=== PATIENT | female | born 1960 | race African-American/Black ===

== ENCOUNTER 2019-10-04 01:16 | Inpatient (IN) | payer MEDICAID ==
[~2019-10-04] VITALS: Ht 172.7 cm; Wt 80.7 kg
--- NOTE | 2019-10-04 02:06 | Emergency Room Report ---
History of Present Illness General Chief Complaint: Lower Extremity Injury Source: Patient Present Illness HPI 59-year-old female presents with left big toe pain and swelling. States that she injured it a few days ago. States that there appears to be drainage and pus. States she is a diabetic. Pain is throbbing, 10 out of 10, nonradiating. Feels chills. Afebrile in triage. Tachycardic. Denies chest pain or shortness of breath. Denies nausea or vomiting. No other aggravating relieving factors. Denies any other associated symptoms Allergies: Coded Allergies: No Known Allergies (Unverified , 10/04/19) COVID-19 Screening Contact w/high risk pt: No Experienced COVID-19 symptoms?: No COVID-19 Testing performed SYSTEM SPECIALIST: No Patient History Past Medical History: DM Past Surgical History: none Pertinent Family History: none Social History: Denies: smoking, alcohol use, drug use Last Menstrual Period: 2004 Now: No : 5 Para: 5 Immunizations: UTD Reviewed Nursing Documentation: PMH: Agreed; PSxH: Agreed Nursing Documentation-PMH Past Medical History: No History, Except For Hx Diabetes: Yes Review of Systems All Other Systems: negative except mentioned in HPI Physical Exam Vital Signs Date Time Temp Pulse Resp B/P (MAP) Pulse Ox O2 Delivery O2 Flow Rate FiO2 10/04/19 01:27 99.1 121 18 114/72 (86) 95 Room Air Sp02 EP Interpretation: reviewed, normal General Appearance: no apparent distress, alert, GCS 15, non-toxic Head: normocephalic Eyes: bilateral eye normal inspection, bilateral eye PERRL ENT: normal ENT inspection Neck: normal inspection Respiratory: chest non-tender, lungs clear, normal breath sounds, speaking full sentences Cardiovascular #1: no edema, tachycardia Gastrointestinal: normal bowel sounds, non tender, soft, non-distended, no guarding, no rebound Rectal: deferred Genitourinary: no CVA tenderness Musculoskeletal: back normal, normal range of motion, gait/station normal, swelling - L big toe Neurologic: alert, motor strength/tone normal, oriented x3, sensory intact, responsive, speech normal Psychiatric: normal inspection Skin: other - L big toe swelling/erythema/induration Lymphatic: normal inspection Procedures Critical Care Time Critical Care Time i. I feel this is a highly complex case requiring extensive working including EKG/Rhythm strip, Xray/CT/US, Blood/urine lab work, repeat exams while in ED, and administration of strong opiates/narcotics for pain control, admission to hospital or close patient follow up. Total time: 30 min bedside evaluation and treatment excludes procedures (EKG). Reason for critical care: tachycardia Possible complications: hypotension, hypertension, [place], shock, arrhythmias, metabolic acidosis, end organ damage, respiratory failure. Interventions: labs, IVFS, abx, insulin Course: patient presenting with pain/drainage L big toe. glucose > 400 no evidence of DKA, no leukocytosis. Xray no evidence of osteomyelitis. tachycardia improved after IVFS. Consultations: nursing staff, EMS, family Performed by: Dr Miller Tolerated well condition = serious j. because of unstable vital signs this patient had a condition that could potentially threaten life or limb. I feel this is a critical patient who required my full attention while patient was considered critical. Total Critical Care Time excluding procedures was greater than 35 minutes Medical Decision Making Diagnostic Impression: Primary Impression: Cellulitis of toe of left foot Additional Impression: Uncontrolled diabetes mellitus Qualified Codes: E13.65 - Other specified diabetes mellitus with hyperglycemia ER Course Hospital Course 59-year-old female presents to ED with pain/swelling L big toe. Differential diagnoses include: Cellulitis, abscess, rash. Clinical course Patient placed on stretcher. After initial history and physical I ordered labs , blood Cx, UA, IVFs labs reviewed - no leukocytosis, Hb/Hct stable, glucose > 400 no evidnece of DKA , lactic 2.2 EKG - sinus tachycardia no acute ischemic changes interpreted by me foot xray - no obvious evidence of osteomyelitis antibiotics given. given IVFs. given insulin Case discussed with Dr Barkley and he agreed to accept the patient to his service for further care and support Initially tachycardic resolved with IV fluids. Diagnosis - cellulitis of toe of L foot, uncontrolled diabetes Patient admitted to floor in serious condition Laboratory Tests Test 10/04/19 01:45 10/04/19 02:20 White Blood Count 7.8 K/UL (4.8-10.8) Red Blood Count 4.28 M/UL (4.20-5.40) Hemoglobin 11.6 G/DL (12.0-16.0) L Hematocrit 35.7 % (37.0-47.0) L Mean Corpuscular Volume 83 FL (80-99) Mean Corpuscular Hemoglobin 27.1 PG (27.0-31.0) Mean Corpuscular Hemoglobin Concent 32.6 G/DL (32.0-36.0) Red Cell Distribution Width 12.9 % (11.6-14.8) Platelet Count 260 K/UL (150-450) Mean Platelet Volume 8.2 FL (6.5-10.1) Neutrophils (%) (Auto) 70.8 % (45.0-75.0) Lymphocytes (%) (Auto) 19.1 % (20.0-45.0) L Monocytes (%) (Auto) 8.7 % (1.0-10.0) Eosinophils (%) (Auto) 0.4 % (0.0-3.0) Basophils (%) (Auto) 1.0 % (0.0-2.0) Sodium Level 133 MMOL/L (136-145) L Potassium Level 4.2 MMOL/L (3.5-5.1) Chloride Level 98 MMOL/L (98-107) Carbon Dioxide Level 27 MMOL/L (21-32) Anion Gap 8 mmol/L (5-15) Blood Urea Nitrogen 23 mg/dL (7-18) H Creatinine 1.1 MG/DL (0.55-1.30) Estimat Glomerular Filtration Rate > 60 mL/min (>60) Glucose Level 403 MG/DL (74-106) H Calcium Level 10.2 MG/DL (8.5-10.1) H Total Bilirubin 0.2 MG/DL (0.2-1.0) Aspartate Amino Transf (AST/SGOT) 16 U/L (15-37) Alanine Aminotransferase (ALT/SGPT) 22 U/L (12-78) Alkaline Phosphatase 93 U/L (46-116) Total Protein 8.0 G/DL (6.4-8.2) Albumin 3.6 G/DL (3.4-5.0) Globulin 4.4 g/dL Albumin/Globulin Ratio 0.8 (1.0-2.7) L Lactic Acid Level 2.20 mmol/L (0.4-2.0) H EKG Diagnostic Results Rate: tachycardiac Rhythm: NSR ST Segments: no acute changes ASA given to the pt in ED: No Rhythm Strip Diag. Results EP Interpretation: yes Rhythm: NSR, no PVC's, no ectopy Other X-Ray Diagnostic Results Other X-Ray Diagnostic Results : X-Ray ordered: L foot # of Views/Limited Vs Complete: 3 View Indication: Pain EP Interpretation: Yes Interpretation: no dislocation, no soft tissue swelling, no fractures Impression: No acute disease Electronically Signed by: Electronically signed by Malik Miller MD Last Vital Signs Date Time Temp Pulse Resp B/P (MAP) Pulse Ox O2 Delivery O2 Flow Rate FiO2 10/04/19 01:27 99.1 121 18 114/72 (86) 95 Room Air Status: improved Disposition: ADMITTED INPATIENT Condition: Serious Referrals: NOT CHOSEN IPA/,REFERRING (PCP) Malik Miller MD Oct 04, 2019 02:06
[2019-10-04 02:34] LABS: ANION GAP 8 mmol/L (5-15); BLOOD UREA NITROGEN 23 mg/dL (7-18); CALCIUM 10.2 MG/DL (8.5-10.1); CARBON DIOXIDE 27 MMOL/L (21-32); CHLORIDE 98 MMOL/L (98-107); CREATININE 1.1 MG/DL (0.55-1.30); EOSINOPHILS % (AUTO) 0.4 % (0.0-3.0); HEMATOCRIT 35.7 % (37.0-47.0); HEMOGLOBIN 11.6 G/DL (12.0-16.0); LYMPHOCYTES % (AUTO) 19.1 % (20.0-45.0); MEAN CORPUSCULAR VOLUME 83 FL (80-99); MONOCYTES % (AUTO) 8.7 % (1.0-10.0); NEUTROPHILS % (AUTO) 70.8 % (45.0-75.0); PLATELET COUNT 260 K/UL (150-450); POTASSIUM 4.2 MMOL/L (3.5-5.1); RED BLOOD COUNT 4.28 M/UL (4.20-5.40); RED CELL DISTRIBUTION WIDTH 12.9 % (11.6-14.8); SODIUM 133 MMOL/L (136-145); WHITE BLOOD COUNT 7.8 K/UL (4.8-10.8)
[2019-10-04 02:37] LABS: ALANINE AMINOTRANSFERASE 22 U/L (12-78); ALBUMIN 3.6 G/DL (3.4-5.0); ALBUMIN/GLOBULIN RATIO 0.8 (1.0-2.7); ALKALINE PHOSPHATASE 93 U/L (46-116); ASPARTATE AMINO TRANSFERASE 16 U/L (15-37); BILIRUBIN,TOTAL 0.2 MG/DL (0.2-1.0)
[2019-10-04] MEDS ORDERED: Insulin Human Regular 100units/ml 3ml IV ONE (02:45)
[2019-10-04] MEDS ORDERED: Morphine Sulfate 4mg/ml Inj (IV USE ONLY) IVP PRN (03:00)
[2019-10-04] MEDS ORDERED: Ketorolac 30mg Inj IV PRN (03:00)
[2019-10-04] MEDS ORDERED: METFORMIN500 MG/5 M PO (03:25)
[2019-10-04] MEDS ORDERED: HUMALOG100 UNIT/3 SUBQ (03:25)
[2019-10-04] MEDS ORDERED: LANTUS SOL100 UNIT/1 SUBQ (03:25)
[2019-10-04 04:00] VITALS: BP 123/74
[2019-10-04] MEDS ORDERED: Morphine Sulfate 2mg/ml Inj(IV/IM USE ONLY) IVP PRN (06:45)
[2019-10-04 08:00] VITALS: BP 106/55
[2019-10-04] MEDS: Heparin 5000 units/ml inj SUBQ SCH ×2 (08:55→22:11)
[2019-10-04] MEDS ORDERED: metFORMIN 500mg tab ORAL SCH (09:00)
[2019-10-04] MEDS: Levemir Flexpen SUBQ SCH (09:40)
--- NOTE | 2019-10-04 10:08 | Diagnostic Imaging Report ---
EXAM: X-RAY XRAY Foot Complete L CLINICAL HISTORY: Foot pain. No history of injury.. COMPARISON: None FINDINGS: Total of 3 views of the left foot were obtained. Alignment is anatomic. There is no fracture, bony lesions or erosions. Joint spaces are unremarkable. Surrounding soft tissue is normal. IMPRESSION: NO ACUTE BONY ABNORMALITY.
--- NOTE | 2019-10-04 10:28 | Consultation ---
History of Present Illness General Date patient seen: Oct 04, 2019 Chief Complaint: Lower Extremity Injury Present Illness HPI 59 y/o F with hx of Dm2 presented to ED on 10/03 with L 1st toe pain and swelling after a injury a few days ago. Patient reports it drain pus. Pain is described as throbbing, 10/10 intensity and non radiating. + chills. Denied chest pain, SOB, n/v/d. Allergies: Coded Allergies: No Known Allergies (Unverified , 10/04/19) Medication History Scheduled Insulin Glargine (Lantus), 15 SUBQ BEDTIME, (Reported) Insulin Lispro (Humalog), 12 UNITS SUBQ AC, (Reported) Metformin HCl (Metformin HCl), 1,000 MG PO BID, (Reported) Patient History Healthcare decision maker Resuscitation status Advanced Directive on File Patient History Narrative Pmhx: as above Shx: Denies: smoking, alcohol use, drug use Fhx: non contributory Review of Systems All Other Systems: negative except mentioned in HPI Physical Exam Physical Exam Narrative General Appearance: no apparent distress, alert Head: normocephalic Eyes: bilateral eye normal inspection, bilateral eye PERRL ENT: normal ENT inspection Neck: normal inspection Respiratory: chest non-tender, lungs clear, normal breath sounds, speaking full sentences Cardiovascular #1: no edema, tachycardia Gastrointestinal: normal bowel sounds, non tender, soft, non-distended, no guarding, no rebound Skin: other - L big toe swelling/erythema/induration Last 24 Hour Vital Signs Date Time Temp Pulse Resp B/P (MAP) Pulse Ox O2 Delivery O2 Flow Rate FiO2 10/04/19 08:00 98.4 95 17 106/55 (72) 99 10/04/19 04:53 Room Air 10/04/19 04:00 98.2 102 18 123/74 (90) 98 10/04/19 03:41 98.9 98 18 127/78 97 Room Air 10/04/19 01:27 99.1 121 18 114/72 (86) 95 Room Air Laboratory Tests Test 10/04/19 01:45 10/04/19 02:20 10/04/19 03:25 White Blood Count 7.8 K/UL (4.8-10.8) Red Blood Count 4.28 M/UL (4.20-5.40) Hemoglobin 11.6 G/DL (12.0-16.0) L Hematocrit 35.7 % (37.0-47.0) L Mean Corpuscular Volume 83 FL (80-99) Mean Corpuscular Hemoglobin 27.1 PG (27.0-31.0) Mean Corpuscular Hemoglobin Concent 32.6 G/DL (32.0-36.0) Red Cell Distribution Width 12.9 % (11.6-14.8) Platelet Count 260 K/UL (150-450) Mean Platelet Volume 8.2 FL (6.5-10.1) Neutrophils (%) (Auto) 70.8 % (45.0-75.0) Lymphocytes (%) (Auto) 19.1 % (20.0-45.0) L Monocytes (%) (Auto) 8.7 % (1.0-10.0) Eosinophils (%) (Auto) 0.4 % (0.0-3.0) Basophils (%) (Auto) 1.0 % (0.0-2.0) Sodium Level 133 MMOL/L (136-145) L Potassium Level 4.2 MMOL/L (3.5-5.1) Chloride Level 98 MMOL/L (98-107) Carbon Dioxide Level 27 MMOL/L (21-32) Anion Gap 8 mmol/L (5-15) Blood Urea Nitrogen 23 mg/dL (7-18) H Creatinine 1.1 MG/DL (0.55-1.30) Estimat Glomerular Filtration Rate > 60 mL/min (>60) Glucose Level 403 MG/DL (74-106) H Calcium Level 10.2 MG/DL (8.5-10.1) H Total Bilirubin 0.2 MG/DL (0.2-1.0) Aspartate Amino Transf (AST/SGOT) 16 U/L (15-37) Alanine Aminotransferase (ALT/SGPT) 22 U/L (12-78) Alkaline Phosphatase 93 U/L (46-116) Total Protein 8.0 G/DL (6.4-8.2) Albumin 3.6 G/DL (3.4-5.0) Globulin 4.4 g/dL Albumin/Globulin Ratio 0.8 (1.0-2.7) L Lactic Acid Level 2.20 mmol/L (0.4-2.0) H 2.30 mmol/L (0.66-2.22) H Height (Feet): 5 Height (Inches): 8.00 Weight (Pounds): 178 Medications Current Medications Medications (Trade) Dose Ordered Sig/Jerman Route PRN Reason Start Time Stop Time Status Last Admin Dose Admin Dextrose (Dextrose 50%) 25 ml Q30M PRN IV Hypoglycemia 10/04/19 06:45 01/02/20 06:44 Dextrose (Dextrose 50%) 50 ml Q30M PRN IV Hypoglycemia 10/04/19 06:45 01/02/20 06:44 Heparin Sodium (Porcine) (Heparin 5000 units/ml) 5,000 units EVERY 12 HOURS SUBQ 10/04/19 09:00 11/18/19 08:59 10/04/19 08:55 Insulin Aspart (NovoLOG) BEFORE MEALS AND HS SUBQ 10/04/19 11:30 01/02/20 11:29 Insulin Detemir (Levemir) 24 units DAILY SUBQ 10/04/19 09:00 01/02/20 08:59 10/04/19 09:40 Metformin HCl (Glucophage) 1,000 mg BID ORAL 10/04/19 09:00 11/03/19 08:59 10/04/19 08:52 Morphine Sulfate (Morphine Sulfate) 2 mg Q4H PRN IVP For Pain 10/04/19 06:45 10/11/19 06:44 Sodium Chloride 1,000 ml @ 75 mls/hr [id number] IV 10/04/19 07:44 11/03/19 07:43 10/04/19 08:52 Assessment/Plan Assessment/Plan: Abx: Clindamycin x1 10/03 Assessment: L 1st toe cellulitis, probable abscess- r/o OM -L foot xray: NO ACUTE BONY ABNORMALITY. Afebrile No leukocytosis Dm2 Plan: -Start empiric IV Vancomycin, Flagyl and Ceftriazone -f/u cx -Monitor CBC/CMP, temperatures -ESR, CRP -podiatry eval -f/u MRI Thank you for this consultation. Will continue to follow along with you. Discussed with Dionne Hendrix M.D. Oct 04, 2019 10:28
[2019-10-04] MEDS: NovoLOG Insulin Flexpen SUBQ SCH ×3 (11:48→21:00)
[2019-10-04] MEDS ORDERED: NovoLOG Insulin Flexpen SUBQ ONE (11:50)
[2019-10-04] MEDS: cefTRIAXone 1 GM in D5W 55 ML IVPB SCH (11:50)
[2019-10-04 12:00] VITALS: BP 129/75
[2019-10-04] MEDS: Vancomycin 1 GM in NS 275 ML IVPB SCH (13:26)
[2019-10-04] MEDS ORDERED: Gadavist 7.5mMol/7.5ml vial IV PRN (13:30)
--- NOTE | 2019-10-04 13:50 | Consultation ---
History of Present Illness General Date patient seen: Oct 04, 2019 Chief Complaint: Lower Extremity Injury Referring physician: Dr. Barkley Reason for Consultation: L foot cellulitis and possible osteomyelitis. Present Illness HPI Pt seen bedside for L foot cellulitis and infection of great toe. She states over the past few day she has noticed increased drainage and pain to her Great toe. She denies any recent constitutional symptoms. Allergies: Coded Allergies: No Known Allergies (Unverified , 10/04/19) Medication History Scheduled Insulin Glargine (Lantus), 15 SUBQ BEDTIME, (Reported) Insulin Lispro (Humalog), 12 UNITS SUBQ AC, (Reported) Metformin HCl (Metformin HCl), 1,000 MG PO BID, (Reported) Patient History Healthcare decision maker Resuscitation status Advanced Directive on File Physical Exam Physical Exam Narrative Focused LLE Exam Derm: L foot edema and erythema noted. (+) purulent drainage noted to L hallux distal tip. Vasc: 1/4 DP/PT pulses. WORKFORCE ADVISOR < seconds. Neuro: SILT diminished. MSK: MS/ROM WNL. Last 24 Hour Vital Signs Date Time Temp Pulse Resp B/P (MAP) Pulse Ox O2 Delivery O2 Flow Rate FiO2 10/04/19 12:00 98.2 61 18 129/75 (93) 97 10/04/19 09:00 Room Air 10/04/19 08:00 98.4 95 17 106/55 (72) 99 10/04/19 04:53 Room Air 10/04/19 04:00 98.2 102 18 123/74 (90) 98 10/04/19 03:41 98.9 98 18 127/78 97 Room Air 10/04/19 01:27 99.1 121 18 114/72 (86) 95 Room Air Intake and Output 10/03/19 10/04/19 19:00 07:00 # Voids 2 Laboratory Tests Test 10/04/19 01:45 10/04/19 02:20 10/04/19 03:25 White Blood Count 7.8 K/UL (4.8-10.8) Red Blood Count 4.28 M/UL (4.20-5.40) Hemoglobin 11.6 G/DL (12.0-16.0) L Hematocrit 35.7 % (37.0-47.0) L Mean Corpuscular Volume 83 FL (80-99) Mean Corpuscular Hemoglobin 27.1 PG (27.0-31.0) Mean Corpuscular Hemoglobin Concent 32.6 G/DL (32.0-36.0) Red Cell Distribution Width 12.9 % (11.6-14.8) Platelet Count 260 K/UL (150-450) Mean Platelet Volume 8.2 FL (6.5-10.1) Neutrophils (%) (Auto) 70.8 % (45.0-75.0) Lymphocytes (%) (Auto) 19.1 % (20.0-45.0) L Monocytes (%) (Auto) 8.7 % (1.0-10.0) Eosinophils (%) (Auto) 0.4 % (0.0-3.0) Basophils (%) (Auto) 1.0 % (0.0-2.0) Sodium Level 133 MMOL/L (136-145) L Potassium Level 4.2 MMOL/L (3.5-5.1) Chloride Level 98 MMOL/L (98-107) Carbon Dioxide Level 27 MMOL/L (21-32) Anion Gap 8 mmol/L (5-15) Blood Urea Nitrogen 23 mg/dL (7-18) H Creatinine 1.1 MG/DL (0.55-1.30) Estimat Glomerular Filtration Rate > 60 mL/min (>60) Glucose Level 403 MG/DL (74-106) H Calcium Level 10.2 MG/DL (8.5-10.1) H Total Bilirubin 0.2 MG/DL (0.2-1.0) Aspartate Amino Transf (AST/SGOT) 16 U/L (15-37) Alanine Aminotransferase (ALT/SGPT) 22 U/L (12-78) Alkaline Phosphatase 93 U/L (46-116) Total Protein 8.0 G/DL (6.4-8.2) Albumin 3.6 G/DL (3.4-5.0) Globulin 4.4 g/dL Albumin/Globulin Ratio 0.8 (1.0-2.7) L Lactic Acid Level 2.20 mmol/L (0.4-2.0) H 2.30 mmol/L (0.66-2.22) H Microbiology Date/Time Source Procedure Growth Status 10/04/19 03:25 Foot Left Gram Stain - Final Resulted 10/04/19 03:25 Foot Left Wound Culture Pending Resulted Height (Feet): 5 Height (Inches): 8.00 Weight (Pounds): 178 Medications Current Medications Medications (Trade) Dose Ordered Sig/Jerman Route PRN Reason Start Time Stop Time Status Last Admin Dose Admin Ceftriaxone Sodium 1 gm/ Dextrose 55 ml @ 110 mls/hr Q24H IVPB 10/04/19 12:00 10/11/19 11:59 10/04/19 11:50 Dextrose (Dextrose 50%) 25 ml Q30M PRN IV Hypoglycemia 10/04/19 06:45 01/02/20 06:44 Dextrose (Dextrose 50%) 50 ml Q30M PRN IV Hypoglycemia 10/04/19 06:45 01/02/20 06:44 Gadobutrol (Gadavist) 7.5 mmol NOW PRN IV Radiology Procedure 10/04/19 13:30 10/08/19 13:19 Heparin Sodium (Porcine) (Heparin 5000 units/ml) 5,000 units EVERY 12 HOURS SUBQ 10/04/19 09:00 11/18/19 08:59 10/04/19 08:55 Insulin Aspart (NovoLOG) BEFORE MEALS AND HS SUBQ 10/04/19 11:30 01/02/20 11:29 10/04/19 11:48 Insulin Detemir (Levemir) 24 units DAILY SUBQ 10/04/19 09:00 01/02/20 08:59 10/04/19 09:40 Morphine Sulfate (Morphine Sulfate) 2 mg Q4H PRN IVP For Pain 10/04/19 06:45 10/11/19 06:44 Sodium Chloride 1,000 ml @ 75 mls/hr [id number] IV 10/04/19 07:44 11/03/19 07:43 10/04/19 08:52 Vancomycin HCl (Vanco pharmacy to dose) 1 ea DAILY PRN MISC Per rx protocol 10/04/19 10:30 11/03/19 10:29 Vancomycin HCl 1 gm/Sodium Chloride 275 ml @ 183.708 mls/hr Q12HR@0100,1300 IVPB 10/04/19 13:00 10/09/19 12:59 10/04/19 13:26 Assessment/Plan Assessment/Plan: A: - L foot Cellulitis with hallux ulceration. - DM P: - Pt seen and evaluated. - Discuss findings with patient. - lab and chart reviewed. - MRI LLE order in chart, R/O OM or infectious process. - Arterial U/S LLE ordered, R/O PVD. - Cont IV ABx. - Daily betadine dressing. - Rec Vasc consult. - Patient may require surgical intervention pending MRI official report, medical and vasc clearance. - Podiatry will cont to monitor. David Caicedo DPM Oct 04, 2019 13:50
--- NOTE | 2019-10-04 15:45 | History and Physical Report ---
DATE OF ADMISSION: 10/04/2019 DATE AND TIME SEEN: 10/04/2019 at 10 a.m. CONSULTANTS: 1. Dr. Julian. 2. Kyle De Jesus MD 3. Laz Lazaro MD CHIEF COMPLAINT: Cellulitis of left toe, diabetes. BRIEF HISTORY: A 59-year-old female, who lives at home, presents with 3-days of increased cellulitis of the left toe, slightly draining, blood sugar out of control, came to [place], diagnosed with above, admitted to medical floor. Currently, calm in bed. No complaint. No chest pain. No shortness of breath. No nausea, vomiting, or diarrhea. PAST MEDICAL HISTORY: Diabetes and left toe injury. PAST SURGICAL HISTORY: Gallbladder. ALLERGIES: Denies. MEDICATIONS: Include insulin, metformin, heparin, morphine, Zofran, Tylenol. SOCIAL HISTORY: No smoking. No alcohol. No intravenous drug abuse. FAMILY HISTORY: Noncontributory. PHYSICAL EXAMINATION: GENERAL: Calm in bed, oriented x3, in no acute distress. VITAL SIGNS: Temperature is 98, pulse 95, respirations 17, blood pressure 106/65. CARDIOVASCULAR: No murmurs. LUNGS: Distant and clear. ABDOMEN: Bowel sounds are positive. Nontender. Nondistended. EXTREMITIES: No cyanosis, clubbing, or edema. Left toe is slightly swollen, slightly red, slightly draining NEUROLOGIC: The patient moves all extremities, slightly weak. LABORATORY AND DIAGNOSTIC DATA: Labs at this time show hemoglobin and hematocrit 11 and 35, otherwise CBC is normal. BMP shows sodium 133, BUN 23. Glucose was 403. Lactic acid 2.3. Calcium 10.2. ASSESSMENT: 1. Cellulitis, left toe drainage. 2. Anemia. 3. Diabetes, uncontrolled. PLAN: 1. Blood pressure, blood sugar, and pain control. 2. Wound care. 3. Dietary followup. 4. Antibiotics per Infectious Disease. 5. CBC and BMP in the morning. Hieu Barkley D.O. DR: IGLESIA JOB#: [id number] CC:
[2019-10-04 16:00] VITALS: BP 112/57
[2019-10-04] MEDS: metroNIDAZOLE 500mg tab ORAL SCH ×2 (16:11→22:06)
--- NOTE | 2019-10-04 16:14 | Diagnostic Imaging Report ---
Indication: Left first toe swelling with pain and draining pus Technique: Sagittal, coronal, and axial T1-weighted and STIR images of the left forefoot Comparison: No comparison MRI studies. Reference made to plain radiographs of earlier the same day Findings: There is markedly increased STIR signal and decreased T1 signal within the first distal phalanx. No other marrow signal abnormality is demonstrated. There is edema of the subcutaneous fat of the dorsum of the foot. There is circumferential edema of the soft tissues of the great toe. No discrete fluid collection to suggest drainable abscess demonstrated. Impression: Findings consistent with osteomyelitis of the first distal phalanx Dorsal soft tissue edema of the forefoot as well as circumferential edema of the great toe, most likely indicating cellulitis given stated clinical history. No evidence of drainable abscess Findings discussed by phone with Dr. Copeland the time of interpretation
--- NOTE | 2019-10-04 16:15 | Consultation ---
DATE OF CONSULTATION: 10/04/2019 ENDOCRINOLOGY CONSULTATION CONSULTING PHYSICIAN: Kyle De Jesus MD. REFERRING PHYSICIAN: Hieu Barkley DO. REASON FOR CONSULTATION: Diabetes management. HISTORY OF PRESENT ILLNESS: Patient is a 59-year-old female with history of diabetes for the past 25 years. She is on insulin Lantus and NovoLog as an outpatient. She presented to the hospital with the left big toe pain and swelling after injury few days before. Patient was admitted to the floor for observation and treatment of cellulitis. I was called to manage diabetes since the glucose has been running high. PAST MEDICAL HISTORY: Diabetes. PAST SURGICAL HISTORY: None. FAMILY HISTORY: Diabetes runs in both sides of the family. SOCIAL HISTORY: No smoking, alcohol, or drug use. REVIEW OF SYSTEMS: A 12-point review of systems was performed. The pertinent positives and negatives as mentioned in the history of present illness. LABORATORY VALUES: WBC 7.8, hemoglobin 11.6, hematocrit 35.7, platelets of 260. Sodium 133, potassium 4.2, chloride 98, bicarb 27, BUN 33, creatinine 1.1, glucose of 403, calcium of 10.2. PHYSICAL EXAMINATION: GENERAL: Patient is awake and alert, very pleasant. VITAL SIGNS: Blood pressure 106/55, heart rate 95, respiratory rate 17, temperature 98.4. HEENT: Pupils are equal and reactive to light and accommodation. Sclerae are anicteric. NECK: No JVD. No thyromegaly. No bruits. LUNGS: Clear. HEART: Regular rate and rhythm. ABDOMEN: Positive bowel sounds. Soft. EXTREMITIES: No clubbing or cyanosis. Positive for toe ulceration and cellulitis. DIAGNOSES: 1. Diabetes out of control. 2. Lactic acidosis. 3. Toe infection. PLAN: 1. Discontinue metformin since the patient has lactic acidosis. 2. Start Levemir 24 units daily. 3. Start NovoLog 8 units before each meal. 4. NovoLog sliding scale before meals and at bedtime. 5. Further adjustment according to the blood glucose values. I will follow her during the hospital stay. Thank you, Dr. Barkley, for the courtesy of this consultation. Kyle De Jesus M.D. DR: JENIFER JOB#: [id number] CC:
[2019-10-04 20:00] VITALS: BP 113/72
--- NOTE | 2019-10-04 20:41 | Consultation ---
History of Present Illness General Date patient seen: Oct 04, 2019 Reason for Hospitalization: Lower Extremity Injury Present Illness HPI 59F DM presented with left great toe cellulitis. trauma recently and since pain and swelling. admitted for care and management. ulcer noted on toe. surgery called to evaluate Allergies: Coded Allergies: No Known Allergies (Unverified , 10/04/19) COVID-19 Screening Contact w/high risk pt: No Experienced COVID-19 symptoms?: No Medication History Scheduled Insulin Glargine (Lantus), 15 SUBQ BEDTIME, (Reported) Insulin Lispro (Humalog), 12 UNITS SUBQ AC, (Reported) Metformin HCl (Metformin HCl), 1,000 MG PO BID, (Reported) Patient History History Provided By: Patient Healthcare decision maker Resuscitation status Advanced Directive on File Past Medical/Surgical History Past Medical/Surgical History: (1) Hyperglycemia (2) Uncontrolled diabetes mellitus (3) Cellulitis of toe of left foot Review of Systems Review of Symptoms General ROS: no weight loss or fever Psychological ROS: no depression or mood changes, no memory loss Ophthalmic ROS: no visual changes or eye irritation ENT ROS: no nasal congestion, hearing loss, dizziness Allergy and Immunology ROS: no allergic symptoms or urticaria Hematological and Lymphatic ROS: no swollen glands, unusual bleeding or bruising Endocrine ROS: no polyuria, polydipsia, weight changes, temperature intolerance Respiratory ROS: no cough, shortness of breath, or wheezing Cardiovascular ROS: no chest pain or dyspnea on exertion Gastrointestinal ROS: denies abdominal pain, bright red blood in stool. Musculoskeletal ROS: no myalgias or arthralgias Neurological ROS: no TIA or stroke symptoms Dermatological ROS: no new or changing skin lesions, rashes or pruritis Physical Exam Physical Exam General appearance: alert, cooperative, no distress, appears stated age Head: Normocephalic, without obvious abnormality, atraumatic Eyes: conjunctivae/corneas clear. PERRL, EOM's intact. Fundi benign Throat: Lips, mucosa, and tongue normal. Teeth and gums normal Neck: supple, symmetrical, trachea midline, no adenopathy, thyroid: not enlarged, symmetric, no tenderness/mass/nodules, no carotid bruit and no JVD Lungs: clear to auscultation bilaterally Heart: regular rate and rhythm, S1, S2 normal, no murmur, click, rub or gallop Abdomen: soft, non-tender. Bowel sounds normal. No masses, no organomegaly Extremities: extremities see below Pulses: decreased b/l Skin: Skin color, texture, turgor normal. No rashes or lesions Neurologic: Grossly normal Last 24 Hour Vital Signs Date Time Temp Pulse Resp B/P (MAP) Pulse Ox O2 Delivery O2 Flow Rate FiO2 10/04/19 16:00 98.4 88 18 112/57 (75) 100 10/04/19 12:00 98.2 61 18 129/75 (93) 97 10/04/19 09:00 Room Air 10/04/19 08:00 98.4 95 17 106/55 (72) 99 10/04/19 04:53 Room Air 10/04/19 04:00 98.2 102 18 123/74 (90) 98 10/04/19 03:41 98.9 98 18 127/78 97 Room Air 10/04/19 01:27 99.1 121 18 114/72 (86) 95 Room Air Intake and Output 10/03/19 10/04/19 19:00 07:00 # Voids 2 Laboratory Tests Test 10/04/19 01:45 10/04/19 02:20 10/04/19 03:25 White Blood Count 7.8 K/UL (4.8-10.8) Red Blood Count 4.28 M/UL (4.20-5.40) Hemoglobin 11.6 G/DL (12.0-16.0) L Hematocrit 35.7 % (37.0-47.0) L Mean Corpuscular Volume 83 FL (80-99) Mean Corpuscular Hemoglobin 27.1 PG (27.0-31.0) Mean Corpuscular Hemoglobin Concent 32.6 G/DL (32.0-36.0) Red Cell Distribution Width 12.9 % (11.6-14.8) Platelet Count 260 K/UL (150-450) Mean Platelet Volume 8.2 FL (6.5-10.1) Neutrophils (%) (Auto) 70.8 % (45.0-75.0) Lymphocytes (%) (Auto) 19.1 % (20.0-45.0) L Monocytes (%) (Auto) 8.7 % (1.0-10.0) Eosinophils (%) (Auto) 0.4 % (0.0-3.0) Basophils (%) (Auto) 1.0 % (0.0-2.0) Sodium Level 133 MMOL/L (136-145) L Potassium Level 4.2 MMOL/L (3.5-5.1) Chloride Level 98 MMOL/L (98-107) Carbon Dioxide Level 27 MMOL/L (21-32) Anion Gap 8 mmol/L (5-15) Blood Urea Nitrogen 23 mg/dL (7-18) H Creatinine 1.1 MG/DL (0.55-1.30) Estimat Glomerular Filtration Rate > 60 mL/min (>60) Glucose Level 403 MG/DL (74-106) H Calcium Level 10.2 MG/DL (8.5-10.1) H Total Bilirubin 0.2 MG/DL (0.2-1.0) Aspartate Amino Transf (AST/SGOT) 16 U/L (15-37) Alanine Aminotransferase (ALT/SGPT) 22 U/L (12-78) Alkaline Phosphatase 93 U/L (46-116) Total Protein 8.0 G/DL (6.4-8.2) Albumin 3.6 G/DL (3.4-5.0) Globulin 4.4 g/dL Albumin/Globulin Ratio 0.8 (1.0-2.7) L Lactic Acid Level 2.20 mmol/L (0.4-2.0) H 2.30 mmol/L (0.66-2.22) H Microbiology Date/Time Source Procedure Growth Status 10/04/19 03:25 Foot Left Gram Stain - Final Resulted 10/04/19 03:25 Foot Left Wound Culture Pending Resulted Height (Feet): 5 Height (Inches): 8.00 Weight (Pounds): 178 Medications Current Medications Medications (Trade) Dose Ordered Sig/Jerman Route PRN Reason Start Time Stop Time Status Last Admin Dose Admin Ceftriaxone Sodium 1 gm/ Dextrose 55 ml @ 110 mls/hr Q24H IVPB 10/04/19 12:00 10/11/19 11:59 10/04/19 11:50 Dextrose (Dextrose 50%) 25 ml Q30M PRN IV Hypoglycemia 10/04/19 06:45 01/02/20 06:44 Dextrose (Dextrose 50%) 50 ml Q30M PRN IV Hypoglycemia 10/04/19 06:45 01/02/20 06:44 Gadobutrol (Gadavist) 7.5 mmol NOW PRN IV Radiology Procedure 10/04/19 13:30 10/08/19 13:19 Heparin Sodium (Porcine) (Heparin 5000 units/ml) 5,000 units EVERY 12 HOURS SUBQ 10/04/19 09:00 11/18/19 08:59 10/04/19 08:55 Insulin Aspart (NovoLOG) BEFORE MEALS AND HS SUBQ 10/04/19 11:30 01/02/20 11:29 10/04/19 16:41 Insulin Detemir (Levemir) 24 units DAILY SUBQ 10/04/19 09:00 01/02/20 08:59 10/04/19 09:40 Metronidazole (Flagyl) 500 mg Q8HR ORAL 10/04/19 14:00 10/11/19 13:59 10/04/19 16:11 Morphine Sulfate (Morphine Sulfate) 2 mg Q4H PRN IVP For Pain 10/04/19 06:45 10/11/19 06:44 Sodium Chloride 1,000 ml @ 75 mls/hr Q21Q40S IV 10/04/19 07:44 11/03/19 07:43 10/04/19 08:52 Vancomycin HCl (Vanco pharmacy to dose) 1 ea DAILY PRN MISC Per rx protocol 10/04/19 10:30 11/03/19 10:29 Vancomycin HCl 1 gm/Sodium Chloride 275 ml @ 183.708 mls/hr Q12HR@0100,1300 IVPB 10/04/19 13:00 10/09/19 12:59 10/04/19 13:26 Assessment/Plan Problem List: (1) Hyperglycemia ICD Codes: R73.9 - Hyperglycemia, unspecified SNOMED: 70125364 (2) Uncontrolled diabetes mellitus ICD Codes: E11.65 - Type 2 diabetes mellitus with hyperglycemia SNOMED: 53272881, 559089221 Qualifiers: Qualified Codes: E13.65 - Other specified diabetes mellitus with hyperglycemia (3) Cellulitis of toe of left foot Assessment & Plan: left great toe cellulitis and ulcer MRI noted plan for podiatry eval okay for diet local wound care will follow with recs abx thank you There is markedly increased STIR signal and decreased T1 signal within the first distal phalanx. No other marrow signal abnormality is demonstrated. There is edema of the subcutaneous fat of the dorsum of the foot. There is circumferential edema of the soft tissues of the great toe. No discrete fluid collection to suggest drainable abscess demonstrated. Impression: Findings consistent with osteomyelitis of the first distal phalanx Dorsal soft tissue edema of the forefoot as well as circumferential edema of the great toe, most likely indicating cellulitis given stated clinical history. No evidence of drainable abscess ICD Codes: L03.032 - Cellulitis of left toe SNOMED: 50570987 Washington Copeland Oct 04, 2019 20:41
[2019-10-05] VITALS: BP 122/69
[2019-10-05] MEDS: Vancomycin 1 GM in NS 275 ML IVPB SCH ×2 (00:47→13:03)
[2019-10-05 04:00] VITALS: BP 117/71
[2019-10-05] MEDS: metroNIDAZOLE 500mg tab ORAL SCH ×3 (06:15→21:23)
[2019-10-05] MEDS: NovoLOG Insulin Flexpen SUBQ SCH ×6 (06:17→21:00)
[2019-10-05 06:21] LABS: ANION GAP 6 mmol/L (5-15); BLOOD UREA NITROGEN 12 mg/dL (7-18); CALCIUM 9.4 MG/DL (8.5-10.1); CARBON DIOXIDE 29 MMOL/L (21-32); CHLORIDE 102 MMOL/L (98-107); CREATININE 0.7 MG/DL (0.55-1.30); POTASSIUM 3.9 MMOL/L (3.5-5.1); SODIUM 137 MMOL/L (136-145)
[2019-10-05 06:23] LABS: EOSINOPHILS % (AUTO) 0.5 % (0.0-3.0); HEMATOCRIT 35.1 % (37.0-47.0); HEMOGLOBIN 11.5 G/DL (12.0-16.0); LYMPHOCYTES % (AUTO) 36.8 % (20.0-45.0); MEAN CORPUSCULAR VOLUME 82 FL (80-99); MONOCYTES % (AUTO) 8.7 % (1.0-10.0); NEUTROPHILS % (AUTO) 52.9 % (45.0-75.0); PLATELET COUNT 267 K/UL (150-450); RED BLOOD COUNT 4.26 M/UL (4.20-5.40); RED CELL DISTRIBUTION WIDTH 12.9 % (11.6-14.8); WHITE BLOOD COUNT 7.2 K/UL (4.8-10.8)
--- NOTE | 2019-10-05 07:12 | General Progress Note ---
Assessment/Plan Problem List: (1) Uncontrolled diabetes mellitus ICD Codes: E11.65 - Type 2 diabetes mellitus with hyperglycemia SNOMED: 95068189, 344903674 Qualifiers: Qualified Codes: E13.65 - Other specified diabetes mellitus with hyperglycemia (2) Hyperglycemia ICD Codes: R73.9 - Hyperglycemia, unspecified SNOMED: 54067922 (3) Cellulitis of toe of left foot ICD Codes: L03.032 - Cellulitis of left toe SNOMED: 44010865 Assessment/Plan: hold Metformin due to lactic acidosis continue Levemir 24 units daily continue Novolog 8 units ac tid continue Novolog sliding scale ac / hs hypoglycemia protocol in order Subjective Allergies: Coded Allergies: No Known Allergies (Unverified , 10/04/19) All Systems: reviewed and negative except above Subjective events noted glucose values improving Item Value Date Time Bedside Blood Glucose 191 mg/dl H 10/05/19 0617 Bedside Blood Glucose 125 mg/dl H 10/04/19 2100 Bedside Blood Glucose 230 mg/dl H 10/04/19 1641 Bedside Blood Glucose 310 mg/dl H 10/04/19 1148 Bedside Blood Glucose 146 mg/dl H 10/04/19 0940 Bedside Blood Glucose 354 mg/dl H 10/04/19 0251 Objective Last 24 Hour Vital Signs Date Time Temp Pulse Resp B/P (MAP) Pulse Ox O2 Delivery O2 Flow Rate FiO2 10/05/19 04:00 98.6 90 20 117/71 (86) 97 10/05/19 00:00 98.4 87 20 122/69 (86) 99 10/04/19 21:00 Room Air 10/04/19 20:00 98.8 87 20 113/72 (86) 97 10/04/19 16:00 98.4 88 18 112/57 (75) 100 10/04/19 12:00 98.2 61 18 129/75 (93) 97 10/04/19 09:00 Room Air 10/04/19 08:00 98.4 95 17 106/55 (72) 99 Intake and Output 10/04/19 10/05/19 19:00 07:00 Intake Total 1537.416 ml 1100.000 ml Balance 1537.416 ml 1100.000 ml Intake Oral 720 ml 300 ml IV Total 817.416 ml 800.000 ml # Voids 4 Laboratory Tests 10/04/19 22:04: POC Whole Blood Glucose [Pending] 10/05/19 05:18: POC Whole Blood Glucose 191H 10/05/19 05:20: White Blood Count 7.2, Red Blood Count 4.26, Hemoglobin 11.5L, Hematocrit 35.1L , Mean Corpuscular Volume 82, Mean Corpuscular Hemoglobin 26.9L, Mean Corpuscular Hemoglobin Concent 32.7, Red Cell Distribution Width 12.9, Platelet Count 267, Mean Platelet Volume 7.6, Neutrophils (%) (Auto) 52.9, Lymphocytes (% ) (Auto) 36.8, Monocytes (%) (Auto) 8.7, Eosinophils (%) (Auto) 0.5, Basophils ( %) (Auto) 1.0, Erythrocyte Sedimentation Rate [Pending], Sodium Level 137, Potassium Level 3.9, Chloride Level 102, Carbon Dioxide Level 29, Anion Gap 6, Blood Urea Nitrogen 12, Creatinine 0.7, Estimat Glomerular Filtration Rate > 60 , Glucose Level 185#H, Lactic Acid Level 0.80, Calcium Level 9.4, C-Reactive Protein, Quantitative 7.5H Height (Feet): 5 Height (Inches): 8.00 Weight (Pounds): 178 General Appearance: no apparent distress Neck: normal alignment Cardiovascular: normal rate Respiratory/Chest: lungs clear Abdomen: normal bowel sounds Objective Current Medications Medications (Trade) Dose Ordered Sig/Jerman Route PRN Reason Start Time Stop Time Status Last Admin Dose Admin Ceftriaxone Sodium 1 gm/ Dextrose 55 ml @ 110 mls/hr Q24H IVPB 10/04/19 12:00 10/11/19 11:59 10/04/19 11:50 Dextrose (Dextrose 50%) 25 ml Q30M PRN IV Hypoglycemia 10/04/19 06:45 01/02/20 06:44 Dextrose (Dextrose 50%) 50 ml Q30M PRN IV Hypoglycemia 10/04/19 06:45 01/02/20 06:44 Gadobutrol (Gadavist) 7.5 mmol NOW PRN IV Radiology Procedure 10/04/19 13:30 10/08/19 13:19 Heparin Sodium (Porcine) (Heparin 5000 units/ml) 5,000 units EVERY 12 HOURS SUBQ 10/04/19 09:00 11/18/19 08:59 10/04/19 22:11 Insulin Aspart (NovoLOG) BEFORE MEALS AND HS SUBQ 10/04/19 11:30 01/02/20 11:29 10/05/19 06:17 Insulin Detemir (Levemir) 24 units DAILY SUBQ 10/04/19 09:00 01/02/20 08:59 10/04/19 09:40 Metronidazole (Flagyl) 500 mg Q8HR ORAL 10/04/19 14:00 10/11/19 13:59 10/05/19 06:15 Morphine Sulfate (Morphine Sulfate) 2 mg Q4H PRN IVP For Pain 10/04/19 06:45 10/11/19 06:44 Sodium Chloride 1,000 ml @ 75 mls/hr [id number] IV 10/04/19 07:44 11/03/19 07:43 10/05/19 00:47 Vancomycin HCl (Vanco pharmacy to dose) 1 ea DAILY PRN MISC Per rx protocol 10/04/19 10:30 11/03/19 10:29 Vancomycin HCl 1 gm/Sodium Chloride 275 ml @ 183.708 mls/hr Q12HR@0100,1300 IVPB 10/04/19 13:00 10/09/19 12:59 10/05/19 00:47 Kyle De Jesus MD Oct 05, 2019 07:12
[2019-10-05 08:00] VITALS: BP 118/80
--- NOTE | 2019-10-05 08:01 | General Progress Note ---
Assessment/Plan Problem List: (1) Hyperglycemia ICD Codes: R73.9 - Hyperglycemia, unspecified SNOMED: 97968522 (2) Uncontrolled diabetes mellitus ICD Codes: E11.65 - Type 2 diabetes mellitus with hyperglycemia SNOMED: 18852530, 793433556 Qualifiers: Qualified Codes: E13.65 - Other specified diabetes mellitus with hyperglycemia (3) Cellulitis of toe of left foot ICD Codes: L03.032 - Cellulitis of left toe SNOMED: 73292317 Status: stable, progressing Assessment/Plan: wound care abx bs control cbc bmp am dc ig clear Subjective Constitutional: Reports: weakness Allergies: Coded Allergies: No Known Allergies (Unverified , 10/04/19) All Systems: reviewed and negative except above Subjective sleepy calm Objective Last 24 Hour Vital Signs Date Time Temp Pulse Resp B/P (MAP) Pulse Ox O2 Delivery O2 Flow Rate FiO2 10/05/19 04:00 98.6 90 20 117/71 (86) 97 10/05/19 00:00 98.4 87 20 122/69 (86) 99 10/04/19 21:00 Room Air 10/04/19 20:00 98.8 87 20 113/72 (86) 97 10/04/19 16:00 98.4 88 18 112/57 (75) 100 10/04/19 12:00 98.2 61 18 129/75 (93) 97 10/04/19 09:00 Room Air 10/04/19 08:00 98.4 95 17 106/55 (72) 99 Intake and Output 10/04/19 10/05/19 19:00 07:00 Intake Total 1537.416 ml 1100.000 ml Balance 1537.416 ml 1100.000 ml Intake Oral 720 ml 300 ml IV Total 817.416 ml 800.000 ml # Voids 4 Laboratory Tests 10/04/19 22:04: POC Whole Blood Glucose [Pending] 10/05/19 05:18: POC Whole Blood Glucose 191H 10/05/19 05:20: White Blood Count 7.2, Red Blood Count 4.26, Hemoglobin 11.5L, Hematocrit 35.1L , Mean Corpuscular Volume 82, Mean Corpuscular Hemoglobin 26.9L, Mean Corpuscular Hemoglobin Concent 32.7, Red Cell Distribution Width 12.9, Platelet Count 267, Mean Platelet Volume 7.6, Neutrophils (%) (Auto) 52.9, Lymphocytes (% ) (Auto) 36.8, Monocytes (%) (Auto) 8.7, Eosinophils (%) (Auto) 0.5, Basophils ( %) (Auto) 1.0, Erythrocyte Sedimentation Rate [Pending], Sodium Level 137, Potassium Level 3.9, Chloride Level 102, Carbon Dioxide Level 29, Anion Gap 6, Blood Urea Nitrogen 12, Creatinine 0.7, Estimat Glomerular Filtration Rate > 60 , Glucose Level 185#H, Lactic Acid Level 0.80, Calcium Level 9.4, C-Reactive Protein, Quantitative 7.5H Height (Feet): 5 Height (Inches): 8.00 Weight (Pounds): 178 General Appearance: lethargic EENT: normal ENT inspection Neck: normal alignment Cardiovascular: normal peripheral pulses, normal rate, regular rhythm Respiratory/Chest: chest wall non-tender, lungs clear, normal breath sounds Abdomen: normal bowel sounds, non tender, soft Extremities: normal inspection Edema: no edema noted Arm (L), no edema noted Arm (R), no edema noted Leg (L), no edema noted Leg (R), no edema noted Pedal (L), no edema noted Pedal (R), no edema noted Generalized Neurologic: motor weakness Skin: normal pigmentation, warm/dry Hieu Barkley DO Oct 05, 2019 08:01
[2019-10-05] MEDS: Heparin 5000 units/ml inj SUBQ SCH ×2 (08:43→21:30)
[2019-10-05] MEDS: Levemir Flexpen SUBQ SCH (08:44)
--- NOTE | 2019-10-05 11:39 | Diagnostic Imaging Report ---
Indication: Left big toe swelling, erythema, and pain, evidence of great toe osteomyelitis on MRI Technique: Grayscale and duplex images of the bilateral lower extremity arteries Comparison: none Findings: On the right, at all levels Doppler waveforms are biphasic or triphasic with sharp systolic peaks. No flow velocity elevation is demonstrated. Color Doppler imaging demonstrates no evidence of significant stenosis On the left, Doppler waveforms are biphasic or triphasic with sharp systolic peaks at the common femoral and superficial femoral artery levels. Popliteal artery waveforms and tibial artery waveforms are monophasic, but systolic peaks remain sharp. There is increased diastolic flow. No definite focal stenosis or flow velocity elevation is demonstrated on color Doppler Impression: Negative for evidence of significant peripheral arterial insufficiency on the right Monophasic but otherwise preserved waveforms on the left at the popliteal artery and distal levels. Suspect on the basis of decreased peripheral resistance due to hyperemia, but mild suprageniculate stenosis also possible.
[2019-10-05 12:00] VITALS: BP 122/86
[2019-10-05] MEDS: cefTRIAXone 1 GM in D5W 55 ML IVPB SCH (12:03)
--- NOTE | 2019-10-05 12:51 | Diagnostic Imaging Report ---
Indication: Left foot infection, pain, edema Technique: Grayscale and duplex images of the bilateral lower extremity veins Comparison: None Findings: Bilaterally, grayscale and duplex images demonstrate no evidence of intraluminal thrombus. Normal phasic Doppler waveforms, demonstrating normal augmentation response and no evidence of valvular insufficiency. Greater saphenous vein(s) and tibial veins are patent. Normal compressibility. Impression: Negative for evidence of lower extremity deep venous thrombosis bilaterally
--- NOTE | 2019-10-05 14:08 | Surgery Progress Note ---
Surgery Progress Note Subjective Additional Comments duplex noted doing well echo today no n/v/f/c on abx comfortable Objective Last 24 Hour Vital Signs Date Time Temp Pulse Resp B/P (MAP) Pulse Ox O2 Delivery O2 Flow Rate FiO2 10/05/19 12:00 97.8 88 20 122/86 (98) 97 10/05/19 09:00 Room Air 10/05/19 08:00 97.6 90 19 118/80 (93) 96 10/05/19 04:00 98.6 90 20 117/71 (86) 97 10/05/19 00:00 98.4 87 20 122/69 (86) 99 10/04/19 21:00 Room Air 10/04/19 20:00 98.8 87 20 113/72 (86) 97 10/04/19 16:00 98.4 88 18 112/57 (75) 100 I&O Intake and Output 10/04/19 10/05/19 19:00 07:00 Intake Total 1537.416 ml 1175.000 ml Balance 1537.416 ml 1175.000 ml Intake Oral 720 ml 300 ml IV Total 817.416 ml 875.000 ml # Voids 4 Dressing: dry Wound: clean Cardiovascular: RSR Respiratory: clear Abdomen: soft, non-tender, present bowel sounds Extremities: no edema, no tenderness, pulses, other Laboratory Tests Test 10/04/19 22:04 10/05/19 05:18 10/05/19 05:20 POC Whole Blood Glucose Pending 191 MG/DL (74-106) H White Blood Count 7.2 K/UL (4.8-10.8) Red Blood Count 4.26 M/UL (4.20-5.40) Hemoglobin 11.5 G/DL (12.0-16.0) L Hematocrit 35.1 % (37.0-47.0) L Mean Corpuscular Volume 82 FL (80-99) Mean Corpuscular Hemoglobin 26.9 PG (27.0-31.0) L Mean Corpuscular Hemoglobin Concent 32.7 G/DL (32.0-36.0) Red Cell Distribution Width 12.9 % (11.6-14.8) Platelet Count 267 K/UL (150-450) Mean Platelet Volume 7.6 FL (6.5-10.1) Neutrophils (%) (Auto) 52.9 % (45.0-75.0) Lymphocytes (%) (Auto) 36.8 % (20.0-45.0) Monocytes (%) (Auto) 8.7 % (1.0-10.0) Eosinophils (%) (Auto) 0.5 % (0.0-3.0) Basophils (%) (Auto) 1.0 % (0.0-2.0) Erythrocyte Sedimentation Rate 74 MM/HR (0-30) H Sodium Level 137 MMOL/L (136-145) Potassium Level 3.9 MMOL/L (3.5-5.1) Chloride Level 102 MMOL/L (98-107) Carbon Dioxide Level 29 MMOL/L (21-32) Anion Gap 6 mmol/L (5-15) Blood Urea Nitrogen 12 mg/dL (7-18) Creatinine 0.7 MG/DL (0.55-1.30) Estimat Glomerular Filtration Rate > 60 mL/min (>60) Glucose Level 185 MG/DL (74-106) #H Lactic Acid Level 0.80 mmol/L (0.4-2.0) Calcium Level 9.4 MG/DL (8.5-10.1) C-Reactive Protein, Quantitative 7.5 mg/dL (0.00-0.90) H Plan Problems: (1) Hyperglycemia (2) Uncontrolled diabetes mellitus (3) Cellulitis of toe of left foot Assessment & Plan: left great toe cellulitis and ulcer MRI noted plan for podiatry eval marlin for diet local wound care will follow with maria antonia tucker thank you There is markedly increased STIR signal and decreased T1 signal within the first distal phalanx. No other marrow signal abnormality is demonstrated. There is edema of the subcutaneous fat of the dorsum of the foot. There is circumferential edema of the soft tissues of the great toe. No discrete fluid collection to suggest drainable abscess demonstrated. Impression: Findings consistent with osteomyelitis of the first distal phalanx Dorsal soft tissue edema of the forefoot as well as circumferential edema of the great toe, most likely indicating cellulitis given stated clinical history. No evidence of drainable abscess Negative for evidence of significant peripheral arterial insufficiency on the right Monophasic but otherwise preserved waveforms on the left at the popliteal artery and distal levels. Suspect on the basis of decreased peripheral resistance due to hyperemia, but mild suprageniculate stenosis also possible. Washington Copeland Oct 05, 2019 14:08
--- NOTE | 2019-10-05 14:48 | Infectious Diseases Prog Note ---
Assessment/Plan Assessment: L 1st toe cellulitis, and OM 1st distal phalanx -MRI L foot: Findings consistent with osteomyelitis of the first distal phalanx. Dorsal soft tissue edema of the forefoot as well as circumferential edema of the great toe, most likely indicating cellulitis given stated clinical history. No evidence of drainable abscess -L foot xray: NO ACUTE BONY ABNORMALITY. -wound cx S. aureus (sensi P) -ESR 74, CRP 7.5 -v. duplex no DVT -a. duplex: Negative for evidence of significant peripheral arterial insufficiency on the right. Monophasic but otherwise preserved waveforms on the left at the popliteal artery and distal levels. Suspect on the basis of decreased peripheral resistance due to hyperemia, but mild suprageniculate stenosis also possible. Afebrile No leukocytosis Dm2 Plan: -Cont empiric IV Vancomycin, Flagyl and Ceftriaxone #2 pending wound cx --will need 6 weeks of treatment; ideally IV antibiotics; final wound cx pending for final regimen -10/03 SP Clindamycin x1 -f/u cx -Monitor CBC/CMP, temperatures -podiatry f/u -wound care per body team member and surgeon Thank you for this consultation. Will continue to follow along with you. Discussed with RN. Subjective Allergies: Coded Allergies: No Known Allergies (Unverified , 10/04/19) afebrile no leukocytosis Objective Last 24 Hour Vital Signs Date Time Temp Pulse Resp B/P (MAP) Pulse Ox O2 Delivery O2 Flow Rate FiO2 10/05/19 12:00 97.8 88 20 122/86 (98) 97 10/05/19 09:00 Room Air 10/05/19 08:00 97.6 90 19 118/80 (93) 96 10/05/19 04:00 98.6 90 20 117/71 (86) 97 10/05/19 00:00 98.4 87 20 122/69 (86) 99 10/04/19 21:00 Room Air 10/04/19 20:00 98.8 87 20 113/72 (86) 97 10/04/19 16:00 98.4 88 18 112/57 (75) 100 Height (Feet): 5 Height (Inches): 8.00 Weight (Pounds): 178 General Appearance: no apparent distress, alert Head: normocephalic Eyes: bilateral eye normal inspection, bilateral eye PERRL Respiratory: chest non-tender, lungs clear, normal breath sounds, speaking full sentences Cardiovascular #1: no edema, tachycardia Gastrointestinal: normal bowel sounds, non tender, soft, non-distended, no guarding, no rebound Skin: other - L big toe swelling/erythema/induration Microbiology Date/Time Source Procedure Growth Status 10/04/19 02:00 Blood Blood Culture - Preliminary NO GROWTH AFTER 24 HOURS Resulted 10/04/19 01:45 Blood Blood Culture - Preliminary NO GROWTH AFTER 24 HOURS Resulted 10/05/19 11:00 Nasopharynx SARS-CoV-2 RdRp Gene Assay - Final Complete 10/04/19 03:25 Foot Left Gram Stain - Final Resulted 10/04/19 03:25 Wound Culture - Preliminary Staphylococcus Aureus Resulted Laboratory Tests Test 10/04/19 22:04 10/05/19 05:18 10/05/19 05:20 POC Whole Blood Glucose Pending 191 MG/DL (74-106) H White Blood Count 7.2 K/UL (4.8-10.8) Red Blood Count 4.26 M/UL (4.20-5.40) Hemoglobin 11.5 G/DL (12.0-16.0) L Hematocrit 35.1 % (37.0-47.0) L Mean Corpuscular Volume 82 FL (80-99) Mean Corpuscular Hemoglobin 26.9 PG (27.0-31.0) L Mean Corpuscular Hemoglobin Concent 32.7 G/DL (32.0-36.0) Red Cell Distribution Width 12.9 % (11.6-14.8) Platelet Count 267 K/UL (150-450) Mean Platelet Volume 7.6 FL (6.5-10.1) Neutrophils (%) (Auto) 52.9 % (45.0-75.0) Lymphocytes (%) (Auto) 36.8 % (20.0-45.0) Monocytes (%) (Auto) 8.7 % (1.0-10.0) Eosinophils (%) (Auto) 0.5 % (0.0-3.0) Basophils (%) (Auto) 1.0 % (0.0-2.0) Erythrocyte Sedimentation Rate 74 MM/HR (0-30) H Sodium Level 137 MMOL/L (136-145) Potassium Level 3.9 MMOL/L (3.5-5.1) Chloride Level 102 MMOL/L (98-107) Carbon Dioxide Level 29 MMOL/L (21-32) Anion Gap 6 mmol/L (5-15) Blood Urea Nitrogen 12 mg/dL (7-18) Creatinine 0.7 MG/DL (0.55-1.30) Estimat Glomerular Filtration Rate > 60 mL/min (>60) Glucose Level 185 MG/DL (74-106) #H Lactic Acid Level 0.80 mmol/L (0.4-2.0) Calcium Level 9.4 MG/DL (8.5-10.1) C-Reactive Protein, Quantitative 7.5 mg/dL (0.00-0.90) H Current Medications Medications (Trade) Dose Ordered Sig/Jerman Route PRN Reason Start Time Stop Time Status Last Admin Dose Admin Ceftriaxone Sodium 1 gm/ Dextrose 55 ml @ 110 mls/hr Q24H IVPB 10/04/19 12:00 10/11/19 11:59 10/05/19 12:03 Dextrose (Dextrose 50%) 25 ml Q30M PRN IV Hypoglycemia 10/05/19 07:15 01/03/20 07:14 Dextrose (Dextrose 50%) 50 ml Q30M PRN IV Hypoglycemia 10/05/19 07:15 01/03/20 07:14 Gadobutrol (Gadavist) 7.5 mmol NOW PRN IV Radiology Procedure 10/04/19 13:30 10/08/19 13:19 Heparin Sodium (Porcine) (Heparin 5000 units/ml) 5,000 units EVERY 12 HOURS SUBQ 10/04/19 09:00 11/18/19 08:59 10/05/19 08:43 Insulin Aspart (NovoLOG) BEFORE MEALS AND HS SUBQ 10/04/19 11:30 01/02/20 11:29 10/05/19 12:07 Insulin Aspart (NovoLOG) 8 units NOVOTIAC SUBQ 10/05/19 11:50 01/03/20 11:49 10/05/19 12:07 Insulin Detemir (Levemir) 24 units DAILY SUBQ 10/04/19 09:00 01/02/20 08:59 10/05/19 08:44 Metronidazole (Flagyl) 500 mg Q8HR ORAL 10/04/19 14:00 10/11/19 13:59 10/05/19 13:04 Morphine Sulfate (Morphine Sulfate) 2 mg Q4H PRN IVP For Pain 10/04/19 06:45 10/11/19 06:44 Sodium Chloride 1,000 ml @ 75 mls/hr [id number] IV 10/04/19 07:44 11/03/19 07:43 10/05/19 12:04 Vancomycin HCl (Vanco pharmacy to dose) 1 ea DAILY PRN MISC Per rx protocol 10/04/19 10:30 11/03/19 10:29 Vancomycin HCl 1 gm/Sodium Chloride 275 ml @ 183.708 mls/hr Q12HR@0100,1300 IVPB 10/04/19 13:00 10/09/19 12:59 10/05/19 13:03 Dionne Blake M.D. Oct 05, 2019 14:48
[2019-10-05 16:00] VITALS: BP 104/60
[2019-10-06] VITALS: BP 136/75
[2019-10-06] MEDS: Vancomycin 1.25gm/NS Premix IVPB SCH ×2 (03:00→08:59)
[2019-10-06 04:00] VITALS: BP 121/71
[2019-10-06 05:55] LABS: BASOPHILS % (AUTO) 0.7 % (0.0-2.0); EOSINOPHILS % (AUTO) 0.5 % (0.0-3.0); HEMATOCRIT 36.4 % (37.0-47.0); HEMOGLOBIN 11.8 G/DL (12.0-16.0); MEAN CORPUSCULAR VOLUME 83 FL (80-99); MONOCYTES % (AUTO) 9.4 % (1.0-10.0); NEUTROPHILS % (AUTO) 49.4 % (45.0-75.0); PLATELET COUNT 297 K/UL (150-450); RED CELL DISTRIBUTION WIDTH 13.4 % (11.6-14.8); WHITE BLOOD COUNT 6.1 K/UL (4.8-10.8)
[2019-10-06 06:26] LABS: ANION GAP 6 mmol/L (5-15); BLOOD UREA NITROGEN 16 mg/dL (7-18); CALCIUM 10.4 MG/DL (8.5-10.1); CARBON DIOXIDE 30 MMOL/L (21-32); CHLORIDE 104 MMOL/L (98-107); CREATININE 0.9 MG/DL (0.55-1.30); POTASSIUM 4.6 MMOL/L (3.5-5.1); SODIUM 140 MMOL/L (136-145)
[2019-10-06] MEDS: NovoLOG Insulin Flexpen SUBQ SCH ×7 (06:30→20:37)
--- NOTE | 2019-10-06 06:31 | General Progress Note ---
Assessment/Plan Status: stable, progressing Assessment/Plan: (1) Hyperglycemia ICD Codes: R73.9 - Hyperglycemia, unspecified SNOMED: 89142520 (2) Uncontrolled diabetes mellitus ICD Codes: E11.65 - Type 2 diabetes mellitus with hyperglycemia SNOMED: 42184829, 431156642 Qualifiers: Qualified Codes: E13.65 - Other specified diabetes mellitus with hyperglycemia (3) Cellulitis of toe of left foot ICD Codes: L03.032 - Cellulitis of left toe SNOMED: 73139503 Status: stable, progressing Subjective Constitutional: Denies: no symptoms, chills, diaphoresis, fever, malaise, weakness, other HEENT: Denies: no symptoms, eye pain, blurred vision, tearing, double vision, ear pain, ear discharge, nose pain, nose congestion, throat pain, throat swelling, mouth pain, mouth swelling, other Cardiovascular: Denies: no symptoms, chest pain, edema, irregular heart rate, lightheadedness, palpitations, syncope, other Respiratory: Denies: no symptoms, cough, orthopnea, shortness of breath, SOB with excertion, SOB at rest, sputum, stridor, wheezing, other Gastrointestinal/Abdominal: Denies: no symptoms, abdomen distended, abdominal pain, black stools, tarry stools, blood in stool, constipated, diarrhea, difficulty swallowing, nausea, poor appetite, poor fluid intake, rectal bleeding , vomiting, other Genitourinary: Denies: no symptoms, burning, discharge, frequency, flank pain, hematuria, incontinence, pain, urgency, other Neurologic/Psychiatric: Denies: no symptoms, anxiety, depressed, emotional problems, headache, numbness, paresthesia, pre-existing deficit, seizure, tingling, tremors, weakness, other Allergies: Coded Allergies: No Known Allergies (Unverified , 10/04/19) Subjective 10/05 meds noted, covering for [place], no bleeding, cbc and bmp Objective Last 24 Hour Vital Signs Date Time Temp Pulse Resp B/P (MAP) Pulse Ox O2 Delivery O2 Flow Rate FiO2 10/06/19 00:00 98.1 89 18 136/75 (95) 100 10/05/19 21:00 Room Air 10/05/19 16:00 98.2 82 18 104/60 (75) 98 10/05/19 12:00 97.8 88 20 122/86 (98) 97 10/05/19 09:00 Room Air 10/05/19 08:00 97.6 90 19 118/80 (93) 96 Intake and Output 10/05/19 10/06/19 19:00 07:00 Intake Total 2297.416 ml 1116.666 ml Balance 2297.416 ml 1116.666 ml Intake Oral 1220 ml IV Total 1077.416 ml 1116.666 ml # Voids 6 Laboratory Tests 10/05/19 21:27: POC Whole Blood Glucose 124H 10/06/19 00:18: Vancomycin Level Trough 7.3 10/06/19 04:30: White Blood Count 6.1, Red Blood Count 4.40, Hemoglobin 11.8L, Hematocrit 36.4L , Mean Corpuscular Volume 83, Mean Corpuscular Hemoglobin 26.7L, Mean Corpuscular Hemoglobin Concent 32.3, Red Cell Distribution Width 13.4, Platelet Count 297, Mean Platelet Volume 6.5, Neutrophils (%) (Auto) 49.4, Lymphocytes (% ) (Auto) 40.0, Monocytes (%) (Auto) 9.4, Eosinophils (%) (Auto) 0.5, Basophils ( %) (Auto) 0.7, Sodium Level [Pending], Potassium Level [Pending], Chloride Level [Pending], Carbon Dioxide Level [Pending], Blood Urea Nitrogen [Pending], Creatinine [Pending], Estimat Glomerular Filtration Rate [Pending], Glucose Level [Pending], Calcium Level [Pending] Height (Feet): 5 Height (Inches): 8.00 Weight (Pounds): 178 Objective Dressing: dry Wound: clean Cardiovascular: RSR Respiratory: clear Abdomen: soft, non-tender, present bowel sounds Extremities: no edema, no tenderness, pulses, other Leoncio Campos MD Oct 06, 2019 06:31
[2019-10-06] MEDS: metroNIDAZOLE 500mg tab ORAL SCH ×3 (06:46→21:07)
--- NOTE | 2019-10-06 06:47 | General Progress Note ---
Assessment/Plan Problem List: (1) Uncontrolled diabetes mellitus ICD Codes: E11.65 - Type 2 diabetes mellitus with hyperglycemia SNOMED: 95058935, 423008527 Qualifiers: Qualified Codes: E13.65 - Other specified diabetes mellitus with hyperglycemia (2) Hyperglycemia ICD Codes: R73.9 - Hyperglycemia, unspecified SNOMED: 67431735 (3) Cellulitis of toe of left foot ICD Codes: L03.032 - Cellulitis of left toe SNOMED: 81758166 Status: stable, progressing Assessment/Plan: hold Metformin due to lactic acidosis continue Levemir 24 units daily continue Novolog 8 units ac tid continue Novolog sliding scale ac / hs hypoglycemia protocol in order Subjective Allergies: Coded Allergies: No Known Allergies (Unverified , 10/04/19) All Systems: reviewed and negative except above Subjective events noted glucose values improved Item Value Date Time Bedside Blood Glucose 124 mg/dl H 10/05/19 2100 Bedside Blood Glucose 158 mg/dl H 10/05/19 1649 Bedside Blood Glucose 241 mg/dl H 10/05/19 1207 Bedside Blood Glucose 191 mg/dl H 10/05/19 0844 Bedside Blood Glucose 191 mg/dl H 10/05/19 0617 Objective Last 24 Hour Vital Signs Date Time Temp Pulse Resp B/P (MAP) Pulse Ox O2 Delivery O2 Flow Rate FiO2 10/06/19 00:00 98.1 89 18 136/75 (95) 100 10/05/19 21:00 Room Air 10/05/19 16:00 98.2 82 18 104/60 (75) 98 10/05/19 12:00 97.8 88 20 122/86 (98) 97 10/05/19 09:00 Room Air 10/05/19 08:00 97.6 90 19 118/80 (93) 96 Intake and Output 10/05/19 10/06/19 19:00 07:00 Intake Total 2297.416 ml 1116.666 ml Balance 2297.416 ml 1116.666 ml Intake Oral 1220 ml IV Total 1077.416 ml 1116.666 ml # Voids 6 Laboratory Tests 10/05/19 21:27: POC Whole Blood Glucose 124H 10/06/19 00:18: Vancomycin Level Trough 7.3 10/06/19 04:30: White Blood Count 6.1, Red Blood Count 4.40, Hemoglobin 11.8L, Hematocrit 36.4L , Mean Corpuscular Volume 83, Mean Corpuscular Hemoglobin 26.7L, Mean Corpuscular Hemoglobin Concent 32.3, Red Cell Distribution Width 13.4, Platelet Count 297, Mean Platelet Volume 6.5, Neutrophils (%) (Auto) 49.4, Lymphocytes (% ) (Auto) 40.0, Monocytes (%) (Auto) 9.4, Eosinophils (%) (Auto) 0.5, Basophils ( %) (Auto) 0.7, Sodium Level [Pending], Potassium Level [Pending], Chloride Level [Pending], Carbon Dioxide Level [Pending], Blood Urea Nitrogen [Pending], Creatinine [Pending], Estimat Glomerular Filtration Rate [Pending], Glucose Level [Pending], Calcium Level [Pending] Height (Feet): 5 Height (Inches): 8.00 Weight (Pounds): 178 General Appearance: no apparent distress Neck: normal alignment Cardiovascular: normal rate Respiratory/Chest: lungs clear Abdomen: normal bowel sounds Objective Current Medications Medications (Trade) Dose Ordered Sig/Jerman Route PRN Reason Start Time Stop Time Status Last Admin Dose Admin Ceftriaxone Sodium 1 gm/ Dextrose 55 ml @ 110 mls/hr Q24H IVPB 10/04/19 12:00 10/11/19 11:59 10/05/19 12:03 Dextrose (Dextrose 50%) 25 ml Q30M PRN IV Hypoglycemia 10/05/19 07:15 01/03/20 07:14 Dextrose (Dextrose 50%) 50 ml Q30M PRN IV Hypoglycemia 10/05/19 07:15 01/03/20 07:14 Gadobutrol (Gadavist) 7.5 mmol NOW PRN IV Radiology Procedure 10/04/19 13:30 10/08/19 13:19 Heparin Sodium (Porcine) (Heparin 5000 units/ml) 5,000 units EVERY 12 HOURS SUBQ 10/04/19 09:00 11/18/19 08:59 10/05/19 21:30 Insulin Aspart (NovoLOG) BEFORE MEALS AND HS SUBQ 10/04/19 11:30 01/02/20 11:29 10/05/19 16:48 Insulin Aspart (NovoLOG) 8 units NOVOTIAC SUBQ 10/05/19 11:50 01/03/20 11:49 10/05/19 16:49 Insulin Detemir (Levemir) 24 units DAILY SUBQ 10/04/19 09:00 01/02/20 08:59 10/05/19 08:44 Metronidazole (Flagyl) 500 mg Q8HR ORAL 10/04/19 14:00 10/11/19 13:59 10/05/19 21:23 Morphine Sulfate (Morphine Sulfate) 2 mg Q4H PRN IVP For Pain 10/04/19 06:45 10/11/19 06:44 Sodium Chloride 1,000 ml @ 75 mls/hr [id number] IV 10/04/19 07:44 11/03/19 07:43 10/06/19 00:38 Vancomycin HCl (Vanco pharmacy to dose) 1 ea DAILY PRN MISC Per rx protocol 10/04/19 10:30 11/03/19 10:29 Vancomycin/Sodium Chloride 275 ml @ 183.333 mls/hr Q8H IVPB 10/06/19 02:00 10/11/19 01:59 10/06/19 03:00 Kyle De Jesus MD Oct 06, 2019 06:47
[2019-10-06 08:00] VITALS: BP 126/67
[2019-10-06] MEDS: Heparin 5000 units/ml inj SUBQ SCH ×2 (08:59→20:35)
[2019-10-06] MEDS: Levemir Flexpen SUBQ SCH (09:08)
[2019-10-06 12:00] VITALS: BP 109/67
--- NOTE | 2019-10-06 12:57 | Infectious Diseases Prog Note ---
Assessment/Plan Assessment: L 1st toe cellulitis, and OM 1st distal phalanx -MRI L foot: Findings consistent with osteomyelitis of the first distal phalanx. Dorsal soft tissue edema of the forefoot as well as circumferential edema of the great toe, most likely indicating cellulitis given stated clinical history. No evidence of drainable abscess -L foot xray: NO ACUTE BONY ABNORMALITY. -wound cx S. MSSA -ESR 74, CRP 7.5 -v. duplex no DVT -a. duplex: Negative for evidence of significant peripheral arterial insufficiency on the right. Monophasic but otherwise preserved waveforms on the left at the popliteal artery and distal levels. Suspect on the basis of decreased peripheral resistance due to hyperemia, but mild suprageniculate stenosis also possible. Afebrile No leukocytosis Dm2 Plan: -Switch empiric IV Vancomycin, Flagyl and Ceftriaxone #3 to IV Ancef for MSSA OM --will need 6 weeks of treatment -10/03 SP Clindamycin x1 -f/u cx -Monitor CBC/CMP, temperatures -podiatry f/u -wound care per chiropractic teacher and surgeon Thank you for this consultation. Will continue to follow along with you. Discussed with RN. Subjective Allergies: Coded Allergies: No Known Allergies (Unverified , 10/04/19) afebrile no leukocytosis Bcx NTD Objective Last 24 Hour Vital Signs Date Time Temp Pulse Resp B/P (MAP) Pulse Ox O2 Delivery O2 Flow Rate FiO2 10/06/19 09:00 Room Air 10/06/19 08:00 98.4 82 20 126/67 (86) 97 10/06/19 04:00 98.1 74 16 121/71 (88) 99 10/06/19 00:00 98.1 89 18 136/75 (95) 100 10/05/19 21:00 Room Air 10/05/19 16:00 98.2 82 18 104/60 (75) 98 Height (Feet): 5 Height (Inches): 8.00 Weight (Pounds): 178 General Appearance: no apparent distress, alert Head: normocephalic Eyes: bilateral eye normal inspection, bilateral eye PERRL Respiratory: chest non-tender, lungs clear, normal breath sounds, speaking full sentences Cardiovascular #1: no edema, tachycardia Gastrointestinal: normal bowel sounds, non tender, soft, non-distended, no guarding, no rebound Skin: other - L big toe swelling/erythema/induration Microbiology Date/Time Source Procedure Growth Status 10/04/19 02:00 Blood Blood Culture - Preliminary NO GROWTH AFTER 48 HOURS Resulted 10/04/19 01:45 Blood Blood Culture - Preliminary NO GROWTH AFTER 48 HOURS Resulted 10/05/19 11:00 Nasopharynx SARS-CoV-2 RdRp Gene Assay - Final Complete 10/04/19 03:25 Foot Left Gram Stain - Final Complete 10/04/19 03:25 Wound Culture - Final Staphylococcus Aureus Complete Laboratory Tests Test 10/05/19 21:27 10/06/19 00:18 10/06/19 04:30 10/06/19 06:45 POC Whole Blood Glucose 124 MG/DL (74-106) H 104 MG/DL (74-106) Vancomycin Level Trough 7.3 ug/mL (5.0-12.0) White Blood Count 6.1 K/UL (4.8-10.8) Red Blood Count 4.40 M/UL (4.20-5.40) Hemoglobin 11.8 G/DL (12.0-16.0) L Hematocrit 36.4 % (37.0-47.0) L Mean Corpuscular Volume 83 FL (80-99) Mean Corpuscular Hemoglobin 26.7 PG (27.0-31.0) L Mean Corpuscular Hemoglobin Concent 32.3 G/DL (32.0-36.0) Red Cell Distribution Width 13.4 % (11.6-14.8) Platelet Count 297 K/UL (150-450) Mean Platelet Volume 6.5 FL (6.5-10.1) Neutrophils (%) (Auto) 49.4 % (45.0-75.0) Lymphocytes (%) (Auto) 40.0 % (20.0-45.0) Monocytes (%) (Auto) 9.4 % (1.0-10.0) Eosinophils (%) (Auto) 0.5 % (0.0-3.0) Basophils (%) (Auto) 0.7 % (0.0-2.0) Sodium Level 140 MMOL/L (136-145) Potassium Level 4.6 MMOL/L (3.5-5.1) Chloride Level 104 MMOL/L (98-107) Carbon Dioxide Level 30 MMOL/L (21-32) Anion Gap 6 mmol/L (5-15) Blood Urea Nitrogen 16 mg/dL (7-18) Creatinine 0.9 MG/DL (0.55-1.30) Estimat Glomerular Filtration Rate > 60 mL/min (>60) Glucose Level 73 MG/DL (74-106) #L Calcium Level 10.4 MG/DL (8.5-10.1) H Test 10/06/19 11:02 POC Whole Blood Glucose 276 MG/DL (74-106) H Current Medications Medications (Trade) Dose Ordered Sig/Jerman Route PRN Reason Start Time Stop Time Status Last Admin Dose Admin Ceftriaxone Sodium 1 gm/ Dextrose 55 ml @ 110 mls/hr Q24H IVPB 10/04/19 12:00 10/11/19 11:59 10/05/19 12:03 Dextrose (Dextrose 50%) 25 ml Q30M PRN IV Hypoglycemia 10/05/19 07:15 01/03/20 07:14 Dextrose (Dextrose 50%) 50 ml Q30M PRN IV Hypoglycemia 10/05/19 07:15 01/03/20 07:14 Gadobutrol (Gadavist) 7.5 mmol NOW PRN IV Radiology Procedure 10/04/19 13:30 10/08/19 13:19 Heparin Sodium (Porcine) (Heparin 5000 units/ml) 5,000 units EVERY 12 HOURS SUBQ 10/04/19 09:00 11/18/19 08:59 10/06/19 08:59 Insulin Aspart (NovoLOG) BEFORE MEALS AND HS SUBQ 10/04/19 11:30 01/02/20 11:29 10/05/19 16:48 Insulin Aspart (NovoLOG) 8 units NOVOTIAC SUBQ 10/05/19 11:50 01/03/20 11:49 10/05/19 16:49 Insulin Detemir (Levemir) 24 units DAILY SUBQ 10/04/19 09:00 01/02/20 08:59 10/06/19 09:08 Metronidazole (Flagyl) 500 mg Q8HR ORAL 10/04/19 14:00 10/11/19 13:59 10/06/19 06:46 Morphine Sulfate (Morphine Sulfate) 2 mg Q4H PRN IVP For Pain 10/04/19 06:45 10/11/19 06:44 Sodium Chloride 1,000 ml @ 75 mls/hr [id number] IV 10/04/19 07:44 11/03/19 07:43 10/06/19 00:38 Vancomycin HCl (Vanco pharmacy to dose) 1 ea DAILY PRN MISC Per rx protocol 10/04/19 10:30 11/03/19 10:29 Vancomycin/Sodium Chloride 275 ml @ 183.333 mls/hr Q8H IVPB 10/06/19 02:00 10/11/19 01:59 10/06/19 08:59 Dionne Blake M.D. Oct 06, 2019 12:57
--- NOTE | 2019-10-06 14:19 | Surgery Progress Note ---
Surgery Progress Note Subjective Additional Comments doing well labs okay exam stable states mild drainage from toe intermittently no n/v/f/c Objective Last 24 Hour Vital Signs Date Time Temp Pulse Resp B/P (MAP) Pulse Ox O2 Delivery O2 Flow Rate FiO2 10/06/19 12:00 97.7 69 20 109/67 (81) 98 10/06/19 09:00 Room Air 10/06/19 08:00 98.4 82 20 126/67 (86) 97 10/06/19 04:00 98.1 74 16 121/71 (88) 99 10/06/19 00:00 98.1 89 18 136/75 (95) 100 10/05/19 21:00 Room Air 10/05/19 16:00 98.2 82 18 104/60 (75) 98 I&O Intake and Output 10/05/19 10/06/19 19:00 07:00 Intake Total 2297.416 ml 1116.666 ml Balance 2297.416 ml 1116.666 ml Intake Oral 1220 ml IV Total 1077.416 ml 1116.666 ml # Voids 6 3 Dressing: dry Wound: clean Cardiovascular: RSR Respiratory: clear Abdomen: soft, non-tender, present bowel sounds, non-distended Extremities: edema, no tenderness, no cyanosis Laboratory Tests Test 10/05/19 21:27 10/06/19 00:18 10/06/19 04:30 10/06/19 06:45 POC Whole Blood Glucose 124 MG/DL (74-106) H 104 MG/DL (74-106) Vancomycin Level Trough 7.3 ug/mL (5.0-12.0) White Blood Count 6.1 K/UL (4.8-10.8) Red Blood Count 4.40 M/UL (4.20-5.40) Hemoglobin 11.8 G/DL (12.0-16.0) L Hematocrit 36.4 % (37.0-47.0) L Mean Corpuscular Volume 83 FL (80-99) Mean Corpuscular Hemoglobin 26.7 PG (27.0-31.0) L Mean Corpuscular Hemoglobin Concent 32.3 G/DL (32.0-36.0) Red Cell Distribution Width 13.4 % (11.6-14.8) Platelet Count 297 K/UL (150-450) Mean Platelet Volume 6.5 FL (6.5-10.1) Neutrophils (%) (Auto) 49.4 % (45.0-75.0) Lymphocytes (%) (Auto) 40.0 % (20.0-45.0) Monocytes (%) (Auto) 9.4 % (1.0-10.0) Eosinophils (%) (Auto) 0.5 % (0.0-3.0) Basophils (%) (Auto) 0.7 % (0.0-2.0) Sodium Level 140 MMOL/L (136-145) Potassium Level 4.6 MMOL/L (3.5-5.1) Chloride Level 104 MMOL/L (98-107) Carbon Dioxide Level 30 MMOL/L (21-32) Anion Gap 6 mmol/L (5-15) Blood Urea Nitrogen 16 mg/dL (7-18) Creatinine 0.9 MG/DL (0.55-1.30) Estimat Glomerular Filtration Rate > 60 mL/min (>60) Glucose Level 73 MG/DL (74-106) #L Calcium Level 10.4 MG/DL (8.5-10.1) H Test 10/06/19 11:02 POC Whole Blood Glucose 276 MG/DL (74-106) H Plan Problems: (1) Hyperglycemia (2) Uncontrolled diabetes mellitus (3) Cellulitis of toe of left foot Assessment & Plan: left great toe cellulitis and ulcer MRI noted plan for podiatry eval okay for diet local wound care will follow with recaidee tucker thank you There is markedly increased STIR signal and decreased T1 signal within the first distal phalanx. No other marrow signal abnormality is demonstrated. There is edema of the subcutaneous fat of the dorsum of the foot. There is circumferential edema of the soft tissues of the great toe. No discrete fluid collection to suggest drainable abscess demonstrated. Impression: Findings consistent with osteomyelitis of the first distal phalanx Dorsal soft tissue edema of the forefoot as well as circumferential edema of the great toe, most likely indicating cellulitis given stated clinical history. No evidence of drainable abscess Negative for evidence of significant peripheral arterial insufficiency on the right Monophasic but otherwise preserved waveforms on the left at the popliteal artery and distal levels. Suspect on the basis of decreased peripheral resistance due to hyperemia, but mild suprageniculate stenosis also possible. Benyamini,[place] Oct 06, 2019 14:19
[2019-10-06] MEDS: ceFAZolin 2gm/50ml Premix 50 ML IV SCH ×2 (15:40→21:07)
[2019-10-06 16:00] VITALS: BP 125/73
--- NOTE | 2019-10-06 17:12 | Diagnostic Imaging Report ---
INDICATION: Reason For Exam: BLD TECHNIQUE: IV administration nonionic contrast. Arterial phase spiral acquisitions obtained through the abdomen, pelvis, and bilateral lower extremities. Multiplanar and 3-D reconstructions were generated. Total dose length product mGycm. CTDIvol(s) mGy. Radiation dose was minimized using automated exposure control COMPARISON: Bilateral numbness in feet, cramping in legs, bilateral leg pain FINDINGS Abdominal aorta: There is minimal calcified atherosclerotic plaquing of the abdominal aorta. No significant aortic stenosis, aneurysm, or dissection. The celiac axis, superior mesenteric artery, and proximal branch vessels are patent and nonstenotic. Patent nonstenotic bilateral renal arteries. Patent inferior mesenteric artery. Right lower extremity: Patent and nonstenotic right common, external, and internal iliac arteries. Patent and nonstenotic right common femoral, profunda femoral, superficial femoral arteries. There is calcified atherosclerotic plaquing but no significant stenosis of the popliteal artery. The anterior tibial artery is patent, nonstenotic, reaches the ankle and forms a dorsalis pedis artery. The tibioperoneal trunk demonstrates calcified plaquing but no significant stenosis. It is patent and nonstenotic. The posterior tibial artery is patent, nonstenotic, reaches the ankle. The terminal plantar branch of the posterior tibial artery demonstrates a possibly significant stenosis as it passes the calcaneus, and appears to occlude distally. The peroneal artery occludes shortly beyond its origin and remains occluded over its length Left lower extremity: Patent and nonstenotic common, external, and internal iliac arteries. Patent and nonstenotic common femoral, is profunda femoral, superficial femoral arteries. There is focal stenosis, likely 50% or greater, of the mid popliteal artery at about the level of the knee joint. The anterior tibial artery demonstrates atherosclerotic calcification but no definite focal stenosis. The tibioperoneal trunk and posterior tibial arteries are patent, nonstenotic, the latter reaching well beyond the ankle. The peroneal artery is highly stenotic at its origin, occludes shortly beyond the origin, does not reconstitute. Nonvascular: The included lung bases demonstrate slight mosaic perfusion. The visualized portions of the liver are unremarkable. Unusual densities are seen around the gallbladder fossa. There is a fluid structure that appears to be the gallbladder, although this could represent a small postoperative biloma if there is been prior cholecystectomy. The bile ducts are nondilated. The pancreas, spleen, adrenals, kidneys are unremarkable. No retroperitoneal or mesenteric mass or adenopathy. No pelvic mass or adenopathy. The uterus and ovaries are unremarkable. The bladder is unremarkable. Considerable stool is seen throughout the colon. No small bowel distention. No free or loculated intraperitoneal gas or fluid is evident. The appendix is normal. No small bowel distention. There are degenerative changes of the lumbar spine. IMPRESSION: Stenosis, likely significant, of the mid left popliteal artery. This would likely be amenable to angioplasty Occlusion of the left peroneal artery. No other evidence of left lower extremity peripheral arterial insufficiency Occluded right peroneal artery. Probably occluded terminal branch of the right posterior tibial artery below the ankle. No other evidence of significant right lower extremity arterial insufficiency Somewhat unusual appearance to the gallbladder fossa, may reflect calcifications in or around the gallbladder wall, versus prior cholecystectomy and biloma. Correlate with surgical history The CT scanner at [facility] is accredited by the [employer] and the scans are performed using protocols designed to limit radiation exposure to as low as reasonably achievable to attain images of sufficient resolution adequate for diagnostic evaluation.
[2019-10-06 20:00] VITALS: BP 89/55
[2019-10-07] VITALS: BP 118/73
[2019-10-07 04:00] VITALS: BP 118/71
[2019-10-07] MEDS: ceFAZolin 2gm/50ml Premix 50 ML IV SCH ×3 (05:33→21:49)
[2019-10-07] MEDS: metroNIDAZOLE 500mg tab ORAL SCH ×3 (05:33→22:02)
[2019-10-07] MEDS: NovoLOG Insulin Flexpen SUBQ SCH ×7 (05:33→22:14)
[2019-10-07 08:00] VITALS: BP 121/70
[2019-10-07] MEDS: Heparin 5000 units/ml inj SUBQ SCH ×2 (09:23→22:06)
[2019-10-07] MEDS: Levemir Flexpen SUBQ SCH (09:28)
--- NOTE | 2019-10-07 09:44 | Anethesia Preoperative Eval ---
Anesthesia Pre-op PMH/ROS General Date of Evaluation: Oct 07, 2019 Time of Evaluation: 10:13 Anesthesiologist: Trent ASA Score: ASA 3 Mallampati Score Class I : Soft palate, uvula, fauces, pillars visible Class II: Soft palate, uvula, fauces visible Class III: Soft palate, base of uvula visible Class IV: Only hard plate visible Mallampati Classification: Class II Surgeon: Marifer Diagnosis: L Hallux Cellulitis Surgical Procedure: L Hallux Amputation Anesthesia History: none Family History: no anesthesia problems Allergies: Coded Allergies: No Known Allergies (Unverified , 10/04/19) Medications: see eMAR Patient NPO?: Yes Past Medical History Endocrine: Reports: DM Anesthesia Pre-op Phys. Exam Physician Exam Last Vital Signs Date Time Temp Pulse Resp B/P (MAP) Pulse Ox O2 Delivery O2 Flow Rate FiO2 10/07/19 04:00 97.9 80 18 118/71 (87) 98 10/06/19 21:00 Room Air Constitutional: NAD Neurologic: CN 2-12 intact Cardiovascular: RRR Respiratory: CTA Gastrointestinal: S/NT/ND Airway Exam Mallampati Score: Class II MO: full ROM: full Teeth: missing, intact Anesthesia Pre-op A/P Labs Labs Test 10/04/19 22:04 10/05/19 05:18 10/05/19 05:20 10/05/19 21:27 POC Whole Blood Glucose 191 MG/DL (74-106) 124 MG/DL (74-106) White Blood Count 7.2 K/UL (4.8-10.8) Red Blood Count 4.26 M/UL (4.20-5.40) Hemoglobin 11.5 G/DL (12.0-16.0) Hematocrit 35.1 % (37.0-47.0) Mean Corpuscular Volume 82 FL (80-99) Mean Corpuscular Hemoglobin 26.9 PG (27.0-31.0) Mean Corpuscular Hemoglobin Concent 32.7 G/DL (32.0-36.0) Red Cell Distribution Width 12.9 % (11.6-14.8) Platelet Count 267 K/UL (150-450) Mean Platelet Volume 7.6 FL (6.5-10.1) Neutrophils (%) (Auto) 52.9 % (45.0-75.0) Lymphocytes (%) (Auto) 36.8 % (20.0-45.0) Monocytes (%) (Auto) 8.7 % (1.0-10.0) Eosinophils (%) (Auto) 0.5 % (0.0-3.0) Basophils (%) (Auto) 1.0 % (0.0-2.0) Erythrocyte Sedimentation Rate 74 MM/HR (0-30) Sodium Level 137 MMOL/L (136-145) Potassium Level 3.9 MMOL/L (3.5-5.1) Chloride Level 102 MMOL/L (98-107) Carbon Dioxide Level 29 MMOL/L (21-32) Anion Gap 6 mmol/L (5-15) Blood Urea Nitrogen 12 mg/dL (7-18) Creatinine 0.7 MG/DL (0.55-1.30) Estimat Glomerular Filtration Rate > 60 mL/min (>60) Glucose Level 185 MG/DL (74-106) Lactic Acid Level 0.80 mmol/L (0.4-2.0) Calcium Level 9.4 MG/DL (8.5-10.1) C-Reactive Protein, Quantitative 7.5 mg/dL (0.00-0.90) Test 10/06/19 00:18 10/06/19 04:30 10/06/19 06:45 10/06/19 11:02 Vancomycin Level Trough 7.3 ug/mL (5.0-12.0) White Blood Count 6.1 K/UL (4.8-10.8) Red Blood Count 4.40 M/UL (4.20-5.40) Hemoglobin 11.8 G/DL (12.0-16.0) Hematocrit 36.4 % (37.0-47.0) Mean Corpuscular Volume 83 FL (80-99) Mean Corpuscular Hemoglobin 26.7 PG (27.0-31.0) Mean Corpuscular Hemoglobin Concent 32.3 G/DL (32.0-36.0) Red Cell Distribution Width 13.4 % (11.6-14.8) Platelet Count 297 K/UL (150-450) Mean Platelet Volume 6.5 FL (6.5-10.1) Neutrophils (%) (Auto) 49.4 % (45.0-75.0) Lymphocytes (%) (Auto) 40.0 % (20.0-45.0) Monocytes (%) (Auto) 9.4 % (1.0-10.0) Eosinophils (%) (Auto) 0.5 % (0.0-3.0) Basophils (%) (Auto) 0.7 % (0.0-2.0) Sodium Level 140 MMOL/L (136-145) Potassium Level 4.6 MMOL/L (3.5-5.1) Chloride Level 104 MMOL/L (98-107) Carbon Dioxide Level 30 MMOL/L (21-32) Anion Gap 6 mmol/L (5-15) Blood Urea Nitrogen 16 mg/dL (7-18) Creatinine 0.9 MG/DL (0.55-1.30) Estimat Glomerular Filtration Rate > 60 mL/min (>60) Glucose Level 73 MG/DL (74-106) Calcium Level 10.4 MG/DL (8.5-10.1) POC Whole Blood Glucose 104 MG/DL (74-106) 276 MG/DL (74-106) Test 10/06/19 17:47 10/06/19 20:26 POC Whole Blood Glucose 214 MG/DL (74-106) 194 MG/DL (74-106) Chemistry Test 10/06/19 11:02 10/06/19 17:47 10/06/19 20:26 POC Whole Blood Glucose 276 MG/DL (74-106) H 214 MG/DL (74-106) H 194 MG/DL (74-106) H Risk Assessment & Plan Assessment: ASA 3 Plan: GA Status Change Before Surgery: No Pre-Antibiotics Drug: Alexis Thurman MD Oct 07, 2019 09:44
[2019-10-07 12:00] VITALS: BP 115/70
--- NOTE | 2019-10-07 12:13 | General Progress Note ---
Assessment/Plan Status: stable, progressing Assessment/Plan: (1) Hyperglycemia ICD Codes: R73.9 - Hyperglycemia, unspecified SNOMED: 82058965 (2) Uncontrolled diabetes mellitus ICD Codes: E11.65 - Type 2 diabetes mellitus with hyperglycemia SNOMED: 28108762, 603119847 Qualifiers: Qualified Codes: E13.65 - Other specified diabetes mellitus with hyperglycemia (3) Cellulitis of toe of left foot ICD Codes: L03.032 - Cellulitis of left toe SNOMED: 58336984 Status: stable, progressing Subjective HEENT: Denies: no symptoms, eye pain, blurred vision, tearing, double vision, ear pain, ear discharge, nose pain, nose congestion, throat pain, throat swelling, mouth pain, mouth swelling, other Cardiovascular: Denies: no symptoms, chest pain, edema, irregular heart rate, lightheadedness, palpitations, syncope, other Respiratory: Denies: no symptoms, cough, orthopnea, shortness of breath, SOB with excertion, SOB at rest, sputum, stridor, wheezing, other Gastrointestinal/Abdominal: Denies: no symptoms, abdomen distended, abdominal pain, black stools, tarry stools, blood in stool, constipated, diarrhea, difficulty swallowing, nausea, poor appetite, poor fluid intake, rectal bleeding , vomiting, other Genitourinary: Denies: no symptoms, burning, discharge, frequency, flank pain, hematuria, incontinence, pain, urgency, other Neurologic/Psychiatric: Denies: no symptoms, anxiety, depressed, emotional problems, headache, numbness, paresthesia, pre-existing deficit, seizure, tingling, tremors, weakness, other Endocrine: Denies: no symptoms, excessive sweating, flushing, intolerance to cold, intolerance to heat, increased hunger, increased thirst, increased urine, unexplained weight gain, unexplained weight loss, other Allergies: Coded Allergies: No Known Allergies (Unverified , 10/04/19) Subjective 10/05 meds noted, covering for Bark[place], no bleeding, cbc and bmp 10/06 labs noted, no bleeding, left hallux drainage from toe Objective Last 24 Hour Vital Signs Date Time Temp Pulse Resp B/P (MAP) Pulse Ox O2 Delivery O2 Flow Rate FiO2 10/07/19 09:00 Room Air 10/07/19 08:00 97.9 99 20 121/70 (87) 99 10/07/19 04:00 97.9 80 18 118/71 (87) 98 10/07/19 00:00 97.9 73 18 118/73 (88) 98 10/06/19 21:00 Room Air 10/06/19 20:00 98.1 86 22 89/55 (66) 99 10/06/19 16:00 97.8 78 20 125/73 (90) 98 Intake and Output 10/06/19 10/07/19 19:00 07:00 Intake Total 1925 ml 1059 ml Balance 1925 ml 1059 ml Intake Oral 1200 ml IV Total 725 ml 699 ml Other 360 ml # Voids 3 2 Laboratory Tests 10/06/19 17:47: POC Whole Blood Glucose 214H 10/06/19 20:26: POC Whole Blood Glucose 194H 10/07/19 11:57: POC Whole Blood Glucose 177H Height (Feet): 5 Height (Inches): 8.00 Weight (Pounds): 178 Objective Dressing: dry Wound: clean Cardiovascular: RSR Respiratory: clear Abdomen: soft, non-tender, present bowel sounds Extremities: no edema, no tenderness, pulses, other Leoncio Campos MD Oct 07, 2019 12:13
--- NOTE | 2019-10-07 12:27 | Surgery Progress Note ---
Surgery Progress Note Subjective Additional Comments CTA noted resting comfortable labs okay afebrile Objective Last 24 Hour Vital Signs Date Time Temp Pulse Resp B/P (MAP) Pulse Ox O2 Delivery O2 Flow Rate FiO2 10/07/19 09:00 Room Air 10/07/19 08:00 97.9 99 20 121/70 (87) 99 10/07/19 04:00 97.9 80 18 118/71 (87) 98 10/07/19 00:00 97.9 73 18 118/73 (88) 98 10/06/19 21:00 Room Air 10/06/19 20:00 98.1 86 22 89/55 (66) 99 10/06/19 16:00 97.8 78 20 125/73 (90) 98 I&O Intake and Output 10/06/19 10/07/19 19:00 07:00 Intake Total 1925 ml 1059 ml Balance 1925 ml 1059 ml Intake Oral 1200 ml IV Total 725 ml 699 ml Other 360 ml # Voids 3 2 Dressing: dry Cardiovascular: RSR Respiratory: clear Abdomen: soft, non-tender, present bowel sounds Extremities: edema, no tenderness, no cyanosis, pulses, other Laboratory Tests Test 10/06/19 17:47 10/06/19 20:26 10/07/19 11:57 POC Whole Blood Glucose 214 MG/DL (74-106) H 194 MG/DL (74-106) H 177 MG/DL (74-106) H Plan Problems: (1) Hyperglycemia (2) Uncontrolled diabetes mellitus (3) Cellulitis of toe of left foot Assessment & Plan: left great toe cellulitis and ulcer MRI noted plan for podiatry evlandon isaac for diet local wound care will follow with maria antonia tucker thank you There is markedly increased STIR signal and decreased T1 signal within the first distal phalanx. No other marrow signal abnormality is demonstrated. There is edema of the subcutaneous fat of the dorsum of the foot. There is circumferential edema of the soft tissues of the great toe. No discrete fluid collection to suggest drainable abscess demonstrated. Impression: Findings consistent with osteomyelitis of the first distal phalanx Dorsal soft tissue edema of the forefoot as well as circumferential edema of the great toe, most likely indicating cellulitis given stated clinical history. No evidence of drainable abscess Negative for evidence of significant peripheral arterial insufficiency on the right Monophasic but otherwise preserved waveforms on the left at the popliteal artery and distal levels. Suspect on the basis of decreased peripheral resistance due to hyperemia, but mild suprageniculate stenosis also possible. Abdominal aorta: There is minimal calcified atherosclerotic plaquing of the abdominal aorta. No significant aortic stenosis, aneurysm, or dissection. The celiac axis, superior mesenteric artery, and proximal branch vessels are patent and nonstenotic. Patent nonstenotic bilateral renal arteries. Patent inferior mesenteric artery. Right lower extremity: Patent and nonstenotic right common, external, and internal iliac arteries. Patent and nonstenotic right common femoral, profunda femoral, superficial femoral arteries. There is calcified atherosclerotic plaquing but no significant stenosis of the popliteal artery. The anterior tibial artery is patent, nonstenotic, reaches the ankle and forms a dorsalis pedis artery. The tibioperoneal trunk demonstrates calcified plaquing but no significant stenosis. It is patent and nonstenotic. The posterior tibial artery is patent, nonstenotic, reaches the ankle. The terminal plantar branch of the posterior tibial artery demonstrates a possibly significant stenosis as it passes the calcaneus, and appears to occlude distally. The peroneal artery occludes shortly beyond its origin and remains occluded over its length Left lower extremity: Patent and nonstenotic common, external, and internal iliac arteries. Patent and nonstenotic common femoral, is profunda femoral, superficial femoral arteries. There is focal stenosis, likely 50% or greater, of the mid popliteal artery at about the level of the knee joint. The anterior tibial artery demonstrates atherosclerotic calcification but no definite focal stenosis. The tibioperoneal trunk and posterior tibial arteries are patent, nonstenotic, the latter reaching well beyond the ankle. The peroneal artery is highly stenotic at its origin, occludes shortly beyond the origin, does not reconstitute. Nonvascular: The included lung bases demonstrate slight mosaic perfusion. The visualized portions of the liver are unremarkable. Unusual densities are seen around the gallbladder fossa. There is a fluid structure that appears to be the gallbladder, although this could represent a small postoperative biloma if there is been prior cholecystectomy. The bile ducts are nondilated. The pancreas, spleen, adrenals, kidneys are unremarkable. No retroperitoneal or mesenteric mass or adenopathy. No pelvic mass or adenopathy. The uterus and ovaries are unremarkable. The bladder is unremarkable. Considerable stool is seen throughout the colon. No small bowel distention. No free or loculated intraperitoneal gas or fluid is evident. The appendix is normal. No small bowel distention. There are degenerative changes of the lumbar spine. IMPRESSION: Stenosis, likely significant, of the mid left popliteal artery. This would likely be amenable to angioplasty Occlusion of the left peroneal artery. No other evidence of left lower extremity peripheral arterial insufficiency Occluded right peroneal artery. Probably occluded terminal branch of the right posterior tibial artery below the ankle. No other evidence of significant right lower extremity arterial insufficiency Somewhat unusual appearance to the gallbladder fossa, may reflect calcifications in or around the gallbladder wall, versus prior cholecystectomy and biloma. Correlate with surgical history [place] Copeland Oct 07, 2019 12:27
[2019-10-07] MEDS ORDERED: Lidocaine 1% Plain 30 ml INJ PRN (14:00)
[2019-10-07] MEDS ORDERED: Heparin1,000 units/500ml Premix(Conc:2 units/ml) IV PRN (14:00)
[2019-10-07 16:00] VITALS: BP 113/69
--- NOTE | 2019-10-07 17:19 | Podiatric Progress Note ---
Assessment/Plan Patient Isabela Sagastume is a 59 year old female who was admitted on Oct 04, 2019 at 02:20 with Assessment/Plan Assessment/Plan: A: - L foot Cellulitis with hallux ulceration. - DM P: - lab and chart reviewed. - MRI LLE positive for OM distal hallux. - CTA note stenosis of arteries. - Vasc rec outpt Angio. - Will proceed with possible surgical intervention post angio. - Rec outpt IV ABx per ID. - Rec daily local wound care Daily betadine dressing. - Pt stable for hospital D/C from podiatry perspective if other specialists agree. Subjective Reason for consult L hallux OM. Allergies: Coded Allergies: No Known Allergies (Unverified , 10/04/19) Subjective - Brief Podiatry Progress Note. Objective Exam Last 24 Hour Vital Signs Date Time Temp Pulse Resp B/P (MAP) Pulse Ox O2 Delivery O2 Flow Rate FiO2 10/07/19 12:00 98.2 79 16 115/70 (85) 98 10/07/19 09:00 Room Air 10/07/19 08:00 97.9 99 20 121/70 (87) 99 10/07/19 04:00 97.9 80 18 118/71 (87) 98 10/07/19 00:00 97.9 73 18 118/73 (88) 98 10/06/19 21:00 Room Air 10/06/19 20:00 98.1 86 22 89/55 (66) 99 Laboratory Tests Test 10/06/19 17:47 10/06/19 20:26 10/07/19 11:57 POC Whole Blood Glucose 214 MG/DL (74-106) H 194 MG/DL (74-106) H 177 MG/DL (74-106) H Microbiology Date/Time Source Procedure Growth Status 10/04/19 02:00 Blood Blood Culture - Preliminary NO GROWTH AFTER 48 HOURS Resulted 10/05/19 11:00 Nasopharynx SARS-CoV-2 RdRp Gene Assay - Final Complete 10/04/19 03:25 Foot Left Gram Stain - Final Complete 10/04/19 03:25 Wound Culture - Final Staphylococcus Aureus Complete Exam Narrative Focused LLE Exam Derm: L foot edema and erythema noted. (+) purulent drainage noted to L hallux distal tip. Vasc: 1/4 DP/PT pulses. [employer] < seconds. Neuro: SILT diminished. MSK: MS/ROM WNL. David Caicedo DPM Oct 07, 2019 17:19
--- NOTE | 2019-10-07 19:08 | Infectious Diseases Prog Note ---
Assessment/Plan Assessment: L 1st toe cellulitis, and OM 1st distal phalanx -MRI L foot: Findings consistent with osteomyelitis of the first distal phalanx. Dorsal soft tissue edema of the forefoot as well as circumferential edema of the great toe, most likely indicating cellulitis given stated clinical history. No evidence of drainable abscess -L foot xray: NO ACUTE BONY ABNORMALITY. -wound cx S. MSSA -ESR 74, CRP 7.5 -v. duplex no DVT -a. duplex: Negative for evidence of significant peripheral arterial insufficiency on the right. Monophasic but otherwise preserved waveforms on the left at the popliteal artery and distal levels. Suspect on the basis of decreased peripheral resistance due to hyperemia, but mild suprageniculate stenosis also possible. Afebrile No leukocytosis Dm2 Plan: - IV Ancef # for MSSA OM, add Flagyl # /- ( Anearobic coverage) Flagyl can be switched to oral AB Rx upon DC --will need 6 weeks of treatment -10/05 Sp c IV Vancomycin, Flagyl and Ceftriaxone #3 -10/03 SP Clindamycin x1 -f/u cx -Monitor CBC/CMP, temperatures -podiatry f/u -wound care per toll collector and surgeon JENIFER RN PICC before DC Thank you for this consultation. Will continue to follow along with you. Discussed with RN. Subjective Allergies: Coded Allergies: No Known Allergies (Unverified , 10/04/19) afebrile Objective Last 24 Hour Vital Signs Date Time Temp Pulse Resp B/P (MAP) Pulse Ox O2 Delivery O2 Flow Rate FiO2 10/07/19 16:00 98.1 74 16 113/69 (84) 99 10/07/19 12:00 98.2 79 16 115/70 (85) 98 10/07/19 09:00 Room Air 10/07/19 08:00 97.9 99 20 121/70 (87) 99 10/07/19 04:00 97.9 80 18 118/71 (87) 98 10/07/19 00:00 97.9 73 18 118/73 (88) 98 10/06/19 21:00 Room Air 10/06/19 20:00 98.1 86 22 89/55 (66) 99 Height (Feet): 5 Height (Inches): 8.00 Weight (Pounds): 178 General Appearance: no acute distress HEENT: anicteric Respiratory/Chest: lungs clear Cardiovascular: regular rhythm Microbiology Date/Time Source Procedure Growth Status 10/07/19 16:50 Nasopharynx SARS-CoV-2 RdRp Gene Assay - Final Complete 10/05/19 11:00 Nasopharynx SARS-CoV-2 RdRp Gene Assay - Final Complete Laboratory Tests Test 10/06/19 20:26 10/07/19 11:57 POC Whole Blood Glucose 194 MG/DL (74-106) H 177 MG/DL (74-106) H Current Medications Medications (Trade) Dose Ordered Sig/Jerman Route PRN Reason Start Time Stop Time Status Last Admin Dose Admin Cefazolin Sodium 50 ml @ 100 mls/hr Q8HR IV 10/06/19 14:00 10/13/19 13:59 10/07/19 13:15 Chlorhexidine Gluconate (Kelli-Hex 2%) 1 applic DAILY@2000 TOPIC 10/07/19 20:00 01/05/20 19:59 Dextrose (Dextrose 50%) 25 ml Q30M PRN IV Hypoglycemia 10/05/19 07:15 01/03/20 07:14 Dextrose (Dextrose 50%) 50 ml Q30M PRN IV Hypoglycemia 10/05/19 07:15 01/03/20 07:14 Gadobutrol (Gadavist) 7.5 mmol NOW PRN IV Radiology Procedure 10/04/19 13:30 10/08/19 13:19 Heparin Sodium (Porcine) (Heparin 5000 units/ml) 5,000 units EVERY 12 HOURS SUBQ 10/04/19 09:00 11/18/19 08:59 10/07/19 09:23 Heparin Sodium/ Sodium Chloride (Heparin 1000 units/500ml Premix) 1,000 unit ONCE PRN IV PICC LINE PLACEMENT 10/07/19 14:00 10/09/19 23:59 Insulin Aspart (NovoLOG) BEFORE MEALS AND HS SUBQ 10/04/19 11:30 01/02/20 11:29 10/07/19 17:45 Insulin Aspart (NovoLOG) 8 units NOVOTIAC SUBQ 10/05/19 11:50 01/03/20 11:49 10/07/19 17:44 Insulin Detemir (Levemir) 24 units DAILY SUBQ 10/04/19 09:00 01/02/20 08:59 10/07/19 09:28 Lidocaine HCl (Xylocaine 1% 30ml) 30 ml ONCE PRN INJ PICC LINE PLACEMENT 10/07/19 14:00 10/09/19 23:59 Metronidazole (Flagyl) 500 mg Q8HR ORAL 10/04/19 14:00 10/11/19 13:59 10/07/19 13:14 Morphine Sulfate (Morphine Sulfate) 2 mg Q4H PRN IVP For Pain 10/04/19 06:45 10/11/19 06:44 Sodium Chloride 1,000 ml @ 75 mls/hr [id number] IV 10/04/19 07:44 11/03/19 07:43 10/07/19 14:56 Laz Lazaro MD Oct 07, 2019 19:07
[2019-10-07 20:00] VITALS: BP_SYST 114; BP_SYST 124; BP_DIAS 70; BP_DIAS 81
[2019-10-07] MEDS: Dyna-Hex 2% Top Sol 2oz TOPIC SCH (20:00)
--- NOTE | 2019-10-07 23:16 | General Progress Note ---
Progress Note Progress Note Patient seen and examined earlier Left toe osteomyelitis IDDM Non smoker Calcific PAD 2+ femorals absent left pop pedal pulses Weakly palpable right popliteal and Dp pulse Duplex and CT angio films reviewed Rec Abx per ID Daily antiplatelet & statin therapy Will need selective left leg angiogram to eval for revascularization Left toe amp if needed per podiatry after above d/w pt at length and nurse at bedside Moncho Bueno MD Oct 07, 2019 23:16
[2019-10-08] VITALS: BP_SYST 132; BP_SYST 151; BP_DIAS 76; BP_DIAS 95
[2019-10-08 04:00] VITALS: BP 114/67
[2019-10-08] MEDS: ceFAZolin 2gm/50ml Premix 50 ML IV SCH ×3 (06:00→21:20)
[2019-10-08] MEDS: metroNIDAZOLE 500mg tab ORAL SCH ×3 (07:04→21:21)
[2019-10-08] MEDS: NovoLOG Insulin Flexpen SUBQ SCH ×7 (07:05→21:00)
[2019-10-08] MEDS: Heparin 5000 units/ml inj SUBQ SCH ×2 (08:56→20:34)
[2019-10-08 09:00] VITALS: BP 108/69
[2019-10-08] MEDS: Levemir Flexpen SUBQ SCH ×2 (09:00→21:34)
[2019-10-08 12:00] VITALS: BP 120/72
[2019-10-08] MEDS: Aspirin Baby 81mg ORAL SCH (12:03)
--- NOTE | 2019-10-08 12:17 | Surgery Progress Note ---
Surgery Progress Note Subjective Additional Comments podiatry / vascular input appreciated plan outpt angio surgical intervention after cont abx and local wound care Objective Last 24 Hour Vital Signs Date Time Temp Pulse Resp B/P (MAP) Pulse Ox O2 Delivery O2 Flow Rate FiO2 10/08/19 09:00 Room Air 10/08/19 09:00 97.9 83 18 108/69 (82) 98 10/08/19 04:00 98.2 79 20 114/67 (83) 99 10/08/19 00:00 98.6 69 18 132/76 (94) 99 10/07/19 20:56 Room Air 10/07/19 20:00 97.8 85 18 114/70 (85) 100 10/07/19 16:00 98.1 74 16 113/69 (84) 99 I&O Intake and Output 10/07/19 10/08/19 19:00 07:00 Intake Total 895 ml 1266 ml Balance 895 ml 1266 ml Intake Oral 820 ml 480 ml IV Total 75 ml 786 ml # Voids 3 2 Dressing: dry Wound: clean Cardiovascular: RSR Respiratory: clear Abdomen: soft, non-tender, present bowel sounds Extremities: edema, no tenderness, no cyanosis, pulses, other Laboratory Tests Test 10/08/19 05:58 POC Whole Blood Glucose Pending Plan Problems: (1) Hyperglycemia (2) Uncontrolled diabetes mellitus (3) Cellulitis of toe of left foot Assessment & Plan: left great toe cellulitis and ulcer MRI noted plan for podiatry eval okay for diet local wound care will follow with maria antonia tucker thank you podiatry / vascular input appreciated plan outpt angio surgical intervention after cont abx and local wound care There is markedly increased STIR signal and decreased T1 signal within the first distal phalanx. No other marrow signal abnormality is demonstrated. There is edema of the subcutaneous fat of the dorsum of the foot. There is circumferential edema of the soft tissues of the great toe. No discrete fluid collection to suggest drainable abscess demonstrated. Impression: Findings consistent with osteomyelitis of the first distal phalanx Dorsal soft tissue edema of the forefoot as well as circumferential edema of the great toe, most likely indicating cellulitis given stated clinical history. No evidence of drainable abscess Negative for evidence of significant peripheral arterial insufficiency on the right Monophasic but otherwise preserved waveforms on the left at the popliteal artery and distal levels. Suspect on the basis of decreased peripheral resistance due to hyperemia, but mild suprageniculate stenosis also possible. Abdominal aorta: There is minimal calcified atherosclerotic plaquing of the abdominal aorta. No significant aortic stenosis, aneurysm, or dissection. The celiac axis, superior mesenteric artery, and proximal branch vessels are patent and nonstenotic. Patent nonstenotic bilateral renal arteries. Patent inferior mesenteric artery. Right lower extremity: Patent and nonstenotic right common, external, and internal iliac arteries. Patent and nonstenotic right common femoral, profunda femoral, superficial femoral arteries. There is calcified atherosclerotic plaquing but no significant stenosis of the popliteal artery. The anterior tibial artery is patent, nonstenotic, reaches the ankle and forms a dorsalis pedis artery. The tibioperoneal trunk demonstrates calcified plaquing but no significant stenosis. It is patent and nonstenotic. The posterior tibial artery is patent, nonstenotic, reaches the ankle. The terminal plantar branch of the posterior tibial artery demonstrates a possibly significant stenosis as it passes the calcaneus, and appears to occlude distally. The peroneal artery occludes shortly beyond its origin and remains occluded over its length Left lower extremity: Patent and nonstenotic common, external, and internal iliac arteries. Patent and nonstenotic common femoral, is profunda femoral, superficial femoral arteries. There is focal stenosis, likely 50% or greater, of the mid popliteal artery at about the level of the knee joint. The anterior tibial artery demonstrates atherosclerotic calcification but no definite focal stenosis. The tibioperoneal trunk and posterior tibial arteries are patent, nonstenotic, the latter reaching well beyond the ankle. The peroneal artery is highly stenotic at its origin, occludes shortly beyond the origin, does not reconstitute. Nonvascular: The included lung bases demonstrate slight mosaic perfusion. The visualized portions of the liver are unremarkable. Unusual densities are seen around the gallbladder fossa. There is a fluid structure that appears to be the gallbladder, although this could represent a small postoperative biloma if there is been prior cholecystectomy. The bile ducts are nondilated. The pancreas, spleen, adrenals, kidneys are unremarkable. No retroperitoneal or mesenteric mass or adenopathy. No pelvic mass or adenopathy. The uterus and ovaries are unremarkable. The bladder is unremarkable. Considerable stool is seen throughout the colon. No small bowel distention. No free or loculated intraperitoneal gas or fluid is evident. The appendix is normal. No small bowel distention. There are degenerative changes of the lumbar spine. IMPRESSION: Stenosis, likely significant, of the mid left popliteal artery. This would likely be amenable to angioplasty Occlusion of the left peroneal artery. No other evidence of left lower extremity peripheral arterial insufficiency Occluded right peroneal artery. Probably occluded terminal branch of the right posterior tibial artery below the ankle. No other evidence of significant right lower extremity arterial insufficiency Somewhat unusual appearance to the gallbladder fossa, may reflect calcifications in or around the gallbladder wall, versus prior cholecystectomy and biloma. Correlate with surgical history [place] Copeland Oct 08, 2019 12:17
--- NOTE | 2019-10-08 12:53 | General Progress Note ---
Assessment/Plan Status: stable, progressing Assessment/Plan: (1) Hyperglycemia ICD Codes: R73.9 - Hyperglycemia, unspecified SNOMED: 02561543 (2) Uncontrolled diabetes mellitus ICD Codes: E11.65 - Type 2 diabetes mellitus with hyperglycemia SNOMED: 24864936, 583482865 Qualifiers: Qualified Codes: E13.65 - Other specified diabetes mellitus with hyperglycemia (3) Cellulitis of toe of left foot ICD Codes: L03.032 - Cellulitis of left toe SNOMED: 47851256 Status: stable, progressing Subjective HEENT: Denies: no symptoms, eye pain, blurred vision, tearing, double vision, ear pain, ear discharge, nose pain, nose congestion, throat pain, throat swelling, mouth pain, mouth swelling, other Cardiovascular: Denies: no symptoms, chest pain, edema, irregular heart rate, lightheadedness, palpitations, syncope, other Respiratory: Denies: no symptoms, cough, orthopnea, shortness of breath, SOB with excertion, SOB at rest, sputum, stridor, wheezing, other Gastrointestinal/Abdominal: Denies: no symptoms, abdomen distended, abdominal pain, black stools, tarry stools, blood in stool, constipated, diarrhea, difficulty swallowing, nausea, poor appetite, poor fluid intake, rectal bleeding , vomiting, other Genitourinary: Denies: no symptoms, burning, discharge, frequency, flank pain, hematuria, incontinence, pain, urgency, other Neurologic/Psychiatric: Denies: no symptoms, anxiety, depressed, emotional problems, headache, numbness, paresthesia, pre-existing deficit, seizure, tingling, tremors, weakness, other Endocrine: Denies: no symptoms, excessive sweating, flushing, intolerance to cold, intolerance to heat, increased hunger, increased thirst, increased urine, unexplained weight gain, unexplained weight loss, other Allergies: Coded Allergies: No Known Allergies (Unverified , 10/04/19) Subjective 10/05 meds noted, covering for Barkley, no bleeding, cbc and bmp 10/06 labs noted, no bleeding, left hallux drainage from toe 10/07 with left toe osteo, further rx with podiatry, id and surg recs noted Objective Last 24 Hour Vital Signs Date Time Temp Pulse Resp B/P (MAP) Pulse Ox O2 Delivery O2 Flow Rate FiO2 10/08/19 09:00 Room Air 10/08/19 09:00 97.9 83 18 108/69 (82) 98 10/08/19 04:00 98.2 79 20 114/67 (83) 99 10/08/19 00:00 98.6 69 18 132/76 (94) 99 10/07/19 20:56 Room Air 10/07/19 20:00 97.8 85 18 114/70 (85) 100 10/07/19 16:00 98.1 74 16 113/69 (84) 99 Intake and Output 10/07/19 10/08/19 19:00 07:00 Intake Total 895 ml 1266 ml Balance 895 ml 1266 ml Intake Oral 820 ml 480 ml IV Total 75 ml 786 ml # Voids 3 2 Laboratory Tests 10/08/19 05:58: POC Whole Blood Glucose [Pending] Height (Feet): 5 Height (Inches): 8.00 Weight (Pounds): 178 Objective Dressing: dry Wound: clean Cardiovascular: RSR Respiratory: clear Abdomen: soft, non-tender, present bowel sounds Extremities: no edema, no tenderness, pulses, other Leoncio Campos MD Oct 08, 2019 12:53
[2019-10-08 16:00] VITALS: BP 117/68
[2019-10-08 20:00] VITALS: BP 121/77
[2019-10-08] MEDS: Dyna-Hex 2% Top Sol 2oz TOPIC SCH (20:00)
[2019-10-08] MEDS: Atorvastatin 20mg tab ORAL SCH (20:33)
[2019-10-09] VITALS: BP 117/71
[2019-10-09 04:00] VITALS: BP 113/62
[2019-10-09] MEDS: metroNIDAZOLE 500mg tab ORAL SCH ×3 (05:51→22:16)
[2019-10-09] MEDS: ceFAZolin 2gm/50ml Premix 50 ML IV SCH ×3 (05:51→22:16)
--- NOTE | 2019-10-09 06:36 | General Progress Note ---
Assessment/Plan Problem List: (1) Uncontrolled diabetes mellitus ICD Codes: E11.65 - Type 2 diabetes mellitus with hyperglycemia SNOMED: 43281937, 447232568 Qualifiers: Qualified Codes: E13.65 - Other specified diabetes mellitus with hyperglycemia (2) Hyperglycemia ICD Codes: R73.9 - Hyperglycemia, unspecified SNOMED: 96309904 (3) Cellulitis of toe of left foot ICD Codes: L03.032 - Cellulitis of left toe SNOMED: 28105666 Status: stable, progressing Assessment/Plan: hold Metformin due to lactic acidosis continue Levemir 24 units daily continue Novolog 8 units ac tid continue Novolog sliding scale ac / hs hypoglycemia protocol in order Subjective Allergies: Coded Allergies: No Known Allergies (Unverified , 10/04/19) All Systems: reviewed and negative except above Subjective events noted glucose values are stable Item Value Date Time Bedside Blood Glucose 155 mg/dl H 10/08/19 2134 Bedside Blood Glucose 85 mg/dl 10/08/19 1650 Bedside Blood Glucose 175 mg/dl H 10/08/19 1209 Bedside Blood Glucose 147 mg/dl H 10/08/19 0900 Bedside Blood Glucose 147 mg/dl H 10/08/19 0600 Objective Last 24 Hour Vital Signs Date Time Temp Pulse Resp B/P (MAP) Pulse Ox O2 Delivery O2 Flow Rate FiO2 10/09/19 04:00 97.5 70 18 113/62 (79) 97 10/09/19 00:00 98.3 75 17 117/71 (86) 99 10/08/19 21:00 Room Air 10/08/19 20:00 98.1 77 18 121/77 (92) 99 10/08/19 16:00 97.9 77 17 117/68 (84) 98 10/08/19 12:00 97.6 77 19 120/72 (88) 96 10/08/19 09:00 Room Air 10/08/19 09:00 97.9 83 18 108/69 (82) 98 Intake and Output 10/08/19 10/09/19 19:00 07:00 Intake Total 640 ml Balance 640 ml Intake Oral 640 ml # Voids 3 Laboratory Tests 10/08/19 16:13: POC Whole Blood Glucose 85 10/08/19 21:22: POC Whole Blood Glucose 155H Height (Feet): 5 Height (Inches): 8.00 Weight (Pounds): 178 General Appearance: no apparent distress Neck: normal alignment Cardiovascular: normal rate Respiratory/Chest: lungs clear Abdomen: normal bowel sounds Objective Current Medications Medications (Trade) Dose Ordered Sig/Jerman Route PRN Reason Start Time Stop Time Status Last Admin Dose Admin Aspirin (ASA) 81 mg DAILY ORAL 10/08/19 11:30 11/22/19 11:29 10/08/19 12:03 Atorvastatin Calcium (Lipitor) 20 mg BEDTIME ORAL 10/08/19 21:00 01/06/20 20:59 10/08/19 20:33 Cefazolin Sodium 50 ml @ 100 mls/hr Q8HR IV 10/06/19 14:00 10/13/19 13:59 10/09/19 05:51 Chlorhexidine Gluconate (Kelli-Hex 2%) 1 applic DAILY@2000 TOPIC 10/07/19 20:00 01/05/20 19:59 Dextrose (Dextrose 50%) 25 ml Q30M PRN IV Hypoglycemia 10/05/19 07:15 01/03/20 07:14 Dextrose (Dextrose 50%) 50 ml Q30M PRN IV Hypoglycemia 10/05/19 07:15 01/03/20 07:14 Heparin Sodium (Porcine) (Heparin 5000 units/ml) 5,000 units EVERY 12 HOURS SUBQ 10/04/19 09:00 11/18/19 08:59 10/08/19 20:34 Heparin Sodium/ Sodium Chloride (Heparin 1000 units/500ml Premix) 1,000 unit ONCE PRN IV PICC LINE PLACEMENT 10/07/19 14:00 10/09/19 23:59 Insulin Aspart (NovoLOG) BEFORE MEALS AND HS SUBQ 10/04/19 11:30 01/02/20 11:29 10/08/19 21:00 Insulin Aspart (NovoLOG) 8 units NOVOTIAC SUBQ 10/05/19 11:50 01/03/20 11:49 10/08/19 12:09 Insulin Detemir (Levemir) 24 units DAILY SUBQ 10/04/19 09:00 01/02/20 08:59 10/08/19 21:34 Lidocaine HCl (Xylocaine 1% 30ml) 30 ml ONCE PRN INJ PICC LINE PLACEMENT 10/07/19 14:00 10/09/19 23:59 Metronidazole (Flagyl) 500 mg Q8HR ORAL 10/04/19 14:00 10/11/19 13:59 10/09/19 05:51 Morphine Sulfate (Morphine Sulfate) 2 mg Q4H PRN IVP For Pain 10/04/19 06:45 10/11/19 06:44 Sodium Chloride 1,000 ml @ 75 mls/hr [id number] IV 10/04/19 07:44 11/03/19 07:43 10/08/19 18:28 Kyle De Jesus MD Oct 09, 2019 06:36
[2019-10-09] MEDS: NovoLOG Insulin Flexpen SUBQ SCH ×7 (06:42→21:00)
[2019-10-09 08:00] VITALS: BP 114/71
[2019-10-09 08:10] LABS: BASOPHILS % (AUTO) 0.9 % (0.0-2.0); EOSINOPHILS % (AUTO) 2.6 % (0.0-3.0); HEMATOCRIT 37.5 % (37.0-47.0); HEMOGLOBIN 12.1 G/DL (12.0-16.0); LYMPHOCYTES % (AUTO) 41.7 % (20.0-45.0); MEAN CORPUSCULAR VOLUME 83 FL (80-99); NEUTROPHILS % (AUTO) 45.8 % (45.0-75.0); PLATELET COUNT 353 K/UL (150-450); RED BLOOD COUNT 4.51 M/UL (4.20-5.40); RED CELL DISTRIBUTION WIDTH 13.4 % (11.6-14.8); WHITE BLOOD COUNT 5.3 K/UL (4.8-10.8)
[2019-10-09 08:25] LABS: ALANINE AMINOTRANSFERASE 53 U/L (12-78); ALBUMIN 2.9 G/DL (3.4-5.0); ALBUMIN/GLOBULIN RATIO 0.6 (1.0-2.7); ALKALINE PHOSPHATASE 64 U/L (46-116); ANION GAP 6 mmol/L (5-15); ASPARTATE AMINO TRANSFERASE 58 U/L (15-37); BILIRUBIN,TOTAL 0.3 MG/DL (0.2-1.0); BLOOD UREA NITROGEN 10 mg/dL (7-18); CALCIUM 9.5 MG/DL (8.5-10.1); CARBON DIOXIDE 30 MMOL/L (21-32); CHLORIDE 104 MMOL/L (98-107); CREATININE 0.7 MG/DL (0.55-1.30); SODIUM 140 MMOL/L (136-145)
[2019-10-09] MEDS: Aspirin Baby 81mg ORAL SCH (09:00)
[2019-10-09] MEDS: Heparin 5000 units/ml inj SUBQ SCH ×2 (09:00→20:18)
--- NOTE | 2019-10-09 10:25 | General Progress Note ---
Assessment/Plan Problem List: (1) Hyperglycemia ICD Codes: R73.9 - Hyperglycemia, unspecified SNOMED: 52898811 (2) Uncontrolled diabetes mellitus ICD Codes: E11.65 - Type 2 diabetes mellitus with hyperglycemia SNOMED: 91891581, 432904685 Qualifiers: Qualified Codes: E13.65 - Other specified diabetes mellitus with hyperglycemia (3) Cellulitis of toe of left foot ICD Codes: L03.032 - Cellulitis of left toe SNOMED: 22933938 Status: stable, progressing Assessment/Plan: wound care abx bs control cbc bmp am dc if clear Subjective Constitutional: Reports: weakness Allergies: Coded Allergies: No Known Allergies (Unverified , 10/04/19) All Systems: reviewed and negative except above Subjective sleepy calm Objective Last 24 Hour Vital Signs Date Time Temp Pulse Resp B/P (MAP) Pulse Ox O2 Delivery O2 Flow Rate FiO2 10/09/19 09:00 Room Air 10/09/19 08:00 98.6 74 20 114/71 (85) 96 10/09/19 04:00 97.5 70 18 113/62 (79) 97 10/09/19 00:00 98.3 75 17 117/71 (86) 99 10/08/19 21:00 Room Air 10/08/19 20:00 98.1 77 18 121/77 (92) 99 10/08/19 16:00 97.9 77 17 117/68 (84) 98 10/08/19 12:00 97.6 77 19 120/72 (88) 96 Intake and Output 10/08/19 10/09/19 19:00 07:00 Intake Total 640 ml 500 ml Balance 640 ml 500 ml Intake Oral 640 ml 500 ml # Voids 3 3 Laboratory Tests 10/08/19 16:13: POC Whole Blood Glucose 85 10/08/19 21:22: POC Whole Blood Glucose 155H 10/09/19 07:20: White Blood Count 5.3, Red Blood Count 4.51, Hemoglobin 12.1, Hematocrit 37.5, Mean Corpuscular Volume 83, Mean Corpuscular Hemoglobin 26.8L, Mean Corpuscular Hemoglobin Concent 32.2, Red Cell Distribution Width 13.4, Platelet Count 353, Mean Platelet Volume 6.5, Neutrophils (%) (Auto) 45.8, Lymphocytes (%) (Auto) 41.7, Monocytes (%) (Auto) 9.0, Eosinophils (%) (Auto) 2.6, Basophils (%) (Auto ) 0.9, Sodium Level 140, Potassium Level 4.0, Chloride Level 104, Carbon Dioxide Level 30, Anion Gap 6, Blood Urea Nitrogen 10, Creatinine 0.7, Estimat Glomerular Filtration Rate > 60, Glucose Level 166H, Calcium Level 9.5, Total Bilirubin 0.3, Aspartate Amino Transf (AST/SGOT) 58H, Alanine Aminotransferase ( ALT/SGPT) 53, Alkaline Phosphatase 64, Total Protein 7.4, Albumin 2.9L, Globulin 4.5, Albumin/Globulin Ratio 0.6L Height (Feet): 5 Height (Inches): 8.00 Weight (Pounds): 178 General Appearance: lethargic EENT: normal ENT inspection Neck: normal alignment Cardiovascular: normal peripheral pulses, normal rate, regular rhythm Respiratory/Chest: chest wall non-tender, lungs clear, normal breath sounds Abdomen: normal bowel sounds, non tender, soft Extremities: normal inspection Edema: no edema noted Arm (L), no edema noted Arm (R), no edema noted Leg (L), no edema noted Leg (R), no edema noted Pedal (L), no edema noted Pedal (R), no edema noted Generalized Neurologic: motor weakness Skin: normal pigmentation, warm/dry Hieu Barkley DO Oct 09, 2019 10:25
--- NOTE | 2019-10-09 11:51 | Hematology/Onc Progress Note ---
Assessment/Plan Assessment/Plan # Anemia of chronic disease due to underlying chronic medical issues, multifactorial v Gi bleed --> Anemia workup has been ordered, rule out gi bleed -->prn --> No evidence of hemolysis is noted, peripheral smear has been reviewed. --> Hgb goal >7. Transfuse prn. --> Epogen or iron at this time is not particularly indicated --> Medications have been reviewed # Hyperglycemia ICD Codes: R73.9 - Hyperglycemia, unspecified SNOMED: 40757404 # Uncontrolled diabetes mellitus ICD Codes: E11.65 - Type 2 diabetes mellitus with hyperglycemia SNOMED: 99507145, 336932846 Qualifiers: Qualified Codes: E13.65 - Other specified diabetes mellitus with hyperglycemia # Cellulitis of toe of left foot ICD Codes: L03.032 - Cellulitis of left toe SNOMED: 91686884 Status: stable, progressing Subjective Constitutional: Denies: no symptoms, chills, fever, malaise, weakness, other HEENT: Denies: no symptoms, eye pain, blurred vision, tearing, double vision, ear pain, ear discharge, nose pain, nose congestion, throat pain, throat swelling, mouth pain, mouth swelling, other Respiratory: Denies: no symptoms, cough, shortness of breath, SOB with excertion, SOB at rest, sputum, wheezing, other Gastrointestinal/Abdominal: Denies: no symptoms, abdomen distended, abdominal pain, black stools, tarry stools, blood in stool, constipated, diarrhea, difficulty swallowing, nausea, poor appetite, poor fluid intake, rectal bleeding , vomiting, other Genitourinary: Denies: no symptoms, burning, discharge, frequency, flank pain, hematuria, incontinence, pain, urgency, other Endocrine: Denies: no symptoms, excessive sweating, flushing, intolerance to cold, intolerance to heat, increased hunger, increased thirst, increased urine, unexplained weight gain, unexplained weight loss, other Allergies: Coded Allergies: No Known Allergies (Unverified , 10/04/19) Subjective 10/05 meds noted, covering for Bark[place], no bleeding, cbc and bmp 10/06 labs noted, no bleeding, left hallux drainage from toe 10/07 with left toe osteo, further rx with podiatry, id and surg recs noted 10/08 meds reviewed, nad, no bleeding, no night sweats Objective Objective Current Medications Medications (Trade) Dose Ordered Sig/Jerman Route PRN Reason Start Time Stop Time Status Last Admin Dose Admin Aspirin (ASA) 81 mg DAILY ORAL 10/08/19 11:30 11/22/19 11:29 10/09/19 09:00 Atorvastatin Calcium (Lipitor) 20 mg BEDTIME ORAL 10/08/19 21:00 01/06/20 20:59 10/08/19 20:33 Cefazolin Sodium 50 ml @ 100 mls/hr Q8HR IV 10/06/19 14:00 10/13/19 13:59 10/09/19 05:51 Chlorhexidine Gluconate (Kelli-Hex 2%) 1 applic DAILY@2000 TOPIC 10/07/19 20:00 01/05/20 19:59 Dextrose (Dextrose 50%) 25 ml Q30M PRN IV Hypoglycemia 10/05/19 07:15 01/03/20 07:14 Dextrose (Dextrose 50%) 50 ml Q30M PRN IV Hypoglycemia 10/05/19 07:15 01/03/20 07:14 Heparin Sodium (Porcine) (Heparin 5000 units/ml) 5,000 units EVERY 12 HOURS SUBQ 10/04/19 09:00 11/18/19 08:59 10/09/19 09:00 Heparin Sodium/ Sodium Chloride (Heparin 1000 units/500ml Premix) 1,000 unit ONCE PRN IV PICC LINE PLACEMENT 10/07/19 14:00 10/09/19 23:59 Insulin Aspart (NovoLOG) BEFORE MEALS AND HS SUBQ 10/04/19 11:30 01/02/20 11:29 10/09/19 06:42 Insulin Aspart (NovoLOG) 8 units NOVOTIAC SUBQ 10/05/19 11:50 01/03/20 11:49 10/09/19 06:43 Insulin Detemir (Levemir) 24 units DAILY SUBQ 10/04/19 09:00 01/02/20 08:59 10/08/19 21:34 Lidocaine HCl (Xylocaine 1% 30ml) 30 ml ONCE PRN INJ PICC LINE PLACEMENT 10/07/19 14:00 10/09/19 23:59 Metronidazole (Flagyl) 500 mg Q8HR ORAL 10/04/19 14:00 10/11/19 13:59 10/09/19 05:51 Morphine Sulfate (Morphine Sulfate) 2 mg Q4H PRN IVP For Pain 10/04/19 06:45 10/11/19 06:44 Sodium Chloride 1,000 ml @ 75 mls/hr [id number] IV 10/04/19 07:44 11/03/19 07:43 10/09/19 08:46 Last 24 Hour Vital Signs Date Time Temp Pulse Resp B/P (MAP) Pulse Ox O2 Delivery O2 Flow Rate FiO2 10/09/19 09:00 Room Air 10/09/19 08:00 98.6 74 20 114/71 (85) 96 10/09/19 04:00 97.5 70 18 113/62 (79) 97 10/09/19 00:00 98.3 75 17 117/71 (86) 99 10/08/19 21:00 Room Air 10/08/19 20:00 98.1 77 18 121/77 (92) 99 10/08/19 16:00 97.9 77 17 117/68 (84) 98 10/08/19 12:00 97.6 77 19 120/72 (88) 96 10/08/19 09:00 Room Air 10/08/19 09:00 97.9 83 18 108/69 (82) 98 10/08/19 04:00 98.2 79 20 114/67 (83) 99 10/08/19 00:00 98.6 69 18 132/76 (94) 99 10/07/19 20:56 Room Air 10/07/19 20:00 97.8 85 18 114/70 (85) 100 10/07/19 16:00 98.1 74 16 113/69 (84) 99 10/07/19 12:00 98.2 79 16 115/70 (85) 98 Intake and Output 10/08/19 10/09/19 19:00 07:00 Intake Total 640 ml 500 ml Balance 640 ml 500 ml Intake Oral 640 ml 500 ml # Voids 3 3 Labs Test 10/06/19 17:47 10/06/19 20:26 10/07/19 11:57 10/08/19 05:58 POC Whole Blood Glucose 214 MG/DL (74-106) 194 MG/DL (74-106) 177 MG/DL (74-106) Test 10/08/19 16:13 10/08/19 21:22 10/09/19 07:20 POC Whole Blood Glucose 85 MG/DL (74-106) 155 MG/DL (74-106) White Blood Count 5.3 K/UL (4.8-10.8) Red Blood Count 4.51 M/UL (4.20-5.40) Hemoglobin 12.1 G/DL (12.0-16.0) Hematocrit 37.5 % (37.0-47.0) Mean Corpuscular Volume 83 FL (80-99) Mean Corpuscular Hemoglobin 26.8 PG (27.0-31.0) Mean Corpuscular Hemoglobin Concent 32.2 G/DL (32.0-36.0) Red Cell Distribution Width 13.4 % (11.6-14.8) Platelet Count 353 K/UL (150-450) Mean Platelet Volume 6.5 FL (6.5-10.1) Neutrophils (%) (Auto) 45.8 % (45.0-75.0) Lymphocytes (%) (Auto) 41.7 % (20.0-45.0) Monocytes (%) (Auto) 9.0 % (1.0-10.0) Eosinophils (%) (Auto) 2.6 % (0.0-3.0) Basophils (%) (Auto) 0.9 % (0.0-2.0) Sodium Level 140 MMOL/L (136-145) Potassium Level 4.0 MMOL/L (3.5-5.1) Chloride Level 104 MMOL/L (98-107) Carbon Dioxide Level 30 MMOL/L (21-32) Anion Gap 6 mmol/L (5-15) Blood Urea Nitrogen 10 mg/dL (7-18) Creatinine 0.7 MG/DL (0.55-1.30) Estimat Glomerular Filtration Rate > 60 mL/min (>60) Glucose Level 166 MG/DL (74-106) Calcium Level 9.5 MG/DL (8.5-10.1) Total Bilirubin 0.3 MG/DL (0.2-1.0) Aspartate Amino Transf (AST/SGOT) 58 U/L (15-37) Alanine Aminotransferase (ALT/SGPT) 53 U/L (12-78) Alkaline Phosphatase 64 U/L (46-116) Total Protein 7.4 G/DL (6.4-8.2) Albumin 2.9 G/DL (3.4-5.0) Globulin 4.5 g/dL Albumin/Globulin Ratio 0.6 (1.0-2.7) Height (Feet): 5 Height (Inches): 8.00 Weight (Pounds): 178 Objective Dressing: dry Wound: clean Cardiovascular: RSR Respiratory: clear Abdomen: soft, non-tender, present bowel sounds Extremities: no edema, no tenderness, pulses, other Leoncio Campos MD Oct 09, 2019 11:51
[2019-10-09 12:00] VITALS: BP 114/69
--- NOTE | 2019-10-09 12:14 | Infectious Diseases Prog Note ---
Assessment/Plan Assessment: L 1st toe cellulitis, and OM 1st distal phalanx -MRI L foot: Findings consistent with osteomyelitis of the first distal phalanx. Dorsal soft tissue edema of the forefoot as well as circumferential edema of the great toe, most likely indicating cellulitis given stated clinical history. No evidence of drainable abscess -L foot xray: NO ACUTE BONY ABNORMALITY. -wound cx S. MSSA -ESR 74, CRP 7.5 -v. duplex no DVT -a. duplex: Negative for evidence of significant peripheral arterial insufficiency on the right. Monophasic but otherwise preserved waveforms on the left at the popliteal artery and distal levels. Suspect on the basis of decreased peripheral resistance due to hyperemia, but mild suprageniculate stenosis also possible. Afebrile No leukocytosis Dm2 Plan: - IV Ancef # 4 (abx d #) for MSSA OM, add Flagyl # 09/09 ( Anearobic coverage) Flagyl can be switched to oral AB Rx upon DC --will need 6 weeks of treatment -10/05 Sp c IV Vancomycin, Flagyl and Ceftriaxone #3 -10/03 SP Clindamycin x1 -f/u cx -Monitor CBC/CMP, temperatures -podiatry f/u -wound care per talent buyer and surgeon: plan for outpatient angio Thank you for this consultation. Will continue to follow along with you. Discussed with RN. Subjective Allergies: Coded Allergies: No Known Allergies (Unverified , 10/04/19) afebrile no leukocytosis Bcx NTD Objective Last 24 Hour Vital Signs Date Time Temp Pulse Resp B/P (MAP) Pulse Ox O2 Delivery O2 Flow Rate FiO2 10/09/19 09:00 Room Air 10/09/19 08:00 98.6 74 20 114/71 (85) 96 10/09/19 04:00 97.5 70 18 113/62 (79) 97 10/09/19 00:00 98.3 75 17 117/71 (86) 99 10/08/19 21:00 Room Air 10/08/19 20:00 98.1 77 18 121/77 (92) 99 10/08/19 16:00 97.9 77 17 117/68 (84) 98 Height (Feet): 5 Height (Inches): 8.00 Weight (Pounds): 178 General Appearance: no apparent distress, alert Head: normocephalic Eyes: bilateral eye normal inspection, bilateral eye PERRL Respiratory: chest non-tender, lungs clear, normal breath sounds, speaking full sentences Cardiovascular #1: no edema, tachycardia Gastrointestinal: normal bowel sounds, non tender, soft, non-distended, no guarding, no rebound Skin: other - L big toe swelling/erythema/induration Microbiology Date/Time Source Procedure Growth Status 10/07/19 16:50 Nasopharynx SARS-CoV-2 RdRp Gene Assay - Final Complete Laboratory Tests Test 10/08/19 16:13 10/08/19 21:22 10/09/19 07:20 POC Whole Blood Glucose 85 MG/DL (74-106) 155 MG/DL (74-106) H White Blood Count 5.3 K/UL (4.8-10.8) Red Blood Count 4.51 M/UL (4.20-5.40) Hemoglobin 12.1 G/DL (12.0-16.0) Hematocrit 37.5 % (37.0-47.0) Mean Corpuscular Volume 83 FL (80-99) Mean Corpuscular Hemoglobin 26.8 PG (27.0-31.0) L Mean Corpuscular Hemoglobin Concent 32.2 G/DL (32.0-36.0) Red Cell Distribution Width 13.4 % (11.6-14.8) Platelet Count 353 K/UL (150-450) Mean Platelet Volume 6.5 FL (6.5-10.1) Neutrophils (%) (Auto) 45.8 % (45.0-75.0) Lymphocytes (%) (Auto) 41.7 % (20.0-45.0) Monocytes (%) (Auto) 9.0 % (1.0-10.0) Eosinophils (%) (Auto) 2.6 % (0.0-3.0) Basophils (%) (Auto) 0.9 % (0.0-2.0) Sodium Level 140 MMOL/L (136-145) Potassium Level 4.0 MMOL/L (3.5-5.1) Chloride Level 104 MMOL/L (98-107) Carbon Dioxide Level 30 MMOL/L (21-32) Anion Gap 6 mmol/L (5-15) Blood Urea Nitrogen 10 mg/dL (7-18) Creatinine 0.7 MG/DL (0.55-1.30) Estimat Glomerular Filtration Rate > 60 mL/min (>60) Glucose Level 166 MG/DL (74-106) H Calcium Level 9.5 MG/DL (8.5-10.1) Total Bilirubin 0.3 MG/DL (0.2-1.0) Aspartate Amino Transf (AST/SGOT) 58 U/L (15-37) H Alanine Aminotransferase (ALT/SGPT) 53 U/L (12-78) Alkaline Phosphatase 64 U/L (46-116) Total Protein 7.4 G/DL (6.4-8.2) Albumin 2.9 G/DL (3.4-5.0) L Globulin 4.5 g/dL Albumin/Globulin Ratio 0.6 (1.0-2.7) L Current Medications Medications (Trade) Dose Ordered Sig/Jerman Route PRN Reason Start Time Stop Time Status Last Admin Dose Admin Aspirin (ASA) 81 mg DAILY ORAL 10/08/19 11:30 11/22/19 11:29 10/09/19 09:00 Atorvastatin Calcium (Lipitor) 20 mg BEDTIME ORAL 10/08/19 21:00 01/06/20 20:59 10/08/19 20:33 Cefazolin Sodium 50 ml @ 100 mls/hr Q8HR IV 10/06/19 14:00 10/13/19 13:59 10/09/19 05:51 Chlorhexidine Gluconate (Kelli-Hex 2%) 1 applic DAILY@2000 TOPIC 10/07/19 20:00 01/05/20 19:59 Dextrose (Dextrose 50%) 25 ml Q30M PRN IV Hypoglycemia 10/05/19 07:15 01/03/20 07:14 Dextrose (Dextrose 50%) 50 ml Q30M PRN IV Hypoglycemia 10/05/19 07:15 01/03/20 07:14 Heparin Sodium (Porcine) (Heparin 5000 units/ml) 5,000 units EVERY 12 HOURS SUBQ 10/04/19 09:00 11/18/19 08:59 10/09/19 09:00 Heparin Sodium/ Sodium Chloride (Heparin 1000 units/500ml Premix) 1,000 unit ONCE PRN IV PICC LINE PLACEMENT 10/07/19 14:00 10/09/19 23:59 Insulin Aspart (NovoLOG) BEFORE MEALS AND HS SUBQ 10/04/19 11:30 01/02/20 11:29 10/09/19 06:42 Insulin Aspart (NovoLOG) 8 units NOVOTIAC SUBQ 10/05/19 11:50 01/03/20 11:49 10/09/19 06:43 Insulin Detemir (Levemir) 24 units DAILY SUBQ 10/04/19 09:00 01/02/20 08:59 10/08/19 21:34 Lidocaine HCl (Xylocaine 1% 30ml) 30 ml ONCE PRN INJ PICC LINE PLACEMENT 10/07/19 14:00 10/09/19 23:59 Metronidazole (Flagyl) 500 mg Q8HR ORAL 10/04/19 14:00 10/11/19 13:59 10/09/19 05:51 Morphine Sulfate (Morphine Sulfate) 2 mg Q4H PRN IVP For Pain 10/04/19 06:45 10/11/19 06:44 Sodium Chloride 1,000 ml @ 75 mls/hr [id number] IV 10/04/19 07:44 11/03/19 07:43 10/09/19 08:46 Dionne Blake M.D. Oct 09, 2019 12:14
--- NOTE | 2019-10-09 12:28 | Surgery Progress Note ---
Surgery Progress Note Subjective Additional Comments no acute events comfortable stable discussed care plan Objective Last 24 Hour Vital Signs Date Time Temp Pulse Resp B/P (MAP) Pulse Ox O2 Delivery O2 Flow Rate FiO2 10/09/19 09:00 Room Air 10/09/19 08:00 98.6 74 20 114/71 (85) 96 10/09/19 04:00 97.5 70 18 113/62 (79) 97 10/09/19 00:00 98.3 75 17 117/71 (86) 99 10/08/19 21:00 Room Air 10/08/19 20:00 98.1 77 18 121/77 (92) 99 10/08/19 16:00 97.9 77 17 117/68 (84) 98 I&O Intake and Output 10/08/19 10/09/19 19:00 07:00 Intake Total 640 ml 500 ml Balance 640 ml 500 ml Intake Oral 640 ml 500 ml # Voids 3 3 Dressing: other Wound: other Drains: other Cardiovascular: RSR Respiratory: decreased breath sounds Abdomen: soft, non-tender, present bowel sounds Extremities: no tenderness, no cyanosis Laboratory Tests Test 10/08/19 16:13 10/08/19 21:22 10/09/19 07:20 POC Whole Blood Glucose 85 MG/DL (74-106) 155 MG/DL (74-106) H White Blood Count 5.3 K/UL (4.8-10.8) Red Blood Count 4.51 M/UL (4.20-5.40) Hemoglobin 12.1 G/DL (12.0-16.0) Hematocrit 37.5 % (37.0-47.0) Mean Corpuscular Volume 83 FL (80-99) Mean Corpuscular Hemoglobin 26.8 PG (27.0-31.0) L Mean Corpuscular Hemoglobin Concent 32.2 G/DL (32.0-36.0) Red Cell Distribution Width 13.4 % (11.6-14.8) Platelet Count 353 K/UL (150-450) Mean Platelet Volume 6.5 FL (6.5-10.1) Neutrophils (%) (Auto) 45.8 % (45.0-75.0) Lymphocytes (%) (Auto) 41.7 % (20.0-45.0) Monocytes (%) (Auto) 9.0 % (1.0-10.0) Eosinophils (%) (Auto) 2.6 % (0.0-3.0) Basophils (%) (Auto) 0.9 % (0.0-2.0) Sodium Level 140 MMOL/L (136-145) Potassium Level 4.0 MMOL/L (3.5-5.1) Chloride Level 104 MMOL/L (98-107) Carbon Dioxide Level 30 MMOL/L (21-32) Anion Gap 6 mmol/L (5-15) Blood Urea Nitrogen 10 mg/dL (7-18) Creatinine 0.7 MG/DL (0.55-1.30) Estimat Glomerular Filtration Rate > 60 mL/min (>60) Glucose Level 166 MG/DL (74-106) H Calcium Level 9.5 MG/DL (8.5-10.1) Total Bilirubin 0.3 MG/DL (0.2-1.0) Aspartate Amino Transf (AST/SGOT) 58 U/L (15-37) H Alanine Aminotransferase (ALT/SGPT) 53 U/L (12-78) Alkaline Phosphatase 64 U/L (46-116) Total Protein 7.4 G/DL (6.4-8.2) Albumin 2.9 G/DL (3.4-5.0) L Globulin 4.5 g/dL Albumin/Globulin Ratio 0.6 (1.0-2.7) L Plan Problems: (1) Hyperglycemia (2) Uncontrolled diabetes mellitus (3) Cellulitis of toe of left foot Assessment & Plan: left great toe cellulitis and ulcer MRI noted plan for podiatry faustino isaac for diet local wound care will follow with recs abx thank you podiatry / vascular input appreciated plan outpt angio surgical intervention after cont abx and local wound care There is markedly increased STIR signal and decreased T1 signal within the first distal phalanx. No other marrow signal abnormality is demonstrated. There is edema of the subcutaneous fat of the dorsum of the foot. There is circumferential edema of the soft tissues of the great toe. No discrete fluid collection to suggest drainable abscess demonstrated. Impression: Findings consistent with osteomyelitis of the first distal phalanx Dorsal soft tissue edema of the forefoot as well as circumferential edema of the great toe, most likely indicating cellulitis given stated clinical history. No evidence of drainable abscess Negative for evidence of significant peripheral arterial insufficiency on the right Monophasic but otherwise preserved waveforms on the left at the popliteal artery and distal levels. Suspect on the basis of decreased peripheral resistance due to hyperemia, but mild suprageniculate stenosis also possible. Abdominal aorta: There is minimal calcified atherosclerotic plaquing of the abdominal aorta. No significant aortic stenosis, aneurysm, or dissection. The celiac axis, superior mesenteric artery, and proximal branch vessels are patent and nonstenotic. Patent nonstenotic bilateral renal arteries. Patent inferior mesenteric artery. Right lower extremity: Patent and nonstenotic right common, external, and internal iliac arteries. Patent and nonstenotic right common femoral, profunda femoral, superficial femoral arteries. There is calcified atherosclerotic plaquing but no significant stenosis of the popliteal artery. The anterior tibial artery is patent, nonstenotic, reaches the ankle and forms a dorsalis pedis artery. The tibioperoneal trunk demonstrates calcified plaquing but no significant stenosis. It is patent and nonstenotic. The posterior tibial artery is patent, nonstenotic, reaches the ankle. The terminal plantar branch of the posterior tibial artery demonstrates a possibly significant stenosis as it passes the calcaneus, and appears to occlude distally. The peroneal artery occludes shortly beyond its origin and remains occluded over its length Left lower extremity: Patent and nonstenotic common, external, and internal iliac arteries. Patent and nonstenotic common femoral, is profunda femoral, superficial femoral arteries. There is focal stenosis, likely 50% or greater, of the mid popliteal artery at about the level of the knee joint. The anterior tibial artery demonstrates atherosclerotic calcification but no definite focal stenosis. The tibioperoneal trunk and posterior tibial arteries are patent, nonstenotic, the latter reaching well beyond the ankle. The peroneal artery is highly stenotic at its origin, occludes shortly beyond the origin, does not reconstitute. Nonvascular: The included lung bases demonstrate slight mosaic perfusion. The visualized portions of the liver are unremarkable. Unusual densities are seen around the gallbladder fossa. There is a fluid structure that appears to be the gallbladder, although this could represent a small postoperative biloma if there is been prior cholecystectomy. The bile ducts are nondilated. The pancreas, spleen, adrenals, kidneys are unremarkable. No retroperitoneal or mesenteric mass or adenopathy. No pelvic mass or adenopathy. The uterus and ovaries are unremarkable. The bladder is unremarkable. Considerable stool is seen throughout the colon. No small bowel distention. No free or loculated intraperitoneal gas or fluid is evident. The appendix is normal. No small bowel distention. There are degenerative changes of the lumbar spine. IMPRESSION: Stenosis, likely significant, of the mid left popliteal artery. This would likely be amenable to angioplasty Occlusion of the left peroneal artery. No other evidence of left lower extremity peripheral arterial insufficiency Occluded right peroneal artery. Probably occluded terminal branch of the right posterior tibial artery below the ankle. No other evidence of significant right lower extremity arterial insufficiency Somewhat unusual appearance to the gallbladder fossa, may reflect calcifications in or around the gallbladder wall, versus prior cholecystectomy and biloma. Correlate with surgical history [place] Copeland Oct 09, 2019 12:28
--- NOTE | 2019-10-09 14:31 | Pre-Procedure Note/Attestation ---
Pre-Procedure Note/Attestation Complete Prior to Procedure Planned Procedure: not applicable Procedure Narrative: picc line Indications for Procedure Pre-Operative Diagnosis: need iv antibiotiacs Attestation infomred consent obtained from patient prior to the procedure Ravinder Russo M.D. Oct 09, 2019 14:31
--- NOTE | 2019-10-09 14:38 | Diagnostic Imaging Report ---
Indications: Cellulitis. Needs long-term IV access for IV antibiotics Technique: Ultrasound confirms patent compressible left basilic vein. Total sterile technique, including sterile probe cover and sterile gel, hat, mask,, sterile gown, large sterile drape, and preparation with 2% chlorhexidine utilized. Local anesthesia with 1% lidocaine. Under real-time ultrasound guidance, puncture left basilic vein using 21-gauge needle, documented and archived, passage 0.018 guidewire under direct fluoroscopy, which was used to determine appropriate catheter length, exchange for 4.5French peel-away sheath. 4 Hebrew dual-lumen power PICC cut to 40 cm. It was inserted through the peel-away sheath. Peel-away sheath and guidewire removed. Catheter fixed to the skin. Both catheter ports aspirated and flushed. Patient tolerated procedure well, without immediate complication. Digital radiograph documents satisfactory catheter tip position, at the cavoatrial junction. Total fluoroscopy time 6.9 seconds. Total fluoroscopy dose 0.79 mGy. Total number fluoroscopic images obtained: One Impression: Successful placement of PICC under sonographic and fluoroscopic guidance, as described above. Catheter cleared for immediate use.
[2019-10-09 16:00] VITALS: BP 115/97
[2019-10-09 20:00] VITALS: BP 138/74
[2019-10-09] MEDS: Atorvastatin 20mg tab ORAL SCH (20:17)
[2019-10-09] MEDS: Dyna-Hex 2% Top Sol 2oz TOPIC SCH (20:17)
[2019-10-10 00:10] VITALS: BP 114/66
[2019-10-10 04:31] VITALS: BP 117/78
[2019-10-10 05:28] LABS: ANION GAP 3 mmol/L (5-15); BLOOD UREA NITROGEN 12 mg/dL (7-18); CALCIUM 8.7 MG/DL (8.5-10.1); CARBON DIOXIDE 28 MMOL/L (21-32); CHLORIDE 108 MMOL/L (98-107); CREATININE 0.7 MG/DL (0.55-1.30); POTASSIUM 3.6 MMOL/L (3.5-5.1); SODIUM 139 MMOL/L (136-145)
[2019-10-10 05:29] LABS: BASOPHILS % (AUTO) 1.4 % (0.0-2.0); EOSINOPHILS % (AUTO) 1.6 % (0.0-3.0); HEMATOCRIT 35.1 % (37.0-47.0); HEMOGLOBIN 11.3 G/DL (12.0-16.0); LYMPHOCYTES % (AUTO) 40.7 % (20.0-45.0); MEAN CORPUSCULAR VOLUME 83 FL (80-99); NEUTROPHILS % (AUTO) 47.3 % (45.0-75.0); PLATELET COUNT 315 K/UL (150-450); RED BLOOD COUNT 4.23 M/UL (4.20-5.40); RED CELL DISTRIBUTION WIDTH 13.2 % (11.6-14.8); WHITE BLOOD COUNT 5.1 K/UL (4.8-10.8)
[2019-10-10] MEDS: ceFAZolin 2gm/50ml Premix 50 ML IV SCH ×2 (06:01→13:00)
[2019-10-10] MEDS: metroNIDAZOLE 500mg tab ORAL SCH ×2 (06:01→13:00)
[2019-10-10] MEDS: NovoLOG Insulin Flexpen SUBQ SCH ×6 (06:02→18:21)
--- NOTE | 2019-10-10 06:47 | General Progress Note ---
Assessment/Plan Problem List: (1) Uncontrolled diabetes mellitus ICD Codes: E11.65 - Type 2 diabetes mellitus with hyperglycemia SNOMED: 08481033, 602124365 Qualifiers: Qualified Codes: E13.65 - Other specified diabetes mellitus with hyperglycemia (2) Hyperglycemia ICD Codes: R73.9 - Hyperglycemia, unspecified SNOMED: 08439383 (3) Cellulitis of toe of left foot ICD Codes: L03.032 - Cellulitis of left toe SNOMED: 62673605 Status: stable, progressing Assessment/Plan: hold Metformin due to lactic acidosis continue Levemir 24 units daily continue Novolog 8 units ac tid continue Novolog sliding scale ac / hs hypoglycemia protocol in order Subjective Allergies: Coded Allergies: No Known Allergies (Unverified , 10/04/19) All Systems: reviewed and negative except above Subjective events noted glucose values are stable Item Value Date Time Bedside Blood Glucose 179 mg/dl H 10/10/19 0606 Bedside Blood Glucose 236 mg/dl H 10/09/19 2229 Bedside Blood Glucose 186 mg/dl H 10/09/19 1651 Bedside Blood Glucose 245 mg/dl H 10/09/19 1209 Bedside Blood Glucose 168 mg/dl H 10/09/19 0643 Objective Last 24 Hour Vital Signs Date Time Temp Pulse Resp B/P (MAP) Pulse Ox O2 Delivery O2 Flow Rate FiO2 10/10/19 04:31 98.1 79 20 117/78 (91) 98 10/10/19 00:10 98.2 69 20 114/66 (82) 98 10/09/19 22:07 Room Air 10/09/19 20:00 98.7 74 18 138/74 (95) 97 10/09/19 16:00 98.4 75 20 115/97 (103) 97 10/09/19 12:00 98.1 72 20 114/69 (84) 98 10/09/19 09:00 Room Air 10/09/19 08:00 98.6 74 20 114/71 (85) 96 Intake and Output 10/09/19 10/10/19 19:00 07:00 Intake Total 1680 ml Balance 1680 ml Intake Oral 1080 ml IV Total 600 ml # Voids 3 Laboratory Tests 10/09/19 07:20: White Blood Count 5.3, Red Blood Count 4.51, Hemoglobin 12.1, Hematocrit 37.5, Mean Corpuscular Volume 83, Mean Corpuscular Hemoglobin 26.8L, Mean Corpuscular Hemoglobin Concent 32.2, Red Cell Distribution Width 13.4, Platelet Count 353, Mean Platelet Volume 6.5, Neutrophils (%) (Auto) 45.8, Lymphocytes (%) (Auto) 41.7, Monocytes (%) (Auto) 9.0, Eosinophils (%) (Auto) 2.6, Basophils (%) (Auto ) 0.9, Sodium Level 140, Potassium Level 4.0, Chloride Level 104, Carbon Dioxide Level 30, Anion Gap 6, Blood Urea Nitrogen 10, Creatinine 0.7, Estimat Glomerular Filtration Rate > 60, Glucose Level 166H, Calcium Level 9.5, Total Bilirubin 0.3, Aspartate Amino Transf (AST/SGOT) 58H, Alanine Aminotransferase ( ALT/SGPT) 53, Alkaline Phosphatase 64, Total Protein 7.4, Albumin 2.9L, Globulin 4.5, Albumin/Globulin Ratio 0.6L 10/10/19 04:30: White Blood Count 5.1, Red Blood Count 4.23, Hemoglobin 11.3L, Hematocrit 35.1L , Mean Corpuscular Volume 83, Mean Corpuscular Hemoglobin 26.8L, Mean Corpuscular Hemoglobin Concent 32.3, Red Cell Distribution Width 13.2, Platelet Count 315, Mean Platelet Volume 6.6, Neutrophils (%) (Auto) 47.3, Lymphocytes (% ) (Auto) 40.7, Monocytes (%) (Auto) 9.0, Eosinophils (%) (Auto) 1.6, Basophils ( %) (Auto) 1.4, Sodium Level 139, Potassium Level 3.6, Chloride Level 108H, Carbon Dioxide Level 28, Anion Gap 3L, Blood Urea Nitrogen 12, Creatinine 0.7, Estimat Glomerular Filtration Rate > 60, Glucose Level 157H, Calcium Level 8.7 Height (Feet): 5 Height (Inches): 8.00 Weight (Pounds): 178 General Appearance: no apparent distress Neck: normal alignment Cardiovascular: normal rate Respiratory/Chest: lungs clear Abdomen: normal bowel sounds Pelvis: normal external exam Objective Current Medications Medications (Trade) Dose Ordered Sig/Jerman Route PRN Reason Start Time Stop Time Status Last Admin Dose Admin Aspirin (ASA) 81 mg DAILY ORAL 10/08/19 11:30 11/22/19 11:29 10/09/19 09:00 Atorvastatin Calcium (Lipitor) 20 mg BEDTIME ORAL 10/08/19 21:00 01/06/20 20:59 10/09/19 20:17 Cefazolin Sodium 50 ml @ 100 mls/hr Q8HR IV 10/06/19 14:00 10/13/19 13:59 10/10/19 06:01 Chlorhexidine Gluconate (Kelli-Hex 2%) 1 applic DAILY@2000 TOPIC 10/07/19 20:00 01/05/20 19:59 10/09/19 20:17 Dextrose (Dextrose 50%) 25 ml Q30M PRN IV Hypoglycemia 10/05/19 07:15 01/03/20 07:14 Dextrose (Dextrose 50%) 50 ml Q30M PRN IV Hypoglycemia 10/05/19 07:15 01/03/20 07:14 Heparin Sodium (Porcine) (Heparin 5000 units/ml) 5,000 units EVERY 12 HOURS SUBQ 10/04/19 09:00 11/18/19 08:59 10/09/19 20:18 Insulin Aspart (NovoLOG) BEFORE MEALS AND HS SUBQ 10/04/19 11:30 01/02/20 11:29 10/10/19 06:02 Insulin Aspart (NovoLOG) 8 units NOVOTIAC SUBQ 10/05/19 11:50 01/03/20 11:49 10/10/19 06:04 Insulin Detemir (Levemir) 24 units DAILY SUBQ 10/04/19 09:00 01/02/20 08:59 10/08/19 21:34 Metronidazole (Flagyl) 500 mg Q8HR ORAL 10/04/19 14:00 10/11/19 13:59 10/10/19 06:01 Morphine Sulfate (Morphine Sulfate) 2 mg Q4H PRN IVP For Pain 10/04/19 06:45 10/11/19 06:44 Sodium Chloride 1,000 ml @ 75 mls/hr [id number] IV 10/04/19 07:44 11/03/19 07:43 10/09/19 22:27 Kyle De Jesus MD Oct 10, 2019 06:47
[2019-10-10 07:59] VITALS: BP 112/64
[2019-10-10] MEDS: Heparin 5000 units/ml inj SUBQ SCH (09:00)
[2019-10-10] MEDS: Aspirin Baby 81mg ORAL SCH (09:45)
[2019-10-10] MEDS: Levemir Flexpen SUBQ SCH (09:49)
--- NOTE | 2019-10-10 10:58 | Surgery Progress Note ---
Surgery Progress Note Subjective Additional Comments doing well picc line in place no complaints Objective Last 24 Hour Vital Signs Date Time Temp Pulse Resp B/P (MAP) Pulse Ox O2 Delivery O2 Flow Rate FiO2 10/10/19 09:00 Room Air 10/10/19 07:59 98.2 89 20 112/64 (80) 99 10/10/19 04:31 98.1 79 20 117/78 (91) 98 10/10/19 00:10 98.2 69 20 114/66 (82) 98 10/09/19 22:07 Room Air 10/09/19 20:00 98.7 74 18 138/74 (95) 97 10/09/19 16:00 98.4 75 20 115/97 (103) 97 10/09/19 12:00 98.1 72 20 114/69 (84) 98 I&O Intake and Output 10/09/19 10/10/19 19:00 07:00 Intake Total 1680 ml Balance 1680 ml Intake Oral 1080 ml IV Total 600 ml # Voids 3 Dressing: dry Wound: clean Cardiovascular: RSR Respiratory: clear Abdomen: soft, non-tender, present bowel sounds Extremities: edema, no tenderness, no cyanosis, pulses, other Laboratory Tests Test 10/10/19 04:30 White Blood Count 5.1 K/UL (4.8-10.8) Red Blood Count 4.23 M/UL (4.20-5.40) Hemoglobin 11.3 G/DL (12.0-16.0) L Hematocrit 35.1 % (37.0-47.0) L Mean Corpuscular Volume 83 FL (80-99) Mean Corpuscular Hemoglobin 26.8 PG (27.0-31.0) L Mean Corpuscular Hemoglobin Concent 32.3 G/DL (32.0-36.0) Red Cell Distribution Width 13.2 % (11.6-14.8) Platelet Count 315 K/UL (150-450) Mean Platelet Volume 6.6 FL (6.5-10.1) Neutrophils (%) (Auto) 47.3 % (45.0-75.0) Lymphocytes (%) (Auto) 40.7 % (20.0-45.0) Monocytes (%) (Auto) 9.0 % (1.0-10.0) Eosinophils (%) (Auto) 1.6 % (0.0-3.0) Basophils (%) (Auto) 1.4 % (0.0-2.0) Sodium Level 139 MMOL/L (136-145) Potassium Level 3.6 MMOL/L (3.5-5.1) Chloride Level 108 MMOL/L (98-107) H Carbon Dioxide Level 28 MMOL/L (21-32) Anion Gap 3 mmol/L (5-15) L Blood Urea Nitrogen 12 mg/dL (7-18) Creatinine 0.7 MG/DL (0.55-1.30) Estimat Glomerular Filtration Rate > 60 mL/min (>60) Glucose Level 157 MG/DL (74-106) H Calcium Level 8.7 MG/DL (8.5-10.1) Plan Problems: (1) Hyperglycemia (2) Uncontrolled diabetes mellitus (3) Cellulitis of toe of left foot Assessment & Plan: left great toe cellulitis and ulcer MRI noted plan for podiatry faustino isaac for diet local wound care will follow with recaidee abelva thank you podiatry / vascular input appreciated plan outpt angio surgical intervention after cont abx and local wound care picc in place iv abx outpt d/c planning There is markedly increased STIR signal and decreased T1 signal within the first distal phalanx. No other marrow signal abnormality is demonstrated. There is edema of the subcutaneous fat of the dorsum of the foot. There is circumferential edema of the soft tissues of the great toe. No discrete fluid collection to suggest drainable abscess demonstrated. Impression: Findings consistent with osteomyelitis of the first distal phalanx Dorsal soft tissue edema of the forefoot as well as circumferential edema of the great toe, most likely indicating cellulitis given stated clinical history. No evidence of drainable abscess Negative for evidence of significant peripheral arterial insufficiency on the right Monophasic but otherwise preserved waveforms on the left at the popliteal artery and distal levels. Suspect on the basis of decreased peripheral resistance due to hyperemia, but mild suprageniculate stenosis also possible. Abdominal aorta: There is minimal calcified atherosclerotic plaquing of the abdominal aorta. No significant aortic stenosis, aneurysm, or dissection. The celiac axis, superior mesenteric artery, and proximal branch vessels are patent and nonstenotic. Patent nonstenotic bilateral renal arteries. Patent inferior mesenteric artery. Right lower extremity: Patent and nonstenotic right common, external, and internal iliac arteries. Patent and nonstenotic right common femoral, profunda femoral, superficial femoral arteries. There is calcified atherosclerotic plaquing but no significant stenosis of the popliteal artery. The anterior tibial artery is patent, nonstenotic, reaches the ankle and forms a dorsalis pedis artery. The tibioperoneal trunk demonstrates calcified plaquing but no significant stenosis. It is patent and nonstenotic. The posterior tibial artery is patent, nonstenotic, reaches the ankle. The terminal plantar branch of the posterior tibial artery demonstrates a possibly significant stenosis as it passes the calcaneus, and appears to occlude distally. The peroneal artery occludes shortly beyond its origin and remains occluded over its length Left lower extremity: Patent and nonstenotic common, external, and internal iliac arteries. Patent and nonstenotic common femoral, is profunda femoral, superficial femoral arteries. There is focal stenosis, likely 50% or greater, of the mid popliteal artery at about the level of the knee joint. The anterior tibial artery demonstrates atherosclerotic calcification but no definite focal stenosis. The tibioperoneal trunk and posterior tibial arteries are patent, nonstenotic, the latter reaching well beyond the ankle. The peroneal artery is highly stenotic at its origin, occludes shortly beyond the origin, does not reconstitute. Nonvascular: The included lung bases demonstrate slight mosaic perfusion. The visualized portions of the liver are unremarkable. Unusual densities are seen around the gallbladder fossa. There is a fluid structure that appears to be the gallbladder, although this could represent a small postoperative biloma if there is been prior cholecystectomy. The bile ducts are nondilated. The pancreas, spleen, adrenals, kidneys are unremarkable. No retroperitoneal or mesenteric mass or adenopathy. No pelvic mass or adenopathy. The uterus and ovaries are unremarkable. The bladder is unremarkable. Considerable stool is seen throughout the colon. No small bowel distention. No free or loculated intraperitoneal gas or fluid is evident. The appendix is normal. No small bowel distention. There are degenerative changes of the lumbar spine. IMPRESSION: Stenosis, likely significant, of the mid left popliteal artery. This would likely be amenable to angioplasty Occlusion of the left peroneal artery. No other evidence of left lower extremity peripheral arterial insufficiency Occluded right peroneal artery. Probably occluded terminal branch of the right posterior tibial artery below the ankle. No other evidence of significant right lower extremity arterial insufficiency Somewhat unusual appearance to the gallbladder fossa, may reflect calcifications in or around the gallbladder wall, versus prior cholecystectomy and biloma. Correlate with surgical history [place] Copeland Oct 10, 2019 10:58
[2019-10-10 11:45] VITALS: BP 110/66
--- NOTE | 2019-10-10 12:59 | Infectious Diseases Prog Note ---
Assessment/Plan Assessment: L 1st toe cellulitis, and OM 1st distal phalanx -MRI L foot: Findings consistent with osteomyelitis of the first distal phalanx. Dorsal soft tissue edema of the forefoot as well as circumferential edema of the great toe, most likely indicating cellulitis given stated clinical history. No evidence of drainable abscess -L foot xray: NO ACUTE BONY ABNORMALITY. -wound cx S. MSSA -ESR 74, CRP 7.5 -v. duplex no DVT -a. duplex: Negative for evidence of significant peripheral arterial insufficiency on the right. Monophasic but otherwise preserved waveforms on the left at the popliteal artery and distal levels. Suspect on the basis of decreased peripheral resistance due to hyperemia, but mild suprageniculate stenosis also possible. 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 Will continue to follow along with you. Discussed with RN. Subjective Allergies: Coded Allergies: No Known Allergies (Unverified , 10/04/19) afebrile no leukocytosis Bcx NTD Objective Last 24 Hour Vital Signs Date Time Temp Pulse Resp B/P (MAP) Pulse Ox O2 Delivery O2 Flow Rate FiO2 10/10/19 11:45 97.9 70 20 110/66 (81) 97 10/10/19 09:00 Room Air 10/10/19 07:59 98.2 89 20 112/64 (80) 99 10/10/19 04:31 98.1 79 20 117/78 (91) 98 10/10/19 00:10 98.2 69 20 114/66 (82) 98 10/09/19 22:07 Room Air 10/09/19 20:00 98.7 74 18 138/74 (95) 97 10/09/19 16:00 98.4 75 20 115/97 (103) 97 Height (Feet): 5 Height (Inches): 8.00 Weight (Pounds): 178 General Appearance: no apparent distress, alert Head: normocephalic Eyes: bilateral eye normal inspection, bilateral eye PERRL Respiratory: chest non-tender, lungs clear, normal breath sounds, speaking full sentences Cardiovascular #1: no edema, tachycardia Gastrointestinal: normal bowel sounds, non tender, soft, non-distended, no guarding, no rebound Skin: other - L big toe swelling/erythema/induration Microbiology Date/Time Source Procedure Growth Status 10/07/19 16:50 Nasopharynx SARS-CoV-2 RdRp Gene Assay - Final Complete Laboratory Tests Test 10/10/19 04:30 White Blood Count 5.1 K/UL (4.8-10.8) Red Blood Count 4.23 M/UL (4.20-5.40) Hemoglobin 11.3 G/DL (12.0-16.0) L Hematocrit 35.1 % (37.0-47.0) L Mean Corpuscular Volume 83 FL (80-99) Mean Corpuscular Hemoglobin 26.8 PG (27.0-31.0) L Mean Corpuscular Hemoglobin Concent 32.3 G/DL (32.0-36.0) Red Cell Distribution Width 13.2 % (11.6-14.8) Platelet Count 315 K/UL (150-450) Mean Platelet Volume 6.6 FL (6.5-10.1) Neutrophils (%) (Auto) 47.3 % (45.0-75.0) Lymphocytes (%) (Auto) 40.7 % (20.0-45.0) Monocytes (%) (Auto) 9.0 % (1.0-10.0) Eosinophils (%) (Auto) 1.6 % (0.0-3.0) Basophils (%) (Auto) 1.4 % (0.0-2.0) Sodium Level 139 MMOL/L (136-145) Potassium Level 3.6 MMOL/L (3.5-5.1) Chloride Level 108 MMOL/L (98-107) H Carbon Dioxide Level 28 MMOL/L (21-32) Anion Gap 3 mmol/L (5-15) L Blood Urea Nitrogen 12 mg/dL (7-18) Creatinine 0.7 MG/DL (0.55-1.30) Estimat Glomerular Filtration Rate > 60 mL/min (>60) Glucose Level 157 MG/DL (74-106) H Calcium Level 8.7 MG/DL (8.5-10.1) Current Medications Medications (Trade) Dose Ordered Sig/Jerman Route PRN Reason Start Time Stop Time Status Last Admin Dose Admin Aspirin (ASA) 81 mg DAILY ORAL 10/08/19 11:30 11/22/19 11:29 10/10/19 09:45 Atorvastatin Calcium (Lipitor) 20 mg BEDTIME ORAL 10/08/19 21:00 01/06/20 20:59 10/09/19 20:17 Cefazolin Sodium 50 ml @ 100 mls/hr Q8HR IV 10/06/19 14:00 10/13/19 13:59 10/10/19 06:01 Chlorhexidine Gluconate (Kelli-Hex 2%) 1 applic DAILY@2000 TOPIC 10/07/19 20:00 01/05/20 19:59 10/09/19 20:17 Dextrose (Dextrose 50%) 25 ml Q30M PRN IV Hypoglycemia 10/05/19 07:15 01/03/20 07:14 Dextrose (Dextrose 50%) 50 ml Q30M PRN IV Hypoglycemia 10/05/19 07:15 01/03/20 07:14 Heparin Sodium (Porcine) (Heparin 5000 units/ml) 5,000 units EVERY 12 HOURS SUBQ 10/04/19 09:00 11/18/19 08:59 10/10/19 09:00 Insulin Aspart (NovoLOG) BEFORE MEALS AND HS SUBQ 10/04/19 11:30 01/02/20 11:29 10/10/19 12:09 Insulin Aspart (NovoLOG) 8 units NOVOTIAC SUBQ 10/05/19 11:50 01/03/20 11:49 10/10/19 12:11 Insulin Detemir (Levemir) 24 units DAILY SUBQ 10/04/19 09:00 01/02/20 08:59 10/10/19 09:49 Metronidazole (Flagyl) 500 mg Q8HR ORAL 10/04/19 14:00 10/11/19 13:59 10/10/19 06:01 Morphine Sulfate (Morphine Sulfate) 2 mg Q4H PRN IVP For Pain 10/04/19 06:45 10/11/19 06:44 Sodium Chloride 1,000 ml @ 75 mls/hr [id number] IV 10/04/19 07:44 11/03/19 07:43 10/09/19 22:27 Dionne Blake M.D. Oct 10, 2019 12:59
--- NOTE | 2019-10-10 13:02 | Hematology/Onc Progress Note ---
Assessment/Plan Assessment/Plan # Anemia of chronic disease due to underlying chronic medical issues, multifactorial v Gi bleed --> Anemia workup has been ordered, rule out gi bleed -->prn --> No evidence of hemolysis is noted, peripheral smear has been reviewed. --> Hgb goal >7. Transfuse prn. --> Epogen or iron at this time is not particularly indicated --> Medications have been reviewed --> hgb trend 11 # Hyperglycemia ICD Codes: R73.9 - Hyperglycemia, unspecified SNOMED: 71125199 # Uncontrolled diabetes mellitus ICD Codes: E11.65 - Type 2 diabetes mellitus with hyperglycemia SNOMED: 71356234, 166848988 Qualifiers: Qualified Codes: E13.65 - Other specified diabetes mellitus with hyperglycemia # Cellulitis of toe of left foot ICD Codes: L03.032 - Cellulitis of left toe SNOMED: 24797368 Status: stable, progressing Subjective Constitutional: Denies: no symptoms, chills, fever, malaise, weakness, other HEENT: Denies: no symptoms, eye pain, blurred vision, tearing, double vision, ear pain, ear discharge, nose pain, nose congestion, throat pain, throat swelling, mouth pain, mouth swelling, other Cardiovascular: Denies: no symptoms, chest pain, edema, irregular heart rate, lightheadedness, palpitations, syncope, other Gastrointestinal/Abdominal: Denies: no symptoms, abdomen distended, abdominal pain, black stools, tarry stools, blood in stool, constipated, diarrhea, difficulty swallowing, nausea, poor appetite, poor fluid intake, rectal bleeding , vomiting, other Endocrine: Denies: no symptoms, excessive sweating, flushing, intolerance to cold, intolerance to heat, increased hunger, increased thirst, increased urine, unexplained weight gain, unexplained weight loss, other Hematologic/Lymphatic: Denies: no symptoms, anemia, easy bleeding, easy bruising, adenopathy, other Allergies: Coded Allergies: No Known Allergies (Unverified , 10/04/19) Subjective 10/05 meds noted, covering for Barkley, no bleeding, cbc and bmp 10/06 labs noted, no bleeding, left hallux drainage from toe 10/07 with left toe osteo, further rx with podiatry, id and surg recs noted 10/08 meds reviewed, nad, no bleeding, no night sweats 10/09 no bleeding, no chills, no night sweats, hgb 11 Objective Objective Current Medications Medications (Trade) Dose Ordered Sig/Jerman Route PRN Reason Start Time Stop Time Status Last Admin Dose Admin Aspirin (ASA) 81 mg DAILY ORAL 10/08/19 11:30 11/22/19 11:29 10/10/19 09:45 Atorvastatin Calcium (Lipitor) 20 mg BEDTIME ORAL 10/08/19 21:00 01/06/20 20:59 10/09/19 20:17 Cefazolin Sodium 50 ml @ 100 mls/hr Q8HR IV 10/06/19 14:00 10/13/19 13:59 10/10/19 06:01 Chlorhexidine Gluconate (Kelli-Hex 2%) 1 applic DAILY@2000 TOPIC 10/07/19 20:00 01/05/20 19:59 10/09/19 20:17 Dextrose (Dextrose 50%) 25 ml Q30M PRN IV Hypoglycemia 10/05/19 07:15 01/03/20 07:14 Dextrose (Dextrose 50%) 50 ml Q30M PRN IV Hypoglycemia 10/05/19 07:15 01/03/20 07:14 Heparin Sodium (Porcine) (Heparin 5000 units/ml) 5,000 units EVERY 12 HOURS SUBQ 10/04/19 09:00 11/18/19 08:59 10/10/19 09:00 Insulin Aspart (NovoLOG) BEFORE MEALS AND HS SUBQ 10/04/19 11:30 01/02/20 11:29 10/10/19 12:09 Insulin Aspart (NovoLOG) 8 units NOVOTIAC SUBQ 10/05/19 11:50 01/03/20 11:49 10/10/19 12:11 Insulin Detemir (Levemir) 24 units DAILY SUBQ 10/04/19 09:00 01/02/20 08:59 10/10/19 09:49 Metronidazole (Flagyl) 500 mg Q8HR ORAL 10/04/19 14:00 10/11/19 13:59 10/10/19 06:01 Morphine Sulfate (Morphine Sulfate) 2 mg Q4H PRN IVP For Pain 10/04/19 06:45 10/11/19 06:44 Sodium Chloride 1,000 ml @ 75 mls/hr [id number] IV 10/04/19 07:44 11/03/19 07:43 10/09/19 22:27 Last 24 Hour Vital Signs Date Time Temp Pulse Resp B/P (MAP) Pulse Ox O2 Delivery O2 Flow Rate FiO2 10/10/19 11:45 97.9 70 20 110/66 (81) 97 10/10/19 09:00 Room Air 10/10/19 07:59 98.2 89 20 112/64 (80) 99 10/10/19 04:31 98.1 79 20 117/78 (91) 98 10/10/19 00:10 98.2 69 20 114/66 (82) 98 10/09/19 22:07 Room Air 10/09/19 20:00 98.7 74 18 138/74 (95) 97 10/09/19 16:00 98.4 75 20 115/97 (103) 97 10/09/19 12:00 98.1 72 20 114/69 (84) 98 10/09/19 09:00 Room Air 10/09/19 08:00 98.6 74 20 114/71 (85) 96 10/09/19 04:00 97.5 70 18 113/62 (79) 97 10/09/19 00:00 98.3 75 17 117/71 (86) 99 10/08/19 21:00 Room Air 10/08/19 20:00 98.1 77 18 121/77 (92) 99 10/08/19 16:00 97.9 77 17 117/68 (84) 98 Intake and Output 10/09/19 10/10/19 19:00 07:00 Intake Total 1680 ml 75 ml Balance 1680 ml 75 ml Intake Oral 1080 ml IV Total 600 ml 75 ml # Voids 3 Labs Test 10/08/19 05:58 10/08/19 16:13 10/08/19 21:22 10/09/19 07:20 POC Whole Blood Glucose 85 MG/DL (74-106) 155 MG/DL (74-106) White Blood Count 5.3 K/UL (4.8-10.8) Red Blood Count 4.51 M/UL (4.20-5.40) Hemoglobin 12.1 G/DL (12.0-16.0) Hematocrit 37.5 % (37.0-47.0) Mean Corpuscular Volume 83 FL (80-99) Mean Corpuscular Hemoglobin 26.8 PG (27.0-31.0) Mean Corpuscular Hemoglobin Concent 32.2 G/DL (32.0-36.0) Red Cell Distribution Width 13.4 % (11.6-14.8) Platelet Count 353 K/UL (150-450) Mean Platelet Volume 6.5 FL (6.5-10.1) Neutrophils (%) (Auto) 45.8 % (45.0-75.0) Lymphocytes (%) (Auto) 41.7 % (20.0-45.0) Monocytes (%) (Auto) 9.0 % (1.0-10.0) Eosinophils (%) (Auto) 2.6 % (0.0-3.0) Basophils (%) (Auto) 0.9 % (0.0-2.0) Sodium Level 140 MMOL/L (136-145) Potassium Level 4.0 MMOL/L (3.5-5.1) Chloride Level 104 MMOL/L (98-107) Carbon Dioxide Level 30 MMOL/L (21-32) Anion Gap 6 mmol/L (5-15) Blood Urea Nitrogen 10 mg/dL (7-18) Creatinine 0.7 MG/DL (0.55-1.30) Estimat Glomerular Filtration Rate > 60 mL/min (>60) Glucose Level 166 MG/DL (74-106) Calcium Level 9.5 MG/DL (8.5-10.1) Total Bilirubin 0.3 MG/DL (0.2-1.0) Aspartate Amino Transf (AST/SGOT) 58 U/L (15-37) Alanine Aminotransferase (ALT/SGPT) 53 U/L (12-78) Alkaline Phosphatase 64 U/L (46-116) Total Protein 7.4 G/DL (6.4-8.2) Albumin 2.9 G/DL (3.4-5.0) Globulin 4.5 g/dL Albumin/Globulin Ratio 0.6 (1.0-2.7) Test 10/10/19 04:30 White Blood Count 5.1 K/UL (4.8-10.8) Red Blood Count 4.23 M/UL (4.20-5.40) Hemoglobin 11.3 G/DL (12.0-16.0) Hematocrit 35.1 % (37.0-47.0) Mean Corpuscular Volume 83 FL (80-99) Mean Corpuscular Hemoglobin 26.8 PG (27.0-31.0) Mean Corpuscular Hemoglobin Concent 32.3 G/DL (32.0-36.0) Red Cell Distribution Width 13.2 % (11.6-14.8) Platelet Count 315 K/UL (150-450) Mean Platelet Volume 6.6 FL (6.5-10.1) Neutrophils (%) (Auto) 47.3 % (45.0-75.0) Lymphocytes (%) (Auto) 40.7 % (20.0-45.0) Monocytes (%) (Auto) 9.0 % (1.0-10.0) Eosinophils (%) (Auto) 1.6 % (0.0-3.0) Basophils (%) (Auto) 1.4 % (0.0-2.0) Sodium Level 139 MMOL/L (136-145) Potassium Level 3.6 MMOL/L (3.5-5.1) Chloride Level 108 MMOL/L (98-107) Carbon Dioxide Level 28 MMOL/L (21-32) Anion Gap 3 mmol/L (5-15) Blood Urea Nitrogen 12 mg/dL (7-18) Creatinine 0.7 MG/DL (0.55-1.30) Estimat Glomerular Filtration Rate > 60 mL/min (>60) Glucose Level 157 MG/DL (74-106) Calcium Level 8.7 MG/DL (8.5-10.1) Height (Feet): 5 Height (Inches): 8.00 Weight (Pounds): 178 Objective Dressing: dry Wound: clean Cardiovascular: RSR Respiratory: clear Abdomen: soft, non-tender, present bowel sounds Extremities: no edema, no tenderness, pulses, other Leoncio Campos MD Oct 10, 2019 13:02
--- NOTE | 2019-10-10 13:43 | General Progress Note ---
Assessment/Plan Problem List: (1) Hyperglycemia ICD Codes: R73.9 - Hyperglycemia, unspecified SNOMED: 37632861 (2) Uncontrolled diabetes mellitus ICD Codes: E11.65 - Type 2 diabetes mellitus with hyperglycemia SNOMED: 11850003, 170399206 Qualifiers: Qualified Codes: E13.65 - Other specified diabetes mellitus with hyperglycemia (3) Cellulitis of toe of left foot ICD Codes: L03.032 - Cellulitis of left toe SNOMED: 03573802 Status: stable, progressing Assessment/Plan: wound care abx bs control cbc bmp am dc if clear Subjective Constitutional: Reports: weakness Allergies: Coded Allergies: No Known Allergies (Unverified , 10/04/19) All Systems: reviewed and negative except above Subjective sleepy calm Objective Last 24 Hour Vital Signs Date Time Temp Pulse Resp B/P (MAP) Pulse Ox O2 Delivery O2 Flow Rate FiO2 10/10/19 11:45 97.9 70 20 110/66 (81) 97 10/10/19 09:00 Room Air 10/10/19 07:59 98.2 89 20 112/64 (80) 99 10/10/19 04:31 98.1 79 20 117/78 (91) 98 10/10/19 00:10 98.2 69 20 114/66 (82) 98 10/09/19 22:07 Room Air 10/09/19 20:00 98.7 74 18 138/74 (95) 97 10/09/19 16:00 98.4 75 20 115/97 (103) 97 Intake and Output 10/09/19 10/10/19 19:00 07:00 Intake Total 1680 ml 75 ml Balance 1680 ml 75 ml Intake Oral 1080 ml IV Total 600 ml 75 ml # Voids 3 Laboratory Tests 10/10/19 04:30: White Blood Count 5.1, Red Blood Count 4.23, Hemoglobin 11.3L, Hematocrit 35.1L , Mean Corpuscular Volume 83, Mean Corpuscular Hemoglobin 26.8L, Mean Corpuscular Hemoglobin Concent 32.3, Red Cell Distribution Width 13.2, Platelet Count 315, Mean Platelet Volume 6.6, Neutrophils (%) (Auto) 47.3, Lymphocytes (% ) (Auto) 40.7, Monocytes (%) (Auto) 9.0, Eosinophils (%) (Auto) 1.6, Basophils ( %) (Auto) 1.4, Sodium Level 139, Potassium Level 3.6, Chloride Level 108H, Carbon Dioxide Level 28, Anion Gap 3L, Blood Urea Nitrogen 12, Creatinine 0.7, Estimat Glomerular Filtration Rate > 60, Glucose Level 157H, Calcium Level 8.7 Height (Feet): 5 Height (Inches): 8.00 Weight (Pounds): 178 General Appearance: lethargic EENT: normal ENT inspection Neck: normal alignment Cardiovascular: normal peripheral pulses, normal rate, regular rhythm Respiratory/Chest: chest wall non-tender, lungs clear, normal breath sounds Abdomen: normal bowel sounds, non tender, soft Extremities: normal inspection Edema: no edema noted Arm (L), no edema noted Arm (R), no edema noted Leg (L), no edema noted Leg (R), no edema noted Pedal (L), no edema noted Pedal (R), no edema noted Generalized Neurologic: motor weakness Skin: normal pigmentation, warm/dry Hieu Barkley DO Oct 10, 2019 13:43
[2019-10-10] MEDS ORDERED: CEFAZOLIN2 GM/50 ML IV (14:53)
[2019-10-10 16:00] VITALS: BP_SYST 117; BP_SYST 127; BP_DIAS 76; BP_DIAS 87
[2019-10-10] MEDS ORDERED: KEFLEX250 MG ORAL (17:35)
--- NOTE | 2019-10-12 08:07 | Discharge Summary ---
Discharge Summary Discharge Summary _ DATE OF ADMISSION: 10/04/2019 DATE OF DISCHARGE: 10/10/2019 DISCHARGED BY: Dr. Barkley REASON FOR ADMISSION: 59 years old female with past medical history of diabetes mellitus, presented with left big toe pain and swelling. Patient reported injury to the foot few days ago. Patient reported drainage and pus. Pain reported as throbbing , nonradiating ,10 out of 10. Patient denied fevers , but reported chills. She denied chest pain or shortness of breath. Upon evaluation she was tachycardic with heart rate 121. Laboratory work-up revealed no leukocytosis ,hemoglobin 11.6 ,hematocrit 35.7, platelet count 260. Sodium 133. BUN 23, creatinine 1.1. Glucose 403. Anion gap 8. AST 16 , ALT 22. Albumin 3.6. Lactic acid 2.2. EKG revealed sinus tachycardia , no acute ischemic changes . Chest x-ray revealed no acute cardiopulmonary pathology. Physical exam demonstrated left big toe swelling with erythema and induration . Patient pancultured ,received empiric antibiotics. Rapid COVID in ED was negative. Patient subsequently admitted to medical surgical floor for further management. CONSULTANTS: vascular surgeon dr Bueno ID specialist Dr. Blake television newscast director Dr. De Jesus bituminous paving machine operator Dr. Caicedo net coordinator/oncologist Dr. Campos surgery [facility] COURSE: Patient admitted and started on IV fluids and empiric antibiotic as per ID specialist recommendation. Blood cultures were negative. Wound culture revealed Staph aureus. Repeated rapid COVID-19 was negative as well. No leukocytosis. ESR 74. MRI of the foot revealed findings consistent with osteomyelitis of the first distal phalanx. Venous duplex bilateral lower extremity revealed no evidence of acute DVT. Vascular was a non-smoker. CT angiogram with abdomen runoff with and without contrast revealed significant stenosis of the mid left popliteal artery , which could be amenable to angioplasty. Occlusion of the left peroneal artery. No other evidence of left lower extremity peripheral arterial insufficiency. Antiplatelet therapy and statin continued. Patient will need selective left leg angiogram for possible revascularization and left toe amputation if needed as per bituminous paving machine operator after angiogram. PICC line was inserted for antibiotics. Per ID specialist patient will need 6 weeks of treatment. Left foot x-ray revealed no acute bony trauma. Patient will need to continue antibiotic upon discharge to complete a total course of 6-week as recommended by ID specialist. Hemoglobin and hematocrit were closely monitored with goal to keep hemoglobin above 7. Hemoglobin and hematocrit remained at the baseline ; stable prior to discharge hemoglobin 11.3 ,hematocrit 35.1. Supportive care provided. Pain management was addressed as needed. DVT prophylaxis provided. Patient clinically stabilized and was ready for discharge home Wound care provided as per bituminous paving machine operator recommendation. Continue with wound care at the facility. Blood sugar was managed as per endocrine recommendation. Patient started on long-acting Levemir and short acting NovoLog before meals. Sliding scale implemented as needed. Metformin was discontinued due to lactic acidosis . Diabetic diet and diabetic teaching provided. Hypoglycemia protocol was in order. Blood sugar improved Patient will need to follow-up with as outpatient with vascular surgeon for angiogram. Possible surgical intervention for the great toe after angiogram. Patient clinically stabilized and was ready for discharge FINAL DIAGNOSIS Left great toe cellulitis Osteomyelitis of the Left first distal phalanx Calcific PAD Lactic acidosis Anemia of chronic disease Diabetes mellitus [id number] DISCHARGE MEDICATIONS: See Medication Reconciliation list. DISCHARGE INSTRUCTIONS: Patient was discharged home. Outpatient follow-up with the vascular surgeon for selective angiogram as recommended. I have been assigned to dictate discharge summary for this account. I was not involved in the patient's management. Zaria Oneal NP Oct 12, 2019 08:07
== END 2019-10-10 18:48 | disposition home or self-care (01) | DRG 344 ==
LOC: EMR 01:53 → 4E 02:20 → EDBEDREQ 03:14
PROC: 02HV33Z Insertion of Infusion Device into Superior Vena Cava, Percutaneous Approach (ICD-10-PCS; principal; 2019-10-09)
DX: E11.69 Type 2 diabetes mellitus with other specified complication (principal); M86.8X7 Other osteomyelitis, ankle and foot; E87.2 Acidosis; E11.621 Type 2 diabetes mellitus with foot ulcer; L03.032 Cellulitis of left toe; L97.529 Non-pressure chronic ulcer of other part of left foot with unspecified severity; Z79.4 Long term (current) use of insulin; E11.65 Type 2 diabetes mellitus with hyperglycemia; I73.89 Other specified peripheral vascular diseases; D63.8 Anemia in other chronic diseases classified elsewhere
CPT/HCPCS: 36415; 36569; 75635; 76937; 80048; 80053; 80202; 82962; 83605; 85025; 85651; 86140; 87040; 87070; 87181; 87205; 93005; 93306; 93925; 93970; 96365; 96375; 97803; 99291; J1815; J7030; S0077; S5561; U0002

== ENCOUNTER 2020-01-04 01:01 | Emergency (ER) | payer MEDICAID, OTHER ==
[~2020-01-04] VITALS: Ht 175.3 cm; Wt 79.4 kg
[~2020-01-04 01:01] MED LIST: CEFAZOLIN2 GM/50 ML IV; HUMALOG100 UNIT/3 SUBQ; KEFLEX250 MG ORAL; LANTUS SOL100 UNIT/1 SUBQ; METFORMIN500 MG/5 M PO
[2020-01-04] MEDS ORDERED: BACTRIM DS TAB1 EAC1 ORAL (01:42)
--- NOTE | 2020-01-04 01:42 | Emergency Room Report ---
History of Present Illness General Chief Complaint: Lower Extremity Injury Source: Patient Present Illness HPI This a 59-year-old female with a history of diabetes. She was admitted here in September for osteomyelitis of her left great toe. Patient presents with chief complaint of injury to that left toe. She says she bumped it and was bleeding for 10 minutes. Patient denies any fever chills pain or drainage. She was on antibiotics for 6 weeks after her osteomyelitis. She said since then her left toes been swollen. Worse with standing and working. Better with elevation. It never went down. She also had bypass surgery because of poor circulation. Minimal pain. No other complaint. Allergies: Coded Allergies: No Known Allergies (Unverified , 10/04/19) COVID-19 Screening Contact w/high risk pt: No Experienced COVID-19 symptoms?: No COVID-19 Testing performed BELT BUCKLE MAKER: No Patient History Past Medical History: see triage record, old chart reviewed, DM Past Surgical History: other Pertinent Family History: none Social History: Denies: smoking Now: No : 5 Para: 5 Immunizations: other Reviewed Nursing Documentation: PMH: Agreed; PSxH: Agreed Nursing Documentation-PMH Hx Cardiac Problems: No Hx Diabetes: Yes Hx Cancer: No Hx Gastrointestinal Problems: No Hx Neurological Problems: No Review of Systems Eye: Denies: eye pain, blurred vision ENT: Denies: ear pain, nose congestion, throat swelling Respiratory: Denies: cough, shortness of breath Cardiovascular: Denies: chest pain, palpitations Gastrointestinal: Denies: abdominal pain, diarrhea, nausea, vomiting Musculoskeletal: Denies: back pain, joint pain Skin: Denies: rash Neurological: Denies: headache, numbness Endocrine: Denies: increased thirst, increased urine Hematologic/Lymphatic: Denies: easy bruising All Other Systems: negative except mentioned in HPI Physical Exam Vital Signs Date Time Temp Pulse Resp B/P (MAP) Pulse Ox O2 Delivery O2 Flow Rate FiO2 01/04/20 01:06 98.2 101 16 110/68 (82) 96 Room Air Vitals normal Sp02 EP Interpretation: reviewed, normal General Appearance: well appearing, no apparent distress, alert Head: normocephalic, atraumatic Eyes: bilateral eye PERRL, bilateral eye EOMI ENT: hearing grossly normal, normal pharynx Neck: full range of motion, supple, no meningismus Respiratory: chest non-tender, lungs clear, normal breath sounds Cardiovascular #1: regular rate, rhythm, no murmur Gastrointestinal: normal bowel sounds, non tender, no mass, no organomegaly, no bruit, non-distended Musculoskeletal: back normal, normal range of motion, gait/station normal, other - Left great toe: She has uniform generalized edema to the toe. There is callus in ulceration on the pad. No active bleeding. She has onychomycosis. Psychiatric: mood/affect normal Medical Decision Making Diagnostic Impression: Primary Impression: Injury of toe on left foot Qualified Codes: S99.922A - Unspecified injury of left foot, initial encoun ter ER Course Patient with injury to her left toe. She has edema which is unchanged since her admission in September. This is probably secondary to poor circulation from before. There is no evidence of any new infection. Because of her diabetes however we will put her on antibiotics. No evidence of fracture. Will discharge home. Other X-Ray Diagnostic Results Other X-Ray Diagnostic Results : X-Ray ordered: Toe x-rays, left # of Views/Limited Vs Complete: 4 View Indication: Pain EP Interpretation: Yes Interpretation: no dislocation, no fractures, other - Tissue swelling soft Impression: No acute disease Electronically Signed by: Luis Felder MD Last Vital Signs Date Time Temp Pulse Resp B/P (MAP) Pulse Ox O2 Delivery O2 Flow Rate FiO2 01/04/20 01:06 98.2 101 16 110/68 (82) 96 Room Air Status: improved Disposition: HOME, SELF-CARE Condition: Stable Scripts Trimethoprim/Sulfamethoxazole 160/800* (BACTRIM DS TABLET*) 1 Each Tablet 1 TAB ORAL Q12H, #14 TAB 0 Refills Prov: Luis Felder MD 01/04/20 Referrals: CAROLYN JENSEN,REFERRING (PCP) Additional Instructions: Keep wound clean. Apply antibiotic ointment after cleaning with hydrogen peroxide. Follow-up with your doctor in 3 to 7 days for recheck. Return if worse. Luis Felder MD Jan 04, 2020 01:42
[2020-01-04 01:46] VITALS: BP 117/73
--- NOTE | 2020-01-04 15:39 | Diagnostic Imaging Report ---
INDICATION: Toe pain TECHNIQUE: XRAY Toes 3v L frontal and oblique views of the left toes COMPARISON: None FINDINGS: There is no acute fracture or dislocation. Joint spaces are maintained. Mild first metatarsophalangeal joint osteoarthrosis. IMPRESSION: No acute fracture or dislocation.
== END 2020-01-04 01:46 | disposition home or self-care (01) ==
LOC: EMR 01:30
DX: S99.922A Unspecified injury of left foot, initial encounter (principal); E11.9 Type 2 diabetes mellitus without complications; W22.8XXA Striking against or struck by other objects, initial encounter; Y93.9 Activity, unspecified; Y92.9 Unspecified place or not applicable; Z79.4 Long term (current) use of insulin
CPT/HCPCS: 73660; Z7502; 99283

== ENCOUNTER 2020-04-12 01:01 | Inpatient (IN) | payer OTHER ==
[~2020-04-12] VITALS: Ht 172.7 cm; Wt 81.6 kg
[~2020-04-12 01:01] MED LIST changes: +BACTRIM DS TAB1 EAC1 ORAL
--- NOTE | 2020-04-12 01:37 | Emergency Room Report ---
History of Present Illness General Chief Complaint: Edema Source: Patient Present Illness HPI 60-year-old female with history of peripheral vascular disease, diabetes, left first toe diabetic foot ulcer and osteomyelitis here with left first toe pain and swelling and pus drainage. Patient says her symptoms have been ongoing for several days and got much worse over the past 24 hours. Approximately 6 months ago the patient had osteomyelitis of the left first toe and was on IV antibiotics for 6 weeks. Said that she has not received any antibiotics since then. Denies fevers, chills, chest pain, palpitation, shortness of breath, back pain, abdominal pain, nausea, vomiting, diarrhea, dysuria. Allergies: Coded Allergies: No Known Allergies (Unverified , 04/12/20) COVID-19 Screening Contact w/high risk pt: No Experienced COVID-19 symptoms?: No COVID-19 Testing performed GLOBAL MARKETING SPECIALIST: No COVID-19 Screening: Negative COVID-19 COVID-19 Testing Source: [facility] Patient History Now: No Nursing Documentation-PMH Hx Cardiac Problems: No Hx Diabetes: Yes - DM foot Hx Cancer: No Hx Gastrointestinal Problems: No Hx Neurological Problems: No Review of Systems All Other Systems: negative except mentioned in HPI Physical Exam Vital Signs Date Time Temp Pulse Resp B/P (MAP) Pulse Ox O2 Delivery O2 Flow Rate FiO2 04/12/20 01:05 98.6 102 20 129/83 (98) 98 Room Air Sp02 EP Interpretation: reviewed, normal General Appearance: no apparent distress, alert, non-toxic Head: normocephalic, atraumatic Eyes: bilateral eye normal inspection, bilateral eye PERRL ENT: hearing grossly normal, normal pharynx, no angioedema, normal voice Neck: full range of motion, supple/symm/no masses Respiratory: chest non-tender, lungs clear, normal breath sounds, speaking full sentences Cardiovascular #1: regular rate, rhythm, no edema Cardiovascular #2: 2+ carotid (R), 2+ carotid (L), 2+ radial (R), 2+ radial (L), 2+ dorsalis pedis (R), 2+ dorsalis pedis (L) Gastrointestinal: normal bowel sounds, non tender, soft, non-distended, no guarding, no rebound Rectal: deferred Genitourinary: normal inspection, no CVA tenderness Musculoskeletal: back normal, normal range of motion, gait/station normal, non- tender, other - Left first toe edema. 2 cm open ulcer on distal left first toe with active blood and purulent drainage Neurologic: alert, motor strength/tone normal, oriented x3, sensory intact, responsive, speech normal Psychiatric: judgement/insight normal, memory normal, mood/affect normal, no suicidal/homicidal ideation Lymphatic: no adenopathy Medical Decision Making Diagnostic Impression: Primary Impression: Cellulitis Additional Impression: Osteomyelitis ER Course Laboratory Tests Test 04/12/20 01:45 White Blood Count 5.9 K/UL (4.8-10.8) Red Blood Count 4.22 M/UL (4.20-5.40) Hemoglobin 11.8 G/DL (12.0-16.0) L Hematocrit 35.2 % (37.0-47.0) L Mean Corpuscular Volume 84 FL (80-99) Mean Corpuscular Hemoglobin 28.0 PG (27.0-31.0) Mean Corpuscular Hemoglobin Concent 33.5 G/DL (32.0-36.0) Red Cell Distribution Width 14.5 % (11.6-14.8) Platelet Count 312 K/UL (150-450) Mean Platelet Volume 7.7 FL (6.5-10.1) Neutrophils (%) (Auto) 58.4 % (45.0-75.0) Lymphocytes (%) (Auto) 30.2 % (20.0-45.0) Monocytes (%) (Auto) 9.1 % (1.0-10.0) Eosinophils (%) (Auto) 0.5 % (0.0-3.0) Basophils (%) (Auto) 1.7 % (0.0-2.0) Sodium Level 140 MMOL/L (136-145) Potassium Level 4.3 MMOL/L (3.5-5.1) Chloride Level 104 MMOL/L (98-107) Carbon Dioxide Level 28 MMOL/L (21-32) Anion Gap 8 mmol/L (5-15) Blood Urea Nitrogen 18 mg/dL (7-18) Creatinine 0.7 MG/DL (0.55-1.30) Estimated Glomerular Filtration Rate > 60 mL/min (>60) Glucose Level 102 MG/DL (74-106) Lactic Acid Level 1.40 mmol/L (0.4-2.0) Calcium Level 10.1 MG/DL (8.5-10.1) Total Bilirubin 0.5 MG/DL (0.2-1.0) Aspartate Amino Transferase (AST) 21 U/L (15-37) Alanine Aminotransferase (ALT) 19 U/L (12-78) Alkaline Phosphatase 83 U/L (46-116) Total Protein 8.7 G/DL (6.4-8.2) H Albumin 3.4 G/DL (3.4-5.0) Globulin 5.3 g/dL Albumin/Globulin Ratio 0.6 (1.0-2.7) L X-ray left foot: Destruction of distal phalanx of left first toe. Concerning for osteomyelitis 60-year-old female with history of osteomyelitis of left first toe here with toe pain, swelling, purulent discharge. Patient had evidence of cellulitis on physical examination and x-ray showed evidence of osteomyelitis. Review of patient's records show that a wound culture grew staph aureus that was sensitive to vancomycin. Patient started on vancomycin in the emergency department. CBC and CMP were unremarkable. Blood cultures obtained and currently pending. Patient remained hemodynamically stable and neurovascularly intact. Admitted to [facility]. Last Vital Signs Date Time Temp Pulse Resp B/P (MAP) Pulse Ox O2 Delivery O2 Flow Rate FiO2 04/12/20 01:05 98.6 102 20 129/83 (98) 98 Room Air Referrals: [facility],REFERRING (PCP) Herber Santiago M.D. Apr 12, 2020 01:37
[2020-04-12] MEDS ORDERED: Vancomycin 1 GM in NS 275 ML IVPB ONE (01:45)
[2020-04-12 02:13] LABS: BASOPHILS % (AUTO) 1.7 % (0.0-2.0); EOSINOPHILS % (AUTO) 0.5 % (0.0-3.0); HEMATOCRIT 35.2 % (37.0-47.0); HEMOGLOBIN 11.8 G/DL (12.0-16.0); LYMPHOCYTES % (AUTO) 30.2 % (20.0-45.0); MEAN CORPUSCULAR VOLUME 84 FL (80-99); MONOCYTES % (AUTO) 9.1 % (1.0-10.0); NEUTROPHILS % (AUTO) 58.4 % (45.0-75.0); PLATELET COUNT 312 K/UL (150-450); RED BLOOD COUNT 4.22 M/UL (4.20-5.40); RED CELL DISTRIBUTION WIDTH 14.5 % (11.6-14.8); WHITE BLOOD COUNT 5.9 K/UL (4.8-10.8)
--- NOTE | 2020-04-12 02:16 | NUR ---
ED Nurse Note: Spoke with Brigid from [facility]. Pt's condition discussed. Brigid will call back if able to transfer pt or admit to this hospital.
--- NOTE | 2020-04-12 02:17 | NUR ---
ED Nurse Note: Patient came to the ED from home c/o left great toe wound and bilateral leg edema, left greater than right. Patient has had diabetes for 30 years. Patient reports being treated for left great toe wound one year ago, however the wound has never fully healed, c/o of bleeding in left great toe for the past two days. pain 5/10 today, pain upon present 0/10. Patient is alert orientedx4. Vital signs stable
[2020-04-12 02:23] VITALS: BP 129/83
[2020-04-12 02:23] LABS: ANION GAP 8 mmol/L (5-15); BLOOD UREA NITROGEN 18 mg/dL (7-18); CALCIUM 10.1 MG/DL (8.5-10.1); CARBON DIOXIDE 28 MMOL/L (21-32); CHLORIDE 104 MMOL/L (98-107); CREATININE 0.7 MG/DL (0.55-1.30); POTASSIUM 4.3 MMOL/L (3.5-5.1); SODIUM 140 MMOL/L (136-145)
[2020-04-12 02:28] LABS: ALANINE AMINOTRANSFERASE 19 U/L (12-78); ALBUMIN 3.4 G/DL (3.4-5.0); ALBUMIN/GLOBULIN RATIO 0.6 (1.0-2.7); ALKALINE PHOSPHATASE 83 U/L (46-116); ASPARTATE AMINO TRANSFERASE 21 U/L (15-37); BILIRUBIN,TOTAL 0.5 MG/DL (0.2-1.0)
[2020-04-12] MEDS ORDERED: DiphenhydrAMINE 50mg/ml Inj IVP ONE (02:30)
[2020-04-12] MEDS ORDERED: ASPIRIN81 MG ORAL (02:44)
[2020-04-12] MEDS ORDERED: PLAVIX75 MG ORAL (02:44)
--- NOTE | 2020-04-12 04:21 | NUR ---
ED nurse note:Report given link Addendum: 04/12/20 at 0423 by DARRICK ED nursing note: Report given to link HERNAN Arias pt transferred to floor via gurney accompanied by two ER techs. Patient in stable condition. Admission packet and belongings taken up with pt.
--- NOTE | 2020-04-12 05:07 | NUR ---
NURSE NOTES: Received patient from ED, via gurney, patient is from home, awake, alert, oriented x4, able to make her needs known, IV site in the left AC 20 g clean dry and intact. Patient can ambulate with some assistance. Belongings list is verified and signed for, oriented patient to the room, call light is within reach, bed is lowered, locked, alarm is on, picture of the infected great toe on the left foot is taken and uploaded. Left foot is elevated on few pillows due to swelling. Reached out to MD for admit orders.
--- NOTE | 2020-04-12 06:41 | NUR ---
NURSE NOTES: RN attempted another phone call to MD for admit orders, message left. CN was made aware.
--- NOTE | 2020-04-12 07:14 | NUR ---
NURSE HAND-OFF: Important Events on Shift: awaiting MD admit orders Patient Status: Diet: Pending Orders: Pending Results/Labs: Pending MD notification: Latest Vital Signs: Temperature 98.3 , Pulse 90 , B/P 130 /72 , Respiratory Rate 16 , O2 SAT 100 , Room Air, O2 Flow Rate . Vital Sign Comment: Latest Benavides Fall Score: 35 Fall Risk: Medium Risk Safety Measures: Call light Within Reach, Bed Alarm Zone 1, Side Rails Side Rails x1, Bed position Low and Locked. Fall Precautions: Report given to Arsh BECERRA
--- NOTE | 2020-04-12 07:15 | NUR ---
NURSE NOTES: Handoff received from Juana BECERRA. Patient is awake and alert, no signs of acute distress noted, breathing is even and unlabored on room air. Left AC 20 is intact and saline locked. Left foot dressing is clean and dry. Bed is low and locked, side rails u px2, kristen light is within reach. Per NOC RN, multiple messages left for Dr. Rg for admission orders. Awaiting call back.
[2020-04-12] MEDS ORDERED: HYDROcodone/Acetamin 5/325 tab ORAL PRN (07:45)
--- NOTE | 2020-04-12 07:50 | NUR ---
NURSE NOTES: Orders received from Dr. Rg, read back and carried out.
[2020-04-12 08:00] VITALS: BP 128/73
[2020-04-12] MEDS: Cefepime HCl 1 GM in D5W 55 ML IVPB SCH ×2 (08:55→21:19)
[2020-04-12] MEDS: Aspirin Baby 81mg ORAL SCH (08:55)
[2020-04-12] MEDS: Heparin 5000 units/ml inj SUBQ SCH ×3 (08:58→21:18)
--- NOTE | 2020-04-12 09:15 | NUR ---
NURSE NOTES: RN called pharmacy to ask if ASA, plavix and heparin were ok to administer together, pharmacy confirmed.
--- NOTE | 2020-04-12 10:25 | NUR ---
NURSE NOTES: Patient left for MRI in stable condition
[2020-04-12] MEDS ORDERED: Hydrogen Peroxide 473ml Bottle TOPIC SCH (11:00)
[2020-04-12] MEDS: NovoLOG Insulin Flexpen SUBQ SCH ×3 (11:36→21:18)
[2020-04-12 11:46] VITALS: BP 131/69
[2020-04-12] MEDS ORDERED: NovoLOG Insulin Flexpen SUBQ SCH (11:50)
--- NOTE | 2020-04-12 11:56 | NUR ---
CASE MANAGEMENT:REVIEW 60 YR OLD FEMALE WALKED INTO ER PMH: DM. DIABETIC FOOT ULCER SI: CELLULITIS. OSTEOMYELITIS 98.6 102 20 129/83 98% ON RA H/H-11.8/35.2 IS: IV VANCOMYCIN X1 IV BENADRYL X1 BLOOD CX : ADMITTED TO MED/SURG PLAN: MRI LT FOOT
[2020-04-12] MEDS: Vancomycin 1.5gm/300ml Premix IVPB SCH (12:23)
--- NOTE | 2020-04-12 13:51 | Diagnostic Imaging Report ---
EXAM: X-RAY XRAY Foot Complete L CLINICAL HISTORY: Great toe pain and ulcer. Evaluate for osteomyelitis. COMPARISON: None FINDINGS: Total of 3 views of the left foot were obtained. There is bony resorption noted involving the distal tuft of the great toe. Overlying skin defect and ulceration demonstrated. Findings consistent with focal osteomyelitis. The other bony appendages are intact. Joint spaces are unremarkable. IMPRESSION: OSTEOMYELITIS FIRST DISTAL PHALANX.
--- NOTE | 2020-04-12 14:01 | Diagnostic Imaging Report ---
EXAM: MRI MRI Left Foot WO Contrast HISTORY: Toe ulceration and pain. Evaluate for osteomyelitis. COMPARISON: Left foot x-ray 04/12/2020 TECHNIQUE: MR examination of the foot includes sagittal T1 and STIR, coronal T1 and STIR as well as axial proton density fat-suppressed T2 and STIR sequences. FINDINGS: Findings similar to that noted on the plain film exam. There is abnormal bony resorption noted of the first distal tuft. Marrow edema noted extensively throughout the first distal phalanx on both STIR and T1 images. Findings consistent with focal osteomyelitis. The other bony appendages otherwise appear intact and retain normal signal. Joint spaces appear well-maintained. There is soft tissue swelling noted at the dorsum of the forefoot to midfoot. No fluid collection or abscess identified. Tendinous and ligamentous structures of the forefoot and midfoot appear grossly unremarkable. IMPRESSION: OSTEOMYELITIS OF THE FIRST DISTAL PHALANX. GREAT TOE SOFT TISSUE ULCERATION. SOFT TISSUE EDEMA AT THE DORSUM OF THE FOREFOOT TO MIDFOOT. NO SOFT TISSUE FLUID COLLECTION OR ABSCESS.
--- NOTE | 2020-04-12 14:58 | Consultation ---
History of Present Illness General Date patient seen: Apr 12, 2020 Reason for Hospitalization: Edema Present Illness HPI This is a 60-year-old female known to me from prior admission with history of peripheral vascular disease, diabetes, left first toe diabetic foot ulcer and osteomyelitis here with left first toe pain and swelling and pus drainage. Patient says her symptoms have been ongoing for several days and got much worse over the past 24 hours. Approximately 6 months ago the patient had osteomyelitis of the left first toe and was on IV antibiotics for 6 weeks. Said that she has not received any antibiotics since then. Denies fevers, chills, chest pain, palpitation, shortness of breath, back pain, abdominal pain, nausea, vomiting, diarrhea, dysuria. surgery called to evaluate and assist with care. Allergies: Coded Allergies: No Known Allergies (Unverified , 04/12/20) COVID-19 Screening Contact w/high risk pt: No Experienced COVID-19 symptoms?: No Medication History Scheduled Aspirin* (Aspirin*), 81 MG ORAL DAILY, (Reported) Clopidogrel Bisulfate* (Plavix*), 75 MG ORAL DAILY, (Reported) Insulin Glargine (Lantus), 15 SUBQ BEDTIME, (Reported) Insulin Lispro (Humalog), 12 UNITS SUBQ AC, (Reported) Metformin HCl (Metformin HCl), 1,000 MG PO BID, (Reported) Discontinued Medications Trimethoprim/Sulfamethoxazole 160/800* (Bactrim Ds Tablet*), 1 TAB ORAL Q12H Discontinued Reason: Therapy completed Patient History History Provided By: Patient, Medical Record, PMD Healthcare decision maker Resuscitation status Advanced Directive on File Past Medical/Surgical History Past Medical/Surgical History: (1) Uncontrolled diabetes mellitus (2) Injury of toe on left foot (3) Cellulitis (4) Osteomyelitis Review of Systems Review of Symptoms General ROS: no weight loss or fever Psychological ROS: no depression or mood changes, no memory loss Ophthalmic ROS: no visual changes or eye irritation ENT ROS: no nasal congestion, hearing loss, dizziness Allergy and Immunology ROS: no allergic symptoms or urticaria Hematological and Lymphatic ROS: no swollen glands, unusual bleeding or bruising Endocrine ROS: no polyuria, polydipsia, weight changes, temperature intolerance Respiratory ROS: no cough, shortness of breath, or wheezing Cardiovascular ROS: no chest pain or dyspnea on exertion Gastrointestinal ROS: denies abdominal pain, bright red blood in stool. Musculoskeletal ROS: no myalgias or arthralgias Neurological ROS: no TIA or stroke symptoms Dermatological ROS: no new or changing skin lesions, rashes or pruritis Physical Exam Physical Exam General appearance: alert, cooperative, no distress, appears stated age Head: Normocephalic, without obvious abnormality, atraumatic Eyes: conjunctivae/corneas clear. PERRL, EOM's intact. Fundi benign Throat: Lips, mucosa, and tongue normal. Teeth and gums normal Neck: supple, symmetrical, trachea midline, no adenopathy, thyroid: not enlar ged, symmetric, no tenderness/mass/nodules, no carotid bruit and no JVD Lungs: clear to auscultation bilaterally Heart: regular rate and rhythm, S1, S2 normal, no murmur, click, rub or gallop Abdomen: soft, non-tender. Bowel sounds normal. No masses, no organomegaly Extremities: extremities see below Pulses: 2+ and symmetric Skin: Skin color, texture, turgor normal. No rashes or lesions Neurologic: Grossly normal Last 24 Hour Vital Signs Date Time Temp Pulse Resp B/P (MAP) Pulse Ox O2 Delivery O2 Flow Rate FiO2 04/12/20 11:46 97.9 84 20 131/69 (89) 99 04/12/20 09:00 Room Air 04/12/20 08:00 98.1 87 20 128/73 (91) 99 04/12/20 05:28 Room Air 04/12/20 04:20 98.3 90 16 130/72 100 Room Air 04/12/20 02:23 87 16 04/12/20 02:23 98.6 16 129/83 98 Room Air 04/12/20 01:05 98.6 102 20 129/83 (98) 98 Room Air Laboratory Tests Test 04/12/20 01:45 04/12/20 11:33 White Blood Count 5.9 K/UL (4.8-10.8) Red Blood Count 4.22 M/UL (4.20-5.40) Hemoglobin 11.8 G/DL (12.0-16.0) L Hematocrit 35.2 % (37.0-47.0) L Mean Corpuscular Volume 84 FL (80-99) Mean Corpuscular Hemoglobin 28.0 PG (27.0-31.0) Mean Corpuscular Hemoglobin Concent 33.5 G/DL (32.0-36.0) Red Cell Distribution Width 14.5 % (11.6-14.8) Platelet Count 312 K/UL (150-450) Mean Platelet Volume 7.7 FL (6.5-10.1) Neutrophils (%) (Auto) 58.4 % (45.0-75.0) Lymphocytes (%) (Auto) 30.2 % (20.0-45.0) Monocytes (%) (Auto) 9.1 % (1.0-10.0) Eosinophils (%) (Auto) 0.5 % (0.0-3.0) Basophils (%) (Auto) 1.7 % (0.0-2.0) Sodium Level 140 MMOL/L (136-145) Potassium Level 4.3 MMOL/L (3.5-5.1) Chloride Level 104 MMOL/L (98-107) Carbon Dioxide Level 28 MMOL/L (21-32) Anion Gap 8 mmol/L (5-15) Blood Urea Nitrogen 18 mg/dL (7-18) Creatinine 0.7 MG/DL (0.55-1.30) Estimat Glomerular Filtration Rate > 60 mL/min (>60) Glucose Level 102 MG/DL (74-106) Lactic Acid Level 1.40 mmol/L (0.4-2.0) Calcium Level 10.1 MG/DL (8.5-10.1) Total Bilirubin 0.5 MG/DL (0.2-1.0) Aspartate Amino Transf (AST/SGOT) 21 U/L (15-37) Alanine Aminotransferase (ALT/SGPT) 19 U/L (12-78) Alkaline Phosphatase 83 U/L (46-116) Total Protein 8.7 G/DL (6.4-8.2) H Albumin 3.4 G/DL (3.4-5.0) Globulin 5.3 g/dL Albumin/Globulin Ratio 0.6 (1.0-2.7) L POC Whole Blood Glucose 221 MG/DL (74-106) H Height (Feet): 5 Height (Inches): 8.00 Weight (Pounds): 180 Medications Current Medications Medications (Trade) Dose Ordered Sig/Jerman Route PRN Reason Start Time Stop Time Status Last Admin Dose Admin Acetaminophen (Tylenol) 650 mg Q6H PRN ORAL Temp >100.5 04/12/20 07:45 05/12/20 07:44 Acetaminophen (Tylenol) 650 mg Q6H PRN ORAL PAIN 1-3 04/12/20 08:00 05/12/20 07:59 Acetaminophen/ Hydrocodone Bitart ([place] 5/325) 1 tab Q6H PRN ORAL pain 4-10 04/12/20 07:45 04/19/20 07:44 Aspirin (ASA) 81 mg DAILY ORAL 04/12/20 09:00 05/27/20 08:59 04/12/20 08:55 Cefepime HCl 1 gm/ Dextrose 55 ml @ 110 mls/hr EVERY 12 HOURS IVPB 04/12/20 09:00 04/19/20 08:59 04/12/20 08:55 Clopidogrel Bisulfate (Plavix) 75 mg DAILY ORAL 04/12/20 09:00 05/12/20 08:59 04/12/20 08:55 Dextrose (Dextrose 50%) 25 ml Q30M PRN IV Hypoglycemia 04/12/20 07:45 07/11/20 07:44 Dextrose (Dextrose 50%) 50 ml Q30M PRN IV Hypoglycemia 04/12/20 07:45 07/11/20 07:44 Heparin Sodium (Porcine) (Heparin 5000 units/ml) 5,000 units EVERY 8 HOURS SUBQ 04/12/20 07:45 05/27/20 07:44 04/12/20 08:58 Insulin Aspart (NovoLOG) BEFORE MEALS AND HS SUBQ 04/12/20 11:30 07/11/20 11:29 04/12/20 11:36 Ondansetron HCl (Zofran) 4 mg Q6H PRN IVP Nausea & Vomiting 04/12/20 07:45 05/12/20 07:44 Vancomycin HCl 300 ml @ 150 mls/hr Q12HR@0100,1300 IVPB 04/12/20 13:00 04/17/20 12:59 04/12/20 12:23 Vancomycin HCl (Vanco pharmacy to dose) 1 ea DAILY PRN MISC Per rx protocol 04/12/20 07:45 05/12/20 07:44 Assessment/Plan Problem List: (1) Cellulitis Assessment & Plan: left great toe cellulitis and ulcer MRI noted plan for podiatry faustino okay for diet local wound care will follow with recs abx thank you podiatry / vascular input appreciated plan outpt angio surgical intervention after cont abx and local wound care prior on picc and iv abx cont abx id input There is markedly increased STIR signal and decreased T1 signal within the first distal phalanx. No other marrow signal abnormality is demonstrated. There is edema of the subcutaneous fat of the dorsum of the foot. There is circumferential edema of the soft tissues of the great toe. No discrete fluid collection to suggest drainable abscess demonstrated. Impression: Findings consistent with osteomyelitis of the first distal phalanx Dorsal soft tissue edema of the forefoot as well as circumferential edema of the great toe, most likely indicating cellulitis given stated clinical history. No evidence of drainable abscess Negative for evidence of significant peripheral arterial insufficiency on the right Monophasic but otherwise preserved waveforms on the left at the popliteal artery and distal levels. Suspect on the basis of decreased peripheral resistance due to hyperemia, but mild suprageniculate stenosis also possible. Abdominal aorta: There is minimal calcified atherosclerotic plaquing of the abdominal aorta. No significant aortic stenosis, aneurysm, or dissection. The celiac axis, superior mesenteric artery, and proximal branch vessels are patent and nonstenotic. Patent nonstenotic bilateral renal arteries. Patent inferior mesenteric artery. Right lower extremity: Patent and nonstenotic right common, external, and internal iliac arteries. Patent and nonstenotic right common femoral, profunda femoral, superficial femoral arteries. There is calcified atherosclerotic plaquing but no significant stenosis of the popliteal artery. The anterior tibial artery is patent, nonstenotic, reaches the ankle and forms a dorsalis pedis artery. The tibioperoneal trunk demonstrates calcified plaquing but no significant stenosis. It is patent and nonstenotic. The posterior tibial artery is patent, nonstenotic, reaches the ankle. The terminal plantar branch of the posterior tibial artery demonstrates a possibly significant stenosis as it passes the calcaneus, and appears to occlude distally. The peroneal artery occludes shortly beyond its origin and remains occluded over its length Left lower extremity: Patent and nonstenotic common, external, and internal iliac arteries. Patent and nonstenotic common femoral, is profunda femoral, superficial femoral arteries. There is focal stenosis, likely 50% or greater, of the mid popliteal artery at about the level of the knee joint. The anterior tibial artery demonstrates atherosclerotic calcification but no definite focal stenosis. The tibioperoneal trunk and posterior tibial arteries are patent, nonstenotic, the latter reaching well beyond the ankle. The peroneal artery is highly stenotic at its origin, occludes shortly beyond the origin, does not reconstitute. Nonvascular: The included lung bases demonstrate slight mosaic perfusion. The visualized portions of the liver are unremarkable. Unusual densities are seen around the gallbladder fossa. There is a fluid structure that appears to be the gallbladder, although this could represent a small postoperative biloma if there is been prior cholecystectomy. The bile ducts are nondilated. The pancreas, spleen, adrenals, kidneys are unremarkable. No retroperitoneal or mesenteric mass or adenopathy. No pelvic mass or adenopathy. The uterus and ovaries are unremarkable. The bladder is unremarkable. Considerable stool is seen throughout the colon. No small bowel distention. No free or loculated intraperitoneal gas or fluid is evident. The appendix is normal. No small bowel distention. There are degenerative changes of the lumbar spine. IMPRESSION: Stenosis, likely significant, of the mid left popliteal artery. This would likely be amenable to angioplasty Occlusion of the left peroneal artery. No other evidence of left lower extremity peripheral arterial insufficiency Occluded right peroneal artery. Probably occluded terminal branch of the right posterior tibial artery below the ankle. No other evidence of significant right lower extremity arterial insufficiency Somewhat unusual appearance to the gallbladder fossa, may reflect calcifications in or around the gallbladder wall, versus prior cholecystectomy and biloma. Correlate with surgical history ICD Codes: L03.90 - Cellulitis, unspecified SNOMED: 950946634 (2) Osteomyelitis ICD Codes: M86.9 - Osteomyelitis, unspecified SNOMED: 39391469 (3) Uncontrolled diabetes mellitus ICD Codes: E11.65 - Type 2 diabetes mellitus with hyperglycemia SNOMED: 49436008, 314232174 (4) Injury of toe on left foot ICD Codes: S99.922A - Unspecified injury of left foot, initial encounter SNOMED: 639517712, [id number] Francesco Copelandya Apr 12, 2020 14:58
--- NOTE | 2020-04-12 15:51 | NUR ---
INSURANCE CLINICALS/ REVIEW FAXED TO [facility] JOLENE FAX [phone] TELE [phone] ALYSSA- MATY Strange, EXT [phone]
[2020-04-12 16:00] VITALS: BP 130/70
--- NOTE | 2020-04-12 17:37 | NUR ---
NURSE NOTES:Pt admitted with Full thickness Ulcer tip of R 1st metatarsal with surrounding necrosis of metatarsal (L)1.5cm x (W)1.5cm x (D)0.4cm.NO odor or exudate noted. Tx.Plan: Cleanse with Hydrogen Peroxide . Cover with Gauze and wrap with Kerlix Daily and prn.
--- NOTE | 2020-04-12 18:29 | History & Physical ---
History and Physical History & Physicial Brayden Rg MD Apr 12, 2020 18:29
--- NOTE | 2020-04-12 18:32 | NUR ---
NURSE HAND-OFF: Important Events on Shift:[wound care] Patient Status: stable Diet: ccho high Pending Orders: Pending Results/Labs:cbc cmp mag phos esr Pending MD notification: Latest Vital Signs: Temperature 98.1 , Pulse 85 , B/P 130 /70 , Respiratory Rate 20 , O2 SAT 96 , Room Air, O2 Flow Rate . Vital Sign Comment: stable Latest Benavides Fall Score: 35 Fall Risk: Medium Risk Safety Measures: Call light Within Reach, Bed Alarm Zone 2, Side Rails Side Rails x2, Bed position Low and Locked. Fall Precautions: Patient Fall Education Report given to Karthik BECERRA.
--- NOTE | 2020-04-12 19:19 | NUR ---
NURSE NOTES: received pt and report from HERNAN Ortiz. pt alert and oriented x 4 with no acute s/s of distress and no co pain at them moment. dressing on great toe clean dry and intact. IV clean dry and intact and saline locked. plan of care discussed.
[2020-04-12 20:00] VITALS: BP 114/61
[2020-04-12 23:55] VITALS: BP 120/77
--- NOTE | 2020-04-13 00:01 | NUR ---
NURSE NOTES: pt is awake and alert x 4. no co pain, no acute distress. no co about the left great toe. vital signs are stable
[2020-04-13] MEDS: Vancomycin 1.5gm/300ml Premix IVPB SCH (00:21)
[2020-04-13 04:00] VITALS: BP 122/70
--- NOTE | 2020-04-13 04:00 | NUR ---
NURSE NOTES: vitals stable, no pain, no acute distress observed. Dressing on L great toe clean dry and intact, no drainage seen.
[2020-04-13] MEDS: Heparin 5000 units/ml inj SUBQ SCH ×3 (05:40→21:28)
[2020-04-13] MEDS: NovoLOG Insulin Flexpen SUBQ SCH ×4 (05:40→21:28)
[2020-04-13 06:43] LABS: BASOPHILS % (AUTO) 0.8 % (0.0-2.0); EOSINOPHILS % (AUTO) 1.2 % (0.0-3.0); HEMATOCRIT 33.8 % (37.0-47.0); HEMOGLOBIN 11.3 G/DL (12.0-16.0); LYMPHOCYTES % (AUTO) 44.8 % (20.0-45.0); MEAN CORPUSCULAR VOLUME 83 FL (80-99); MONOCYTES % (AUTO) 9.9 % (1.0-10.0); NEUTROPHILS % (AUTO) 43.3 % (45.0-75.0); PLATELET COUNT 313 K/UL (150-450); RED BLOOD COUNT 4.07 M/UL (4.20-5.40); WHITE BLOOD COUNT 4.3 K/UL (4.8-10.8)
[2020-04-13 06:59] LABS: ALANINE AMINOTRANSFERASE 16 U/L (12-78); ALBUMIN 2.9 G/DL (3.4-5.0); ALBUMIN/GLOBULIN RATIO 0.6 (1.0-2.7); ALKALINE PHOSPHATASE 70 U/L (46-116); ANION GAP 7 mmol/L (5-15); ASPARTATE AMINO TRANSFERASE 14 U/L (15-37); BILIRUBIN,TOTAL 0.4 MG/DL (0.2-1.0); BLOOD UREA NITROGEN 12 mg/dL (7-18); CALCIUM 10.1 MG/DL (8.5-10.1); CARBON DIOXIDE 30 MMOL/L (21-32); CHLORIDE 103 MMOL/L (98-107); CREATININE 0.7 MG/DL (0.55-1.30); PHOSPHORUS 3.9 MG/DL (2.5-4.9); POTASSIUM 4.1 MMOL/L (3.5-5.1); SODIUM 140 MMOL/L (136-145)
--- NOTE | 2020-04-13 07:08 | NUR ---
NURSE HAND-OFF: Important Events on Shift:NA Patient Status: stable Diet: consistent carb Pending Orders: NA Pending Results/Labs:NA Pending MD notification:NA Latest Vital Signs: Temperature 98.2 , Pulse 79 , B/P 122 /70 , Respiratory Rate 16 , O2 SAT 99 , Room Air, O2 Flow Rate . Vital Sign Comment: stable through the shift Latest Benavides Fall Score: 35 Fall Risk: Medium Risk Safety Measures: Call light Within Reach, Bed Alarm Zone 2, Side Rails Side Rails x2, Bed position Low and Locked. Fall Precautions: Patient Fall Education Report given to HERNAN Lopez.
--- NOTE | 2020-04-13 07:23 | NUR ---
NURSE NOTES: Received pt from Karthik. RN. pt was resting completely, no c/o pain, Lt big toe dressing was clean and dry. call light w/in reach.
[2020-04-13 08:00] VITALS: BP 96/68
[2020-04-13] MEDS: Aspirin Baby 81mg ORAL SCH (08:19)
[2020-04-13] MEDS: Cefepime HCl 1 GM in D5W 55 ML IVPB SCH (08:19)
--- NOTE | 2020-04-13 09:37 | Consultation ---
History of Present Illness General Date patient seen: Apr 13, 2020 Time patient seen: 11:25 Chief Complaint: Edema Referring physician: Dr. Rg Reason for Consultation: OM Present Illness HPI 60yo F w/ PVD, DM2, L first toe diabetic foot ulcer and OM, who p/w L first toe pain, swelling and draining pus. ID c/s given OM. Pt reports she has h/o OM in same L first toe in September of last year, came to this hospital, notes show MSSA OM and received 6 wks of ancef. Reports he toe totally healed after this, wasn't having any issues. 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 No fevers/chills or systemic s/sx of infection, just toe issues. Had been trying topical therapies and hydrogen peroxide at home without improvement. Always keeps her toe wrapped. Lives with her daughter, no sick contacts Works as boiler helper, on her feet No COVID contact, no COVID sx, never had it before No allergies to abx No tobacco, drugs or EtOH use Cat at home, but doesn't get near her toe and her toe is always wrapped Allergies: Coded Allergies: No Known Allergies (Unverified , 04/12/20) Medication History Scheduled Aspirin* (Aspirin*), 81 MG ORAL DAILY, (Reported) Clopidogrel Bisulfate* (Plavix*), 75 MG ORAL DAILY, (Reported) Insulin Glargine (Lantus), 15 SUBQ BEDTIME, (Reported) Insulin Lispro (Humalog), 12 UNITS SUBQ AC, (Reported) Metformin HCl (Metformin HCl), 1,000 MG PO BID, (Reported) Discontinued Medications Trimethoprim/Sulfamethoxazole 160/800* (Bactrim Ds Tablet*), 1 TAB ORAL Q12H Discontinued Reason: Therapy completed Patient History Healthcare decision maker Resuscitation status Advanced Directive on File Review of Systems ROS Narrative 10-point ROS neg except as noted in HPI Physical Exam Physical Exam Narrative Gen: NAD HEENT: NCAT, EOMI, PERRL Pulm: BL chest rise on RA, non-labored Abd: Non-distended Ext: No c/c/e except for L first toe w/ distal swelling and distal dry ulceration wo drainage, TTP Skin: No visible rashes Neuro: Awake, alert, interactive. Intact sensation in LLE Last 24 Hour Vital Signs Date Time Temp Pulse Resp B/P (MAP) Pulse Ox O2 Delivery O2 Flow Rate FiO2 04/13/20 07:31 Room Air 04/13/20 04:00 98.2 79 16 122/70 (87) 99 04/12/20 23:55 98.4 88 17 120/77 (91) 99 04/12/20 20:00 98.1 75 16 114/61 (78) 100 04/12/20 19:38 Room Air 04/12/20 16:00 98.1 85 130/70 (90) 96 04/12/20 11:46 97.9 84 20 131/69 (89) 99 Intake and Output 04/12/20 04/13/20 19:00 07:00 Intake Total 990 ml 500 ml Balance 990 ml 500 ml Intake Oral 990 ml 500 ml # Voids 3 Laboratory Tests Test 04/12/20 11:33 04/12/20 16:48 04/12/20 20:50 04/13/20 05:00 POC Whole Blood Glucose 221 MG/DL (74-106) H 312 MG/DL (74-106) H 211 MG/DL (74-106) H White Blood Count 4.3 K/UL (4.8-10.8) L Red Blood Count 4.07 M/UL (4.20-5.40) L Hemoglobin 11.3 G/DL (12.0-16.0) L Hematocrit 33.8 % (37.0-47.0) L Mean Corpuscular Volume 83 FL (80-99) Mean Corpuscular Hemoglobin 27.8 PG (27.0-31.0) Mean Corpuscular Hemoglobin Concent 33.5 G/DL (32.0-36.0) Red Cell Distribution Width 13.0 % (11.6-14.8) Platelet Count 313 K/UL (150-450) Mean Platelet Volume 7.1 FL (6.5-10.1) Neutrophils (%) (Auto) 43.3 % (45.0-75.0) L Lymphocytes (%) (Auto) 44.8 % (20.0-45.0) Monocytes (%) (Auto) 9.9 % (1.0-10.0) Eosinophils (%) (Auto) 1.2 % (0.0-3.0) Basophils (%) (Auto) 0.8 % (0.0-2.0) Erythrocyte Sedimentation Rate 40 MM/HR (0-30) H Sodium Level 140 MMOL/L (136-145) Potassium Level 4.1 MMOL/L (3.5-5.1) Chloride Level 103 MMOL/L (98-107) Carbon Dioxide Level 30 MMOL/L (21-32) Anion Gap 7 mmol/L (5-15) Blood Urea Nitrogen 12 mg/dL (7-18) Creatinine 0.7 MG/DL (0.55-1.30) Estimat Glomerular Filtration Rate > 60 mL/min (>60) Glucose Level 128 MG/DL (74-106) H Calcium Level 10.1 MG/DL (8.5-10.1) Phosphorus Level 3.9 MG/DL (2.5-4.9) Magnesium Level 1.7 MG/DL (1.8-2.4) L Total Bilirubin 0.4 MG/DL (0.2-1.0) Aspartate Amino Transf (AST/SGOT) 14 U/L (15-37) L Alanine Aminotransferase (ALT/SGPT) 16 U/L (12-78) Alkaline Phosphatase 70 U/L (46-116) Total Protein 7.8 G/DL (6.4-8.2) Albumin 2.9 G/DL (3.4-5.0) L Globulin 4.9 g/dL Albumin/Globulin Ratio 0.6 (1.0-2.7) L Test 04/13/20 05:22 POC Whole Blood Glucose 126 MG/DL (74-106) H Height (Feet): 5 Height (Inches): 8.00 Weight (Pounds): 180 Medications Current Medications Medications (Trade) Dose Ordered Sig/Jerman Route PRN Reason Start Time Stop Time Status Last Admin Dose Admin Acetaminophen (Tylenol) 650 mg Q6H PRN ORAL Temp >100.5 04/12/20 07:45 05/12/20 07:44 Acetaminophen (Tylenol) 650 mg Q6H PRN ORAL PAIN 1-3 04/12/20 08:00 05/12/20 07:59 Acetaminophen/ Hydrocodone Bitart ([place] 5/325) 1 tab Q6H PRN ORAL pain 4-10 04/12/20 07:45 04/19/20 07:44 Aspirin (ASA) 81 mg DAILY ORAL 04/12/20 09:00 05/27/20 08:59 04/13/20 08:19 Cefepime HCl 1 gm/ Dextrose 55 ml @ 110 mls/hr EVERY 12 HOURS IVPB 04/12/20 09:00 04/19/20 08:59 04/13/20 08:19 Clopidogrel Bisulfate (Plavix) 75 mg DAILY ORAL 04/12/20 09:00 05/12/20 08:59 04/13/20 08:18 Dextrose (Dextrose 50%) 25 ml Q30M PRN IV Hypoglycemia 04/12/20 07:45 07/11/20 07:44 Dextrose (Dextrose 50%) 50 ml Q30M PRN IV Hypoglycemia 04/12/20 07:45 07/11/20 07:44 Heparin Sodium (Porcine) (Heparin 5000 units/ml) 5,000 units EVERY 8 HOURS SUBQ 04/12/20 07:45 05/27/20 07:44 04/13/20 05:40 Insulin Aspart (NovoLOG) BEFORE MEALS AND HS SUBQ 04/12/20 11:30 07/11/20 11:29 04/12/20 21:18 Ondansetron HCl (Zofran) 4 mg Q6H PRN IVP Nausea & Vomiting 04/12/20 07:45 05/12/20 07:44 Vancomycin HCl 300 ml @ 150 mls/hr Q12HR@0100,1300 IVPB 04/12/20 13:00 04/17/20 12:59 04/13/20 00:21 Vancomycin HCl (Vanco pharmacy to dose) 1 ea DAILY PRN MISC Per rx protocol 04/12/20 07:45 05/12/20 07:44 Assessment/Plan Assessment/Plan: 60yo F with: L first toe acute on chronic osteomyelitis H/o MSSA OM of L first toe H/o OM in this toe, s/p 6 wks of IV cefazolin about 6 mo precinct captain, no abx since Afebrile Normal WBC 04/12 BCx p MRI L foot: OSTEOMYELITIS OF THE FIRST DISTAL PHALANX. GREAT TOE SOFT TISSUE ULCERATION. SOFT TISSUE EDEMA AT THE DORSUM OF THE FOREFOOT TO MIDFOOT. NO SOFT TISSUE FLUID COLLECTION OR ABSCESS. 04/13 ESR p, CRP 2.8 R/o COVID given pandemic, low s/f it in this patient 04/13 COVID PCR p CXR: No acute process PMH: PVD DM2 Plan: Stop cefepime/vanco Start cefazolin 2g IV q8hrs to target prior known MSSA OM Wound cx - unable to obtain given dry ulcer, no drainage ESR, CRP HIV screen MRSA nares COVID PCR CXR screen Monitor CBC/CMP Monitor temp curve, hemodynamics Monitor resp status D/w RN Thank you for this consult. [facility] will continue to follow. Viktoria Maurice M.D. Apr 13, 2020 09:36
--- NOTE | 2020-04-13 10:00 | NUR ---
NURSE NOTES: changed left side of big toe, no drainage noted, Dr. Maurice cancelled culture.
--- NOTE | 2020-04-13 10:16 | Diagnostic Imaging Report ---
EXAM: XR Chest, 1 View CLINICAL HISTORY: INFECT TECHNIQUE: Frontal view of the chest. COMPARISON: None FINDINGS: Hardware: None. Lungs/pleura: Mild elevation or eventration of the right hemidiaphragm. No focal consolidation. No pleural effusion or pneumothorax. Heart/mediastinum: Normal. No cardiomegaly. Soft tissues: Unremarkable. Bones: No acute fracture. Degenerative changes of the spine. Upper abdomen: Normal. IMPRESSION: No acute disease identified.
--- NOTE | 2020-04-13 11:47 | Surgery Progress Note ---
Surgery Progress Note Subjective Additional Comments no acute events comfortable stable dressings noa ruiz MRI noted Objective Last 24 Hour Vital Signs Date Time Temp Pulse Resp B/P (MAP) Pulse Ox O2 Delivery O2 Flow Rate FiO2 04/13/20 08:00 98.9 93 16 96/68 (77) 99 04/13/20 07:31 Room Air 04/13/20 04:00 98.2 79 16 122/70 (87) 99 04/12/20 23:55 98.4 88 17 120/77 (91) 99 04/12/20 20:00 98.1 75 16 114/61 (78) 100 04/12/20 19:38 Room Air 04/12/20 16:00 98.1 85 130/70 (90) 96 I&O l Intake and Output 04/12/20 04/13/20 19:00 07:00 Intake Total 990 ml 500 ml Balance 990 ml 500 ml Intake Oral 990 ml 500 ml # Voids 3 Dressing: saturated Cardiovascular: RSR Respiratory: clear Abdomen: soft, non-tender, present bowel sounds Extremities: edema, tenderness, cyanosis, other Laboratory Tests Test 04/12/20 16:48 04/12/20 20:50 04/13/20 05:00 04/13/20 05:22 POC Whole Blood Glucose 312 MG/DL (74-106) H 211 MG/DL (74-106) H 126 MG/DL (74-106) H White Blood Count 4.3 K/UL (4.8-10.8) L Red Blood Count 4.07 M/UL (4.20-5.40) L Hemoglobin 11.3 G/DL (12.0-16.0) L Hematocrit 33.8 % (37.0-47.0) L Mean Corpuscular Volume 83 FL (80-99) Mean Corpuscular Hemoglobin 27.8 PG (27.0-31.0) Mean Corpuscular Hemoglobin Concent 33.5 G/DL (32.0-36.0) Red Cell Distribution Width 13.0 % (11.6-14.8) Platelet Count 313 K/UL (150-450) Mean Platelet Volume 7.1 FL (6.5-10.1) Neutrophils (%) (Auto) 43.3 % (45.0-75.0) L Lymphocytes (%) (Auto) 44.8 % (20.0-45.0) Monocytes (%) (Auto) 9.9 % (1.0-10.0) Eosinophils (%) (Auto) 1.2 % (0.0-3.0) Basophils (%) (Auto) 0.8 % (0.0-2.0) Erythrocyte Sedimentation Rate 40 MM/HR (0-30) H Sodium Level 140 MMOL/L (136-145) Potassium Level 4.1 MMOL/L (3.5-5.1) Chloride Level 103 MMOL/L (98-107) Carbon Dioxide Level 30 MMOL/L (21-32) Anion Gap 7 mmol/L (5-15) Blood Urea Nitrogen 12 mg/dL (7-18) Creatinine 0.7 MG/DL (0.55-1.30) Estimat Glomerular Filtration Rate > 60 mL/min (>60) Glucose Level 128 MG/DL (74-106) H Calcium Level 10.1 MG/DL (8.5-10.1) Phosphorus Level 3.9 MG/DL (2.5-4.9) Magnesium Level 1.7 MG/DL (1.8-2.4) L Total Bilirubin 0.4 MG/DL (0.2-1.0) Aspartate Amino Transf (AST/SGOT) 14 U/L (15-37) L Alanine Aminotransferase (ALT/SGPT) 16 U/L (12-78) Alkaline Phosphatase 70 U/L (46-116) C-Reactive Protein, Quantitative 2.8 mg/dL (0.00-0.90) H Total Protein 7.8 G/DL (6.4-8.2) Albumin 2.9 G/DL (3.4-5.0) L Globulin 4.9 g/dL Albumin/Globulin Ratio 0.6 (1.0-2.7) L HIV (1&2) Antibody Rapid Pending Plan Problems: (1) Cellulitis Assessment & Plan: left great toe cellulitis and ulcer MRI noted plan for podiatry faustino isaac for diet local wound care will follow with recaidee tucker thank you Pt admitted with Full thickness Ulcer tip of R 1st metatarsal with surrounding necrosis of metatarsal (L)1.5cm x (W)1.5cm x (D)0.4cm.NO odor or exudate noted. Tx.Plan: Cleanse with Hydrogen Peroxide . Cover with Gauze and wrap with Kerlix Daily and prn. podiatry / vascular input appreciated plan outpt angio surgical intervention after cont abx and local wound care prior on picc and iv abx cont abx id input There is markedly increased STIR signal and decreased T1 signal within the first distal phalanx. No other marrow signal abnormality is demonstrated. There is edema of the subcutaneous fat of the dorsum of the foot. There is circumferential edema of the soft tissues of the great toe. No discrete fluid collection to suggest drainable abscess demonstrated. Impression: Findings consistent with osteomyelitis of the first distal phalanx Dorsal soft tissue edema of the forefoot as well as circumferential edema of the great toe, most likely indicating cellulitis given stated clinical history. No evidence of drainable abscess Negative for evidence of significant peripheral arterial insufficiency on the right Monophasic but otherwise preserved waveforms on the left at the popliteal artery and distal levels. Suspect on the basis of decreased peripheral resistance due to hyperemia, but mild suprageniculate stenosis also possible. Abdominal aorta: There is minimal calcified atherosclerotic plaquing of the abdominal aorta. No significant aortic stenosis, aneurysm, or dissection. The celiac axis, superior mesenteric artery, and proximal branch vessels are patent and nonstenotic. Patent nonstenotic bilateral renal arteries. Patent inferior mesenteric artery. Right lower extremity: Patent and nonstenotic right common, external, and internal iliac arteries. Patent and nonstenotic right common femoral, profunda femoral, superficial femoral arteries. There is calcified atherosclerotic plaquing but no significant stenosis of the popliteal artery. The anterior tibial artery is patent, nonstenotic, reaches the ankle and forms a dorsalis pedis artery. The tibioperoneal trunk demonstrates calcified plaquing but no significant stenosis. It is patent and nonstenotic. The posterior tibial artery is patent, nonstenotic, reaches the ankle. The terminal plantar branch of the posterior tibial artery demonstrates a possibly significant stenosis as it passes the calcaneus, and appears to occlude distally. The peroneal artery occludes shortly beyond its origin and remains occluded over its length Left lower extremity: Patent and nonstenotic common, external, and internal iliac arteries. Patent and nonstenotic common femoral, is profunda femoral, superficial femoral arteries. There is focal stenosis, likely 50% or greater, of the mid popliteal artery at about the level of the knee joint. The anterior tibial artery demonstrates atherosclerotic calcification but no definite focal stenosis. The tibioperoneal trunk and posterior tibial arteries are patent, nonstenotic, the latter reaching well beyond the ankle. The peroneal artery is highly stenotic at its origin, occludes shortly beyond the origin, does not reconstitute. Nonvascular: The included lung bases demonstrate slight mosaic perfusion. The visualized portions of the liver are unremarkable. Unusual densities are seen around the gallbladder fossa. There is a fluid structure that appears to be the gallbladder, although this could represent a small postoperative biloma if there is been prior cholecystectomy. The bile ducts are nondilated. The pancreas, spleen, adrenals, kidneys are unremarkable. No retroperitoneal or mesenteric mass or adenopathy. No pelvic mass or adenopathy. The uterus and ovaries are unremarkable. The bladder is unremarkable. Considerable stool is seen throughout the colon. No small bowel distention. No free or loculated intraperitoneal gas or fluid is evident. The appendix is normal. No small bowel distention. There are degenerative changes of the lumbar spine. IMPRESSION: Stenosis, likely significant, of the mid left popliteal artery. This would likely be amenable to angioplasty Occlusion of the left peroneal artery. No other evidence of left lower extremity peripheral arterial insufficiency Occluded right peroneal artery. Probably occluded terminal branch of the right posterior tibial artery below the ankle. No other evidence of significant right lower extremity arterial insufficiency Somewhat unusual appearance to the gallbladder fossa, may reflect calcifications in or around the gallbladder wall, versus prior cholecystectomy and biloma. Correlate with surgical history (2) Osteomyelitis Assessment & Plan: Findings similar to that noted on the plain film exam. There is abnormal bony resorption noted of the first distal tuft. Marrow edema noted extensively throughout the first distal phalanx on both STIR and T1 images. Findings consistent with focal osteomyelitis. The other bony appendages otherwise appear intact and retain normal signal. Joint spaces appear well-maintained. There is soft tissue swelling noted at the dorsum of the forefoot to midfoot. No fluid collection or abscess identified. Tendinous and ligamentous structures of the forefoot and midfoot appear grossly unremarkable. IMPRESSION: OSTEOMYELITIS OF THE FIRST DISTAL PHALANX. GREAT TOE SOFT TISSUE ULCERATION. SOFT TISSUE EDEMA AT THE DORSUM OF THE FOREFOOT TO MIDFOOT. NO SOFT TISSUE FLUID COLLECTION OR ABSCESS. (3) Uncontrolled diabetes mellitus (4) Injury of toe on left foot Washington Copeland Apr 13, 2020 11:47
[2020-04-13] MEDS: ceFAZolin 2gm/50ml Premix 50 ML IVPB SCH ×2 (11:54→20:22)
[2020-04-13 12:00] VITALS: BP 116/66
--- NOTE | 2020-04-13 13:45 | NUR ---
INSURANCE CLINICALS FAXED TO [facility] FAX [phone] TELE [phone] ALYSSA- MATY Strange, SOHAM 193
[2020-04-13 16:00] VITALS: BP 105/71
--- NOTE | 2020-04-13 16:48 | Internal Med Progress Note ---
Subjective Date of Service: Apr 13, 2020 Physician Name Atif Hogue Attending Physician Brayden Rg MD Current Medications Medications (Trade) Dose Ordered Sig/Jerman Route PRN Reason Start Time Stop Time Status Last Admin Dose Admin Acetaminophen (Tylenol) 650 mg Q6H PRN ORAL Temp >100.5 04/12/20 07:45 05/12/20 07:44 Acetaminophen (Tylenol) 650 mg Q6H PRN ORAL PAIN 1-3 04/12/20 08:00 05/12/20 07:59 Acetaminophen/ Hydrocodone Bitart ([place] 5/325) 1 tab Q6H PRN ORAL pain 4-10 04/12/20 07:45 04/19/20 07:44 Aspirin (ASA) 81 mg DAILY ORAL 04/12/20 09:00 05/27/20 08:59 04/13/20 08:19 Cefazolin Sodium 50 ml @ 100 mls/hr Q8H IVPB 04/13/20 12:00 04/20/20 11:59 04/13/20 11:54 Clopidogrel Bisulfate (Plavix) 75 mg DAILY ORAL 04/12/20 09:00 05/12/20 08:59 04/13/20 08:18 Dextrose (Dextrose 50%) 25 ml Q30M PRN IV Hypoglycemia 04/12/20 07:45 07/11/20 07:44 Dextrose (Dextrose 50%) 50 ml Q30M PRN IV Hypoglycemia 04/12/20 07:45 07/11/20 07:44 Heparin Sodium (Porcine) (Heparin 5000 units/ml) 5,000 units EVERY 8 HOURS SUBQ 04/12/20 07:45 05/27/20 07:44 04/13/20 14:37 Insulin Aspart (NovoLOG) BEFORE MEALS AND HS SUBQ 04/12/20 11:30 07/11/20 11:29 04/13/20 11:54 Ondansetron HCl (Zofran) 4 mg Q6H PRN IVP Nausea & Vomiting 04/12/20 07:45 05/12/20 07:44 Allergies: Coded Allergies: No Known Allergies (Unverified , 04/12/20) ROS Limited/Unobtainable: No Constitutional: Reports: no symptoms HEENT: Reports: no symptoms Cardiovascular: Reports: no symptoms Respiratory: Reports: no symptoms Gastrointestinal/Abdominal: Reports: no symptoms Genitourinary: Reports: no symptoms Neurologic/Psychiatric: Reports: no symptoms Subjective 60 YO F with history of left 1st toe osteomyelitis admitted with ulcer of left 1st toe. Now ostoemyelitis left 1st toe. Cover for Int Med-Dr Rg Objective Last Vital Signs Date Time Temp Pulse Resp B/P (MAP) Pulse Ox O2 Delivery O2 Flow Rate FiO2 04/13/20 12:00 98.4 91 16 116/66 (83) 99 04/13/20 07:31 Room Air General Appearance: WD/WN, no apparent distress, alert EENT: PERRL/EOMI, normal ENT inspection Neck: non-tender, normal alignment, supple, normal inspection Cardiovascular: normal peripheral pulses, normal rate, regular rhythm, no gallop/murmur, no JVD Respiratory/Chest: chest wall non-tender, lungs clear, normal breath sounds, no respiratory distress, no accessory muscle use Abdomen: normal bowel sounds, non tender, soft, no organomegaly, no mass Extremities: normal range of motion, non-tender 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, no motor/sensory deficits Skin: normal pigmentation, warm/dry Laboratory Tests Test 04/12/20 16:48 04/12/20 20:50 04/13/20 05:00 04/13/20 05:22 POC Whole Blood Glucose 312 MG/DL (74-106) H 211 MG/DL (74-106) H 126 MG/DL (74-106) H White Blood Count 4.3 K/UL (4.8-10.8) L Red Blood Count 4.07 M/UL (4.20-5.40) L Hemoglobin 11.3 G/DL (12.0-16.0) L Hematocrit 33.8 % (37.0-47.0) L Mean Corpuscular Volume 83 FL (80-99) Mean Corpuscular Hemoglobin 27.8 PG (27.0-31.0) Mean Corpuscular Hemoglobin Concent 33.5 G/DL (32.0-36.0) Red Cell Distribution Width 13.0 % (11.6-14.8) Platelet Count 313 K/UL (150-450) Mean Platelet Volume 7.1 FL (6.5-10.1) Neutrophils (%) (Auto) 43.3 % (45.0-75.0) L Lymphocytes (%) (Auto) 44.8 % (20.0-45.0) Monocytes (%) (Auto) 9.9 % (1.0-10.0) Eosinophils (%) (Auto) 1.2 % (0.0-3.0) Basophils (%) (Auto) 0.8 % (0.0-2.0) Erythrocyte Sedimentation Rate 40 MM/HR (0-30) H Sodium Level 140 MMOL/L (136-145) Potassium Level 4.1 MMOL/L (3.5-5.1) Chloride Level 103 MMOL/L (98-107) Carbon Dioxide Level 30 MMOL/L (21-32) Anion Gap 7 mmol/L (5-15) Blood Urea Nitrogen 12 mg/dL (7-18) Creatinine 0.7 MG/DL (0.55-1.30) Estimat Glomerular Filtration Rate > 60 mL/min (>60) Glucose Level 128 MG/DL (74-106) H Calcium Level 10.1 MG/DL (8.5-10.1) Phosphorus Level 3.9 MG/DL (2.5-4.9) Magnesium Level 1.7 MG/DL (1.8-2.4) L Total Bilirubin 0.4 MG/DL (0.2-1.0) Aspartate Amino Transf (AST/SGOT) 14 U/L (15-37) L Alanine Aminotransferase (ALT/SGPT) 16 U/L (12-78) Alkaline Phosphatase 70 U/L (46-116) C-Reactive Protein, Quantitative 2.8 mg/dL (0.00-0.90) H Total Protein 7.8 G/DL (6.4-8.2) Albumin 2.9 G/DL (3.4-5.0) L Globulin 4.9 g/dL Albumin/Globulin Ratio 0.6 (1.0-2.7) L HIV (1&2) Antibody Rapid Pending Intake and Output 04/12/20 04/13/20 19:00 07:00 Intake Total 990 ml 500 ml Balance 990 ml 500 ml Intake Oral 990 ml 500 ml # Voids 3 Assessment/Plan Problem List: (1) Uncontrolled diabetes mellitus Assessment & Plan: continue novolog sliding scale (2) Osteomyelitis of great toe of left foot Assessment & Plan: ID=Dr Maurice. Continue ancef and vanco per ID (3) Diabetic foot ulcer Assessment & Plan: Wound consult=DR Copeland (4) Peripheral vascular disease due to secondary diabetes Atif Hogue MD Apr 13, 2020 16:48
--- NOTE | 2020-04-13 19:25 | NUR ---
NURSE HAND-OFF: Important Events on Shift:N Patient Status: Diet: Pending Orders: N Pending Results/Labs:Y Pending MD notification: Latest Vital Signs: Temperature 97.9 , Pulse 89 , B/P 105 /71 , Respiratory Rate 16 , O2 SAT 99 , Room Air, O2 Flow Rate . Vital Sign Comment: Latest Benavides Fall Score: 35 Fall Risk: Medium Risk Safety Measures: Call light Within Reach, Bed Alarm Zone 2, Side Rails Side Rails x2, Bed position Low and Locked. Fall Precautions: Patient Fall Education Report given to Magdalene BECERRA.
--- NOTE | 2020-04-13 19:26 | NUR ---
NURSE NOTES: Patient in bed, awake and alert x4. PUI precautions. On room air with no signs of distress or SOB. Denies any pain in the foot. Dressing clean, dry and intact. Bed locked and in lowest position. Call light in reach. Will continue plan of care.
[2020-04-13 20:00] VITALS: BP 128/76
[2020-04-13 23:28] VITALS: BP 124/80
[2020-04-14 04:00] VITALS: BP 118/74
[2020-04-14] MEDS: ceFAZolin 2gm/50ml Premix 50 ML IVPB SCH ×3 (05:00→21:19)
[2020-04-14] MEDS: NovoLOG Insulin Flexpen SUBQ SCH ×4 (05:47→21:32)
[2020-04-14] MEDS: Heparin 5000 units/ml inj SUBQ SCH ×3 (06:00→21:32)
[2020-04-14 06:21] LABS: BASOPHILS % (AUTO) 1.3 % (0.0-2.0); EOSINOPHILS % (AUTO) 0.7 % (0.0-3.0); HEMATOCRIT 36.2 % (37.0-47.0); HEMOGLOBIN 11.6 G/DL (12.0-16.0); LYMPHOCYTES % (AUTO) 45.9 % (20.0-45.0); MEAN CORPUSCULAR VOLUME 83 FL (80-99); MONOCYTES % (AUTO) 9.1 % (1.0-10.0); NEUTROPHILS % (AUTO) 42.9 % (45.0-75.0); PLATELET COUNT 348 K/UL (150-450); RED BLOOD COUNT 4.38 M/UL (4.20-5.40); RED CELL DISTRIBUTION WIDTH 13.1 % (11.6-14.8); WHITE BLOOD COUNT 4.7 K/UL (4.8-10.8)
[2020-04-14 06:31] LABS: ANION GAP 4 mmol/L (5-15); BLOOD UREA NITROGEN 15 mg/dL (7-18); CALCIUM 10.6 MG/DL (8.5-10.1); CARBON DIOXIDE 31 MMOL/L (21-32); CHLORIDE 104 MMOL/L (98-107); CREATININE 0.7 MG/DL (0.55-1.30); POTASSIUM 4.1 MMOL/L (3.5-5.1); SODIUM 139 MMOL/L (136-145)
--- NOTE | 2020-04-14 06:45 | NUR ---
NURSE HAND-OFF: Important Events on Shift: No acute events Patient Status: Stable Diet: CCHO (high) Pending Orders: N/A Pending Results/Labs: BMP, CBC Pending MD notification: N/A Latest Vital Signs: Temperature 98.3 , Pulse 97 , B/P 118 /74 , Respiratory Rate 18 , O2 SAT 98 , Room Air, O2 Flow Rate . Vital Sign Comment: N/A Latest Benavides Fall Score: 35 Fall Risk: Medium Risk Safety Measures: Call light Within Reach, Bed Alarm Zone 2, Side Rails Side Rails x2, Bed position Low and Locked. Fall Precautions: Patient Fall Education Addendum: 04/14/20 at 0724 by MAREK CARDENAS RN Report given to HERNAN Palmer
[2020-04-14 08:00] VITALS: BP 114/59
--- NOTE | 2020-04-14 08:30 | NUR ---
NURSE NOTES: Received patient in bed, awake and alert, oriented x4. PUI precautions. On room air with no signs of distress or SOB. Denies any pain in the foot. Dressing clean, dry and intact, changed dressing, no open wound. Bed locked and in lowest position. Call light in reach. Will continue monitoring patient and following up with the plan of care.
[2020-04-14] MEDS: Aspirin Baby 81mg ORAL SCH (08:38)
--- NOTE | 2020-04-14 11:51 | NUR ---
INSURANCE CLINICALS FAXED TO [facility] FAX [phone] TELE [phone] ALYSSA- MATY Strange, SOHAM [address]
[2020-04-14 12:00] VITALS: BP 106/58
--- NOTE | 2020-04-14 12:24 | Surgery Progress Note ---
Surgery Progress Note Subjective Additional Comments doing well on abx feels okay podiatry eval Objective Last 24 Hour Vital Signs Date Time Temp Pulse Resp B/P (MAP) Pulse Ox O2 Delivery O2 Flow Rate FiO2 04/14/20 09:00 Room Air 04/14/20 08:00 97.5 81 20 114/59 (77) 96 04/14/20 04:00 98.3 97 18 118/74 (89) 98 04/13/20 23:28 97.9 82 16 124/80 (95) 98 04/13/20 20:46 Room Air 04/13/20 20:00 97.6 87 17 128/76 (93) 98 04/13/20 16:00 97.9 89 16 105/71 (82) 99 I&O Intake and Output 04/13/20 04/14/20 19:00 07:00 Intake Total 1080 ml 240 ml Balance 1080 ml 240 ml Intake Oral 1080 ml 240 ml # Voids 2 4 Dressing: saturated Cardiovascular: RSR Respiratory: decreased breath sounds Abdomen: soft, flat, non-tender, present bowel sounds Extremities: edema, tenderness, cyanosis Laboratory Tests Test 04/14/20 01:50 04/14/20 05:26 04/14/20 05:32 04/14/20 11:17 Vancomycin Level Trough 5.7 ug/mL (5.0-12.0) POC Whole Blood Glucose Pending Pending White Blood Count 4.7 K/UL (4.8-10.8) L Red Blood Count 4.38 M/UL (4.20-5.40) Hemoglobin 11.6 G/DL (12.0-16.0) L Hematocrit 36.2 % (37.0-47.0) L Mean Corpuscular Volume 83 FL (80-99) Mean Corpuscular Hemoglobin 26.4 PG (27.0-31.0) L Mean Corpuscular Hemoglobin Concent 31.9 G/DL (32.0-36.0) L Red Cell Distribution Width 13.1 % (11.6-14.8) Platelet Count 348 K/UL (150-450) Mean Platelet Volume 7.6 FL (6.5-10.1) Neutrophils (%) (Auto) 42.9 % (45.0-75.0) L Lymphocytes (%) (Auto) 45.9 % (20.0-45.0) H Monocytes (%) (Auto) 9.1 % (1.0-10.0) Eosinophils (%) (Auto) 0.7 % (0.0-3.0) Basophils (%) (Auto) 1.3 % (0.0-2.0) Sodium Level 139 MMOL/L (136-145) Potassium Level 4.1 MMOL/L (3.5-5.1) Chloride Level 104 MMOL/L (98-107) Carbon Dioxide Level 31 MMOL/L (21-32) Anion Gap 4 mmol/L (5-15) L Blood Urea Nitrogen 15 mg/dL (7-18) Creatinine 0.7 MG/DL (0.55-1.30) Estimat Glomerular Filtration Rate > 60 mL/min (>60) Glucose Level 116 MG/DL (74-106) H Calcium Level 10.6 MG/DL (8.5-10.1) H Plan Problems: (1) Cellulitis Assessment & Plan: left great toe cellulitis and ulcer MRI noted plan for podiatry faustino isaac for diet local wound care will follow with recs abx thank you Pt admitted with Full thickness Ulcer tip of R 1st metatarsal with surrounding necrosis of metatarsal (L)1.5cm x (W)1.5cm x (D)0.4cm.NO odor or exudate noted. Tx.Plan: Cleanse with Hydrogen Peroxide . Cover with Gauze and wrap with Kerlix Daily and prn. podiatry / vascular input appreciated plan outpt angio surgical intervention after cont abx and local wound care prior on picc and iv abx cont abx id input There is markedly increased STIR signal and decreased T1 signal within the first distal phalanx. No other marrow signal abnormality is demonstrated. There is edema of the subcutaneous fat of the dorsum of the foot. There is circumferential edema of the soft tissues of the great toe. No discrete fluid collection to suggest drainable abscess demonstrated. Impression: Findings consistent with osteomyelitis of the first distal phalanx Dorsal soft tissue edema of the forefoot as well as circumferential edema of the great toe, most likely indicating cellulitis given stated clinical history. No evidence of drainable abscess Negative for evidence of significant peripheral arterial insufficiency on the right Monophasic but otherwise preserved waveforms on the left at the popliteal artery and distal levels. Suspect on the basis of decreased peripheral resistance due to hyperemia, but mild suprageniculate stenosis also possible. Abdominal aorta: There is minimal calcified atherosclerotic plaquing of the abdominal aorta. No significant aortic stenosis, aneurysm, or dissection. The celiac axis, superior mesenteric artery, and proximal branch vessels are patent and nonstenotic. Patent nonstenotic bilateral renal arteries. Patent inferior mesenteric artery. Right lower extremity: Patent and nonstenotic right common, external, and internal iliac arteries. Patent and nonstenotic right common femoral, profunda femoral, superficial femoral arteries. There is calcified atherosclerotic plaquing but no significant stenosis of the popliteal artery. The anterior tibial artery is patent, nonstenotic, reaches the ankle and forms a dorsalis pedis artery. The tibioperoneal trunk demonstrates calcified plaquing but no significant stenosis. It is patent and nonstenotic. The posterior tibial artery is patent, nonstenotic, reaches the ankle. The terminal plantar branch of the posterior tibial artery demonstrates a possibly significant stenosis as it passes the calcaneus, and appears to occlude distally. The peroneal artery occludes shortly beyond its origin and remains occluded over its length Left lower extremity: Patent and nonstenotic common, external, and internal iliac arteries. Patent and nonstenotic common femoral, is profunda femoral, superficial femoral arteries. There is focal stenosis, likely 50% or greater, of the mid popliteal artery at about the level of the knee joint. The anterior tibial artery demonstrates atherosclerotic calcification but no definite focal stenosis. The tibioperoneal trunk and posterior tibial arteries are patent, nonstenotic, the latter reaching well beyond the ankle. The peroneal artery is highly stenotic at its origin, occludes shortly beyond the origin, does not reconstitute. Nonvascular: The included lung bases demonstrate slight mosaic perfusion. The visualized portions of the liver are unremarkable. Unusual densities are seen around the gallbladder fossa. There is a fluid structure that appears to be the gallbladder, although this could represent a small postoperative biloma if there is been prior cholecystectomy. The bile ducts are nondilated. The pancreas, spleen, adrenals, kidneys are unremarkable. No retroperitoneal or mesenteric mass or adenopathy. No pelvic mass or adenopathy. The uterus and ovaries are unremarkable. The bladder is unremarkable. Considerable stool is seen throughout the colon. No small bowel distention. No free or loculated intraperitoneal gas or fluid is evident. The appendix is normal. No small bowel distention. There are degenerative changes of the lumbar spine. IMPRESSION: Stenosis, likely significant, of the mid left popliteal artery. This would likely be amenable to angioplasty Occlusion of the left peroneal artery. No other evidence of left lower extremity peripheral arterial insufficiency Occluded right peroneal artery. Probably occluded terminal branch of the right posterior tibial artery below the ankle. No other evidence of significant right lower extremity arterial insufficiency Somewhat unusual appearance to the gallbladder fossa, may reflect calcifications in or around the gallbladder wall, versus prior cholecystectomy and biloma. Correlate with surgical history (2) Osteomyelitis Assessment & Plan: Findings similar to that noted on the plain film exam. There is abnormal bony resorption noted of the first distal tuft. Marrow edema noted extensively throughout the first distal phalanx on both STIR and T1 images. Findings consistent with focal osteomyelitis. The other bony appendages otherwise appear intact and retain normal signal. Joint spaces appear well-maintained. There is soft tissue swelling noted at the dorsum of the forefoot to midfoot. No fluid collection or abscess identified. Tendinous and ligamentous structures of the forefoot and midfoot appear grossly unremarkable. IMPRESSION: OSTEOMYELITIS OF THE FIRST DISTAL PHALANX. GREAT TOE SOFT TISSUE ULCERATION. SOFT TISSUE EDEMA AT THE DORSUM OF THE FOREFOOT TO MIDFOOT. NO SOFT TISSUE FLUID COLLECTION OR ABSCESS. (3) Uncontrolled diabetes mellitus (4) Injury of toe on left foot Washington Copeland Apr 14, 2020 12:24
--- NOTE | 2020-04-14 13:31 | Internal Med Progress Note ---
Subjective Date of Service: Apr 14, 2020 Physician Name Atif Hogue Attending Physician Brayden Rg MD Current Medications Medications (Trade) Dose Ordered Sig/Jerman Route PRN Reason Start Time Stop Time Status Last Admin Dose Admin Acetaminophen (Tylenol) 650 mg Q6H PRN ORAL Temp >100.5 04/12/20 07:45 05/12/20 07:44 Acetaminophen (Tylenol) 650 mg Q6H PRN ORAL PAIN 1-3 04/12/20 08:00 05/12/20 07:59 Acetaminophen/ Hydrocodone Bitart ([place] 5/325) 1 tab Q6H PRN ORAL pain 4-10 04/12/20 07:45 04/19/20 07:44 Aspirin (ASA) 81 mg DAILY ORAL 04/12/20 09:00 05/27/20 08:59 04/14/20 08:38 Cefazolin Sodium 50 ml @ 100 mls/hr Q8H IVPB 04/13/20 12:00 04/20/20 11:59 04/14/20 11:14 Clopidogrel Bisulfate (Plavix) 75 mg DAILY ORAL 04/12/20 09:00 05/12/20 08:59 04/14/20 08:38 Dextrose (Dextrose 50%) 25 ml Q30M PRN IV Hypoglycemia 04/12/20 07:45 07/11/20 07:44 Dextrose (Dextrose 50%) 50 ml Q30M PRN IV Hypoglycemia 04/12/20 07:45 07/11/20 07:44 Heparin Sodium (Porcine) (Heparin 5000 units/ml) 5,000 units EVERY 8 HOURS SUBQ 04/12/20 07:45 05/27/20 07:44 04/14/20 06:00 Insulin Aspart (NovoLOG) BEFORE MEALS AND HS SUBQ 04/12/20 11:30 07/11/20 11:29 04/14/20 11:29 Ondansetron HCl (Zofran) 4 mg Q6H PRN IVP Nausea & Vomiting 04/12/20 07:45 05/12/20 07:44 Allergies: Coded Allergies: No Known Allergies (Unverified , 04/12/20) ROS Limited/Unobtainable: No Constitutional: Reports: no symptoms HEENT: Reports: no symptoms Cardiovascular: Reports: no symptoms Respiratory: Reports: no symptoms Gastrointestinal/Abdominal: Reports: no symptoms Genitourinary: Reports: no symptoms Subjective 60 YO F with history of left 1st toe osteomyelitis admitted with ulcer of left 1st toe. Now ostoemyelitis left 1st toe. Cover for Int Rafy-Dr Rg Objective Last Vital Signs Date Time Temp Pulse Resp B/P (MAP) Pulse Ox O2 Delivery O2 Flow Rate FiO2 04/14/20 09:00 Room Air 04/14/20 08:00 97.5 81 20 114/59 (77) 96 Laboratory Tests Test 04/14/20 01:50 04/14/20 05:26 04/14/20 05:32 04/14/20 11:17 Vancomycin Level Trough 5.7 ug/mL (5.0-12.0) POC Whole Blood Glucose Pending Pending White Blood Count 4.7 K/UL (4.8-10.8) L Red Blood Count 4.38 M/UL (4.20-5.40) Hemoglobin 11.6 G/DL (12.0-16.0) L Hematocrit 36.2 % (37.0-47.0) L Mean Corpuscular Volume 83 FL (80-99) Mean Corpuscular Hemoglobin 26.4 PG (27.0-31.0) L Mean Corpuscular Hemoglobin Concent 31.9 G/DL (32.0-36.0) L Red Cell Distribution Width 13.1 % (11.6-14.8) Platelet Count 348 K/UL (150-450) Mean Platelet Volume 7.6 FL (6.5-10.1) Neutrophils (%) (Auto) 42.9 % (45.0-75.0) L Lymphocytes (%) (Auto) 45.9 % (20.0-45.0) H Monocytes (%) (Auto) 9.1 % (1.0-10.0) Eosinophils (%) (Auto) 0.7 % (0.0-3.0) Basophils (%) (Auto) 1.3 % (0.0-2.0) Sodium Level 139 MMOL/L (136-145) Potassium Level 4.1 MMOL/L (3.5-5.1) Chloride Level 104 MMOL/L (98-107) Carbon Dioxide Level 31 MMOL/L (21-32) Anion Gap 4 mmol/L (5-15) L Blood Urea Nitrogen 15 mg/dL (7-18) Creatinine 0.7 MG/DL (0.55-1.30) Estimat Glomerular Filtration Rate > 60 mL/min (>60) Glucose Level 116 MG/DL (74-106) H Calcium Level 10.6 MG/DL (8.5-10.1) H Microbiology Date/Time Source Procedure Growth Status 04/12/20 02:00 Blood Blood Culture - Preliminary NO GROWTH AFTER 48 HOURS Resulted 04/12/20 01:45 Blood Blood Culture - Preliminary NO GROWTH AFTER 48 HOURS Resulted l Intake and Output 04/13/20 04/14/20 19:00 07:00 Intake Total 1080 ml 240 ml Balance 1080 ml 240 ml Intake Oral 1080 ml 240 ml # Voids 2 4 Objective General Appearance: WD/WN, no apparent distress, alert EENT: PERRL/EOMI, normal ENT inspection Neck: non-tender, normal alignment, supple, normal inspection Cardiovascular: normal peripheral pulses, normal rate, regular rhythm, no gallop/murmur, no JVD Respiratory/Chest: chest wall non-tender, lungs clear, normal breath sounds, no respiratory distress, no accessory muscle use Abdomen: normal bowel sounds, non tender, soft, no organomegaly, no mass Extremities: normal range of motion, non-tender Neurologic: ripening room hand II-XII grossly normal, no motor/sensory deficits Skin: normal pigmentation, warm/dry Assessment/Plan Problem List: (1) Uncontrolled diabetes mellitus Assessment & Plan: continue novolog sliding scale (2) Osteomyelitis of great toe of left foot Assessment & Plan: ID=Dr Maurice. Podiatry=Dr Caicedo. Continue ancef per ID (3) Diabetic foot ulcer Assessment & Plan: Wound consult=DR Copeland (4) Peripheral vascular disease due to secondary diabetes Atif Hogue MD Apr 14, 2020 13:31
[2020-04-14 16:00] VITALS: BP 132/72
--- NOTE | 2020-04-14 19:38 | NUR ---
NURSE HAND-OFF: Important Events on Shift:[] Patient Status: [] Diet: [CCHO high] Pending Orders: [cbc, cmp, crp] Pending Results/Labs:[] Pending MD notification:[] Latest Vital Signs: Temperature 97.3 , Pulse 70 , B/P 132 /72 , Respiratory Rate 18 , O2 SAT 95 , Room Air, O2 Flow Rate . Vital Sign Comment: [] Latest Benavides Fall Score: 35 Fall Risk: Medium Risk Safety Measures: Call light Within Reach, Bed Alarm Zone 2, Side Rails Side Rails x2, Bed position Low and Locked. Fall Precautions: Patient Fall Education Report given to [HERNAN Simms].
[2020-04-14 20:00] VITALS: BP 120/64
[2020-04-15] VITALS: BP 103/60
--- NOTE | 2020-04-15 00:14 | History and Physical Report ---
DATE OF ADMISSION: 04/12/2020 CHIEF COMPLAINT: Left foot pain and swollen. HISTORY OF PRESENT ILLNESS: This is a 60-year-old female with past medical history significant for vascular disease, peripheral arterial disease, history of diabetes type 2, poorly controlled with a left foot first toe diabetic foot ulcer with prior history of osteomyelitis, who presented to the emergency room complaining about the left foot pain and swollen with drainage. The patient states that she has been having this infection on the toe over a year ago, was on a short period of antibiotics. She did not have the insurance and subsequently was started on oral antibiotics and for therapy. Her wound did not improve. She denies any fever, chills, nausea, vomiting, chest pain, dysuria, frequency, or hematuria. Shortly after initial evaluation in the emergency department, the patient was admitted to the hospital with left foot diabetic foot ulcer with osteomyelitis. PAST MEDICAL HISTORY/PAST SURGICAL HISTORY: As above history of diabetes type 2, poorly controlled with diabetic foot ulcer with osteomyelitis of the left first great toe, peripheral vascular disease, and peripheral arterial disease. MEDICATIONS: At home, please refer to medication reconciliation. ALLERGIES: No known drug allergies. SOCIAL HISTORY: Denies any smoking, alcohol, or drugs. FAMILY HISTORY: Father history of prostate cancer. REVIEW OF SYSTEMS: Mostly as above. Denies any dysuria, frequency, or hematuria. Denies any hemoptysis or hematochezia. Denies any bright red blood per rectum. Denies any loss of consciousness. Denies any fall or head trauma. PHYSICAL EXAMINATION: VITAL SIGNS: On admission, temperature is 98.6, pulse of 102, respirations 20, and blood pressure 129/83. GENERAL: The patient awake, responsive, no acute distress. HEAD AND NECK: Pupils are equal and reactive to light. Extraocular muscles intact. Neck was supple. No JVD. LUNGS: Good air entry with no wheezing or rales. HEART: S1, S2. Regular rhythm. No gallops. ABDOMEN: Soft, nondistended and nontender. Positive bowel sounds. EXTREMITIES: No cyanosis, clubbing, or edema. The patient's left foot first toe tender to touch, edematous 2 cm open ulcer on the distal left first toe. Active blood and positive discharge was noted. NEUROLOGIC: Cranial nerves II through XII are grossly intact. The patient is moving all the extremities. Gait was not assessed due to the patient's status. RECTAL: Refused and deferred. : Referred and deferred. PSYCHIATRIC: Mood and affect is intact. LABORATORY DATA: On admission, sodium 140, potassium 4.3, chloride 104, bicarb 28, BUN 18, creatinine 0.7, glucose is 102, lactic acid is 1.4, calcium is 10.1, total bilirubin of 0.5, AST of 21, ALT of 19, alkaline phosphatase was 83. WBC of 5.9, hemoglobin 11 and hematocrit 35, platelet is 312. The patient had x-ray of the left foot shows a first distal phalanx osteomyelitis. MRI of the foot confirmed the osteomyelitis of the first toe phalanx and greatest toe soft tissue ulceration soft tissue edema at the dorsum of the forefoot to the midfoot. No soft tissue fluid collection or abscess identified. ASSESSMENT: 1. Diabetes type 2, poorly controlled. 2. Prophylaxis, peripheral artery disease. 3. Osteomyelitis of the left first toe left hallux. 4. Diabetic foot ulcer. PLAN: Admit the patient to medical floor. We will follow up with laboratory as well as culture. Code status is Full code, DVT, prophylaxis, heparin subcutaneous. Discussed case with Dr. Humphreys from Podiatry and Dr. Lazaro from Infectious Disease. We will monitor culture. Brayden Rg M.D. DR: Lupe JOB#: [id number] CC:
[2020-04-15 04:00] VITALS: BP 110/65
[2020-04-15] MEDS: ceFAZolin 2gm/50ml Premix 50 ML IVPB SCH ×3 (05:00→19:55)
--- NOTE | 2020-04-15 05:29 | Consultation ---
DATE OF CONSULTATION: 04/12/2020 CONSULTING PHYSICIAN: Fausto Tesfaye DPM REFERRING PHYSICIAN: Brayden Rg MD REASON FOR CONSULTATION: Ulceration to the left hallux toe. HISTORY OF PRESENT ILLNESS: This is a 60-year-old diabetic patient with history of infection at the tip of the left hallux. Patient states that about few months ago she was admitted with infection to the toe, was given 6 weeks of IV antibiotics. She states that about a week ago, she noticed a flare in the ulceration site area and it got swollen with drainage and discharge. She was admitted to [facility] for evaluation and treatment. Patient is currently on IV antibiotic. X-rays consistent with possible osteomyelitis . PODIATRY EXAMINATION: VASCULAR: Dorsalis pedis and posterior tibial arteries are palpable. Capillary filling time within normal limits. NEUROLOGICAL EXAMINATION: Sharp and dull proprioception protected threshold noted to be diminished consistent with encephalopathy. MUSCULOSKELETAL EXAMINATION: Patient is mobile. Muscle strength noted to be within normal limits. Range of motion normal limits. No gross abnormalities identified. DERMATOLOGICAL EXAMINATION: Attention was directed to the left hallux. One ulceration was identified. Swollen toe. There is drainage of pus, discharge, and odor, probes to bone, consistent with clinical osteomyelitis. There is cellulitis to the distal aspect of the IPJ. ASSESSMENT AND PLAN: Diabetic foot ulcer with underlying osteomyelitis. Incision and drainage was done by bedside to release the purulent discharge. The wound was then flushed with normal saline and hydrogen peroxide and applied dry dressing. Order was written for an MRI to rule out abscess and also identify the extent of the osteomyelitis. If there is no bone destruction, the patient can continue with IV antibiotic. Otherwise, may benefit from a hallux amputation. The patient will be followed. Fausto Tesfaye D.P.M DR: SHARLENE JOB#: [id number] CC:
[2020-04-15] MEDS: NovoLOG Insulin Flexpen SUBQ SCH ×4 (06:03→21:09)
[2020-04-15] MEDS: Heparin 5000 units/ml inj SUBQ SCH ×3 (06:03→21:10)
[2020-04-15 07:08] LABS: BASOPHILS % (AUTO) 0.9 % (0.0-2.0); EOSINOPHILS % (AUTO) 0.6 % (0.0-3.0); HEMOGLOBIN 11.5 G/DL (12.0-16.0); LYMPHOCYTES % (AUTO) 46.6 % (20.0-45.0); MEAN CORPUSCULAR VOLUME 82 FL (80-99); MONOCYTES % (AUTO) 9.6 % (1.0-10.0); NEUTROPHILS % (AUTO) 42.3 % (45.0-75.0); PLATELET COUNT 365 K/UL (150-450); RED BLOOD COUNT 4.36 M/UL (4.20-5.40); RED CELL DISTRIBUTION WIDTH 12.8 % (11.6-14.8); WHITE BLOOD COUNT 4.3 K/UL (4.8-10.8)
--- NOTE | 2020-04-15 07:22 | NUR ---
NURSE HAND-OFF: Important Events on Shift: No acute events Patient Status: Stable Diet: CCHO Pending Orders: N/A Pending Results/Labs: AM labs Pending MD notification:N/A Latest Vital Signs: Temperature 98.6 , Pulse 74 , B/P 110 /65 , Respiratory Rate 20 , O2 SAT 99 , Room Air, O2 Flow Rate . Vital Sign Comment: Latest Benavides Fall Score: 35 Fall Risk: Medium Risk Safety Measures: Call light Within Reach, Bed Alarm Zone 2, Side Rails Side Rails x2, Bed position Low and Locked. Fall Precautions: Patient Fall Education Report given to HERNAN Palmer.
[2020-04-15 07:32] LABS: ALANINE AMINOTRANSFERASE 15 U/L (12-78); ALBUMIN 2.8 G/DL (3.4-5.0); ALBUMIN/GLOBULIN RATIO 0.6 (1.0-2.7); ALKALINE PHOSPHATASE 66 U/L (46-116); ANION GAP 10 mmol/L (5-15); ASPARTATE AMINO TRANSFERASE 18 U/L (15-37); BILIRUBIN,TOTAL 0.2 MG/DL (0.2-1.0); BLOOD UREA NITROGEN 13 mg/dL (7-18); CALCIUM 9.9 MG/DL (8.5-10.1); CARBON DIOXIDE 26 MMOL/L (21-32); CHLORIDE 104 MMOL/L (98-107); CREATININE 0.5 MG/DL (0.55-1.30); POTASSIUM 3.9 MMOL/L (3.5-5.1); SODIUM 140 MMOL/L (136-145)
--- NOTE | 2020-04-15 07:46 | NUR ---
NURSE NOTES: Received patient in bed, awake and alert, oriented x4. PUI status, awaiting result of PCR. On room air, no signs of distress or SOB. Denies any pain in the foot. Dressing clean, dry and intact, changed dressing, no open wound. Bed locked and in lowest position. Call light within easy reach. Will continue monitoring patient and following up with the plan of care.
[2020-04-15 08:00] VITALS: BP 108/57
[2020-04-15] MEDS: Aspirin Baby 81mg ORAL SCH (08:16)
[2020-04-15] MEDS ORDERED: METFORMIN HCL1000 M1 ORAL (10:38)
[2020-04-15] MEDS ORDERED: ASCORBIC ACID500 MG ORAL (10:38)
--- NOTE | 2020-04-15 10:40 | Infectious Diseases Prog Note ---
Assessment/Plan 60yo F with: L first toe acute on chronic osteomyelitis H/o MSSA OM of L first toe H/o OM in this toe, s/p 6 wks of IV cefazolin about 6 mo [employer], no abx since Afebrile Normal WBC 04/12 BCx NTD MRI L foot: OSTEOMYELITIS OF THE FIRST DISTAL PHALANX. GREAT TOE SOFT TISSUE ULCERATION. SOFT TISSUE EDEMA AT THE DORSUM OF THE FOREFOOT TO MIDFOOT. NO SOFT TISSUE FLUID COLLECTION OR ABSCESS. 04/13 ESR p, CRP 2.8 MRSA nares neg R/o COVID given pandemic, low s/f it in this patient 04/13 COVID PCR p CXR: No acute process HIV screen neg PMH: PVD DM2 Plan: Cont cefazolin 2g IV q8hrs # to target prior known MSSA OM Will need 6 week course of IV abx for acute on chronic osteomyelitis of the L hallux Weekly CBC w diff, BMP, LFTs while on IV abx Place PICC line Will need PCP and Podiatry f/u on discharge Appreciate Surgery input on if amputation in plans ESR F/u COVID PCR screen Monitor CBC/CMP Monitor temp curve, hemodynamics Monitor resp status D/w RN Thank you for this consult. [facility] will continue to follow. Subjective Allergies: Coded Allergies: No Known Allergies (Unverified , 04/12/20) AF NAD on RA WBC 4.3 Doing well, reports less pain and swelling in her toe No plans for surgery per d/w pt and RN Objective Last 24 Hour Vital Signs Date Time Temp Pulse Resp B/P (MAP) Pulse Ox O2 Delivery O2 Flow Rate FiO2 04/15/20 09:00 Room Air 04/15/20 08:53 98.6 04/15/20 08:00 98.6 57 18 108/57 (74) 98 04/15/20 04:00 98.6 74 20 110/65 (80) 99 04/15/20 00:00 97.0 93 20 103/60 (74) 98 04/14/20 21:00 Room Air 04/14/20 20:00 97.9 75 20 120/64 (82) 98 04/14/20 16:00 97.3 70 18 132/72 (92) 95 04/14/20 12:00 96.9 83 18 106/58 (74) 99 Height (Feet): 5 Height (Inches): 8.00 Weight (Pounds): 180 Gen: NAD HEENT: NCAT, EOMI, PERRL Pulm: BL chest rise on RA, non-labored Abd: Non-distended Ext: No c/c/e except for L first toe w/ distal swelling and distal dry ulceration wo drainage, TTP; today dressings c/d/i Skin: No visible rashes Neuro: Awake, alert, interactive. Intact sensation in LLE Microbiology Date/Time Source Procedure Growth Status 04/13/20 10:30 Nasal Nares Left MRSA Culture - Final NO METHICILLIN RESISTANT STAPH AUREUS... Complete Laboratory Tests Test 04/14/20 11:17 04/14/20 16:56 04/14/20 21:26 04/15/20 06:20 POC Whole Blood Glucose Pending Pending Pending White Blood Count 4.3 K/UL (4.8-10.8) L Red Blood Count 4.36 M/UL (4.20-5.40) Hemoglobin 11.5 G/DL (12.0-16.0) L Hematocrit 36.0 % (37.0-47.0) L Mean Corpuscular Volume 82 FL (80-99) Mean Corpuscular Hemoglobin 26.3 PG (27.0-31.0) L Mean Corpuscular Hemoglobin Concent 31.9 G/DL (32.0-36.0) L Red Cell Distribution Width 12.8 % (11.6-14.8) Platelet Count 365 K/UL (150-450) Mean Platelet Volume 7.6 FL (6.5-10.1) Neutrophils (%) (Auto) 42.3 % (45.0-75.0) L Lymphocytes (%) (Auto) 46.6 % (20.0-45.0) H Monocytes (%) (Auto) 9.6 % (1.0-10.0) Eosinophils (%) (Auto) 0.6 % (0.0-3.0) Basophils (%) (Auto) 0.9 % (0.0-2.0) Sodium Level 140 MMOL/L (136-145) Potassium Level 3.9 MMOL/L (3.5-5.1) Chloride Level 104 MMOL/L (98-107) Carbon Dioxide Level 26 MMOL/L (21-32) Anion Gap 10 mmol/L (5-15) Blood Urea Nitrogen 13 mg/dL (7-18) Creatinine 0.5 MG/DL (0.55-1.30) L Estimat Glomerular Filtration Rate > 60 mL/min (>60) Glucose Level 195 MG/DL (74-106) H Calcium Level 9.9 MG/DL (8.5-10.1) Total Bilirubin 0.2 MG/DL (0.2-1.0) Aspartate Amino Transf (AST/SGOT) 18 U/L (15-37) Alanine Aminotransferase (ALT/SGPT) 15 U/L (12-78) Alkaline Phosphatase 66 U/L (46-116) C-Reactive Protein, Quantitative 1.0 mg/dL (0.00-0.90) H Total Protein 7.7 G/DL (6.4-8.2) Albumin 2.8 G/DL (3.4-5.0) L Globulin 4.9 g/dL Albumin/Globulin Ratio 0.6 (1.0-2.7) L Current Medications Medications (Trade) Dose Ordered Sig/Jerman Route PRN Reason Start Time Stop Time Status Last Admin Dose Admin Acetaminophen (Tylenol) 650 mg Q6H PRN ORAL Temp >100.5 04/12/20 07:45 05/12/20 07:44 Acetaminophen (Tylenol) 650 mg Q6H PRN ORAL PAIN 1-3 04/12/20 08:00 05/12/20 07:59 04/15/20 08:23 Acetaminophen/ Hydrocodone Bitart ([place] 5/325) 1 tab Q6H PRN ORAL pain 4-10 04/12/20 07:45 04/19/20 07:44 Aspirin (ASA) 81 mg DAILY ORAL 04/12/20 09:00 05/27/20 08:59 04/15/20 08:16 Cefazolin Sodium 50 ml @ 100 mls/hr Q8H IVPB 04/13/20 12:00 04/20/20 11:59 04/15/20 05:00 Clopidogrel Bisulfate (Plavix) 75 mg DAILY ORAL 04/12/20 09:00 05/12/20 08:59 04/15/20 08:16 Dextrose (Dextrose 50%) 25 ml Q30M PRN IV Hypoglycemia 04/12/20 07:45 07/11/20 07:44 Dextrose (Dextrose 50%) 50 ml Q30M PRN IV Hypoglycemia 04/12/20 07:45 07/11/20 07:44 Heparin Sodium (Porcine) (Heparin 5000 units/ml) 5,000 units EVERY 8 HOURS SUBQ 04/12/20 07:45 05/27/20 07:44 04/15/20 06:03 Insulin Aspart (NovoLOG) BEFORE MEALS AND HS SUBQ 04/12/20 11:30 07/11/20 11:29 04/15/20 06:03 Ondansetron HCl (Zofran) 4 mg Q6H PRN IVP Nausea & Vomiting 04/12/20 07:45 05/12/20 07:44 Viktoria Maurice M.D. Apr 15, 2020 10:40
[2020-04-15 12:00] VITALS: BP 112/66
[2020-04-15] MEDS ORDERED: Heparin1,000 units/500ml Premix(Conc:2 units/ml) IV PRN (12:45)
[2020-04-15] MEDS ORDERED: Lidocaine 1% Plain 30 ml INJ PRN (12:45)
--- NOTE | 2020-04-15 13:33 | NUR ---
RD ASSESSMENT & RECOMMENDATIONS SEE CARE ACTIVITY FOR COMPLETE ASSESSMENT DAILY ESTIMATED NEEDS: Needs based on OM, DM/ 68kg abw 25-30 kcals/kg total kcals 1.25-1.5 g protein/kg 84-101 g total protein 25-30 mL/kg total fluid mLs NUTRITION DIAGNOSIS: Increased pro needs r/t OM as evidenced by L foot hallux ulceration, s/p I&D CURRENT DIET: [facility] HIGH PO DIET RECOMMENDATIONS: [facility] + double protein portions ADDITIONAL RECOMMENDATIONS: 1) Obtain a calibrated bed scale wt as able 2) Wound care: MVI x 1, Vit C 500mg BID, ZnSO4 220mg QD x 10 days Flavio BID 3) Monitor BGs closely, need for additional hypoglycemics
--- NOTE | 2020-04-15 13:46 | Surgery Progress Note ---
Surgery Progress Note Subjective Additional Comments podiatry input appreciated i&D abx picc Objective Last 24 Hour Vital Signs Date Time Temp Pulse Resp B/P (MAP) Pulse Ox O2 Delivery O2 Flow Rate FiO2 04/15/20 12:00 97.3 74 20 112/66 (81) 98 04/15/20 09:00 Room Air 04/15/20 08:53 98.6 04/15/20 08:00 98.6 57 18 108/57 (74) 98 04/15/20 04:00 98.6 74 20 110/65 (80) 99 04/15/20 00:00 97.0 93 20 103/60 (74) 98 04/14/20 21:00 Room Air 04/14/20 20:00 97.9 75 20 120/64 (82) 98 04/14/20 16:00 97.3 70 18 132/72 (92) 95 I&O Intake and Output 04/14/20 04/15/20 19:00 07:00 Intake Total 50 ml Balance 50 ml IV Total 50 ml # Voids 2 2 Dressing: saturated Cardiovascular: RSR Respiratory: clear Abdomen: soft, non-tender, present bowel sounds, non-distended Extremities: tenderness Laboratory Tests Test 04/14/20 16:56 04/14/20 21:26 04/15/20 06:20 04/15/20 11:28 POC Whole Blood Glucose Pending Pending Pending White Blood Count 4.3 K/UL (4.8-10.8) L Red Blood Count 4.36 M/UL (4.20-5.40) Hemoglobin 11.5 G/DL (12.0-16.0) L Hematocrit 36.0 % (37.0-47.0) L Mean Corpuscular Volume 82 FL (80-99) Mean Corpuscular Hemoglobin 26.3 PG (27.0-31.0) L Mean Corpuscular Hemoglobin Concent 31.9 G/DL (32.0-36.0) L Red Cell Distribution Width 12.8 % (11.6-14.8) Platelet Count 365 K/UL (150-450) Mean Platelet Volume 7.6 FL (6.5-10.1) Neutrophils (%) (Auto) 42.3 % (45.0-75.0) L Lymphocytes (%) (Auto) 46.6 % (20.0-45.0) H Monocytes (%) (Auto) 9.6 % (1.0-10.0) Eosinophils (%) (Auto) 0.6 % (0.0-3.0) Basophils (%) (Auto) 0.9 % (0.0-2.0) Erythrocyte Sedimentation Rate 60 MM/HR (0-30) H Sodium Level 140 MMOL/L (136-145) Potassium Level 3.9 MMOL/L (3.5-5.1) Chloride Level 104 MMOL/L (98-107) Carbon Dioxide Level 26 MMOL/L (21-32) Anion Gap 10 mmol/L (5-15) Blood Urea Nitrogen 13 mg/dL (7-18) Creatinine 0.5 MG/DL (0.55-1.30) L Estimat Glomerular Filtration Rate > 60 mL/min (>60) Glucose Level 195 MG/DL (74-106) H Calcium Level 9.9 MG/DL (8.5-10.1) Total Bilirubin 0.2 MG/DL (0.2-1.0) Aspartate Amino Transf (AST/SGOT) 18 U/L (15-37) Alanine Aminotransferase (ALT/SGPT) 15 U/L (12-78) Alkaline Phosphatase 66 U/L (46-116) C-Reactive Protein, Quantitative 1.0 mg/dL (0.00-0.90) H Total Protein 7.7 G/DL (6.4-8.2) Albumin 2.8 G/DL (3.4-5.0) L Globulin 4.9 g/dL Albumin/Globulin Ratio 0.6 (1.0-2.7) L Plan Problems: (1) Cellulitis Assessment & Plan: left great toe cellulitis and ulcer MRI noted plan for podiatry faustino isaac for diet local wound care will follow with recs abx thank you podiatry input appreciated abx and picc line limb salvage s/p I&D Pt admitted with Full thickness Ulcer tip of R 1st metatarsal with surrounding necrosis of metatarsal (L)1.5cm x (W)1.5cm x (D)0.4cm.NO odor or exudate noted. Tx.Plan: Cleanse with Hydrogen Peroxide . Cover with Gauze and wrap with Kerlix Daily and prn. podiatry / vascular input appreciated plan outpt angio surgical intervention after cont abx and local wound care prior on picc and iv abx cont abx id input There is markedly increased STIR signal and decreased T1 signal within the first distal phalanx. No other marrow signal abnormality is demonstrated. There is edema of the subcutaneous fat of the dorsum of the foot. There is circumferential edema of the soft tissues of the great toe. No discrete fluid collection to suggest drainable abscess demonstrated. Impression: Findings consistent with osteomyelitis of the first distal phalanx Dorsal soft tissue edema of the forefoot as well as circumferential edema of the great toe, most likely indicating cellulitis given stated clinical history. No evidence of drainable abscess Negative for evidence of significant peripheral arterial insufficiency on the right Monophasic but otherwise preserved waveforms on the left at the popliteal artery and distal levels. Suspect on the basis of decreased peripheral resistance due to hyperemia, but mild suprageniculate stenosis also possible. Abdominal aorta: There is minimal calcified atherosclerotic plaquing of the abdominal aorta. No significant aortic stenosis, aneurysm, or dissection. The celiac axis, superior mesenteric artery, and proximal branch vessels are patent and nonstenotic. Patent nonstenotic bilateral renal arteries. Patent inferior mesenteric artery. Right lower extremity: Patent and nonstenotic right common, external, and internal iliac arteries. Patent and nonstenotic right common femoral, profunda femoral, superficial femoral arteries. There is calcified atherosclerotic plaquing but no significant stenosis of the popliteal artery. The anterior tibial artery is patent, nonstenotic, reaches the ankle and forms a dorsalis pedis artery. The tibioperoneal trunk demonstrates calcified plaquing but no significant stenosis. It is patent and nonstenotic. The posterior tibial artery is patent, nonstenotic, reaches the ankle. The terminal plantar branch of the posterior tibial artery demonstrates a possibly significant stenosis as it passes the calcaneus, and appears to occlude distally. The peroneal artery occludes shortly beyond its origin and remains occluded over its length Left lower extremity: Patent and nonstenotic common, external, and internal iliac arteries. Patent and nonstenotic common femoral, is profunda femoral, superficial femoral arteries. There is focal stenosis, likely 50% or greater, of the mid popliteal artery at about the level of the knee joint. The anterior tibial artery demonstrates atherosclerotic calcification but no definite focal stenosis. The tibioperoneal trunk and posterior tibial arteries are patent, nonstenotic, the latter reaching well beyond the ankle. The peroneal artery is highly stenotic at its origin, occludes shortly beyond the origin, does not reconstitute. Nonvascular: The included lung bases demonstrate slight mosaic perfusion. The visualized portions of the liver are unremarkable. Unusual densities are seen around the gallbladder fossa. There is a fluid structure that appears to be the gallbladder, although this could represent a small postoperative biloma if there is been prior cholecystectomy. The bile ducts are nondilated. The pancreas, spleen, adrenals, kidneys are unremarkable. No retroperitoneal or mesenteric mass or adenopathy. No pelvic mass or adenopathy. The uterus and ovaries are unremarkable. The bladder is unremarkable. Considerable stool is seen throughout the colon. No small bowel distention. No free or loculated intraperitoneal gas or fluid is evident. The appendix is normal. No small bowel distention. There are degenerative changes of the lumbar spine. IMPRESSION: Stenosis, likely significant, of the mid left popliteal artery. This would likely be amenable to angioplasty Occlusion of the left peroneal artery. No other evidence of left lower extremity peripheral arterial insufficiency Occluded right peroneal artery. Probably occluded terminal branch of the right posterior tibial artery below the ankle. No other evidence of significant right lower extremity arterial insufficiency Somewhat unusual appearance to the gallbladder fossa, may reflect calcifications in or around the gallbladder wall, versus prior cholecystectomy and biloma. Correlate with surgical history (2) Osteomyelitis Assessment & Plan: Findings similar to that noted on the plain film exam. There is abnormal bony resorption noted of the first distal tuft. Marrow edema noted extensively throughout the first distal phalanx on both STIR and T1 images. Findings consistent with focal osteomyelitis. The other bony appendages otherwise appear intact and retain normal signal. Joint spaces appear well-maintained. There is soft tissue swelling noted at the dorsum of the forefoot to midfoot. No fluid collection or abscess identified. Tendinous and ligamentous structures of the forefoot and midfoot appear grossly unremarkable. IMPRESSION: OSTEOMYELITIS OF THE FIRST DISTAL PHALANX. GREAT TOE SOFT TISSUE ULCERATION. SOFT TISSUE EDEMA AT THE DORSUM OF THE FOREFOOT TO MIDFOOT. NO SOFT TISSUE FLUID COLLECTION OR ABSCESS. (3) Uncontrolled diabetes mellitus (4) Injury of toe on left foot Washington Copeland Apr 15, 2020 13:46
--- NOTE | 2020-04-15 14:25 | NUR ---
CASE MANAGEMENT:REVIEW 04/15/20 SI: OSTEOMYELITIS OF LT BIG TOE 97.3 74 20 112/66 98% ON RA WBC-4.3 ESR+60 IS: IV ANCEF Q8HR PLAVIX PO QD ASA PO QD : MED/SURG 4 EAST PLAN: PICC LINE
--- NOTE | 2020-04-15 15:25 | NUR ---
INSURANCE CLINICALS/REVIEW FAXED TO [facility] JOL[facility] FAX [phone] TELE [phone] ALYSSA- MATY Strange, EXT [phone]
--- NOTE | 2020-04-15 15:35 | NUR ---
RADIOLOGY NOTE: RIGHT UPPER EXTREMITY PICC LINE PLACEMENT BY DR. GOGO GOMEZ AT 1400 HRS. FA
--- NOTE | 2020-04-15 15:40 | Pre-Procedure Note/Attestation ---
Pre-Procedure Note/Attestation Complete Prior to Procedure Planned Procedure: not applicable Procedure Narrative: PICC Indications for Procedure Pre-Operative Diagnosis: needs IV access Attestation I attest that I discussed the nature of the procedure; its benefits; risks and complications; and alternatives (and the risks and benefits of such alternatives), prior to the procedure, with the patient (or the patient's legal shared services representative). I attest that, if there was a reasonable possibility of needing a blood weller sfusion, the patient (or the patient's legal shared services representative) was given the [facility] standardized written summary, pursuant to the Gagandeep Nenita Blood Safety Act ([place] Health and Safety Code # 1645, as amended). I attest that I re-evaluated the patient just prior to the surgery and that there has been no change in the patient's H&P, except as documented below: Jerson Newman MD Apr 15, 2020 15:40
--- NOTE | 2020-04-15 15:41 | Brief Operative Note ---
Immediate Post Operative Note Operative Note Pre-op Diagnosis: needs IV access Procedure: PICC Post-op Diagnosis: same as pre-op Surgeon: Mercedes Darby Anesthesia: local Specimen: none Complications: none Fluids: none Implant(s) used?: No Jerson Darby MD Apr 15, 2020 15:41
[2020-04-15 16:00] VITALS: BP 114/67
--- NOTE | 2020-04-15 16:10 | Diagnostic Imaging Report ---
Indications: Needs long-term IV access Technique: Procedure performed at bedside. Procedural timeout performed. Ultrasound confirms patent compressible right basilic vein. Total sterile technique, including sterile probe cover and sterile gel, sterile gloves, hand hygiene, hat, mask,, sterile gown, large sterile drape, and preparation with 2% chlorhexidine utilized. Local anesthesia with 1% lidocaine. Under real-time ultrasound guidance, puncture basilic vein using 21-gauge needle, passage 0.018 guidewire, exchange for 4 Congolese peel-away sheath. 4 Congolese Bard dual-lumen power PICC cut to 41 cm. It was inserted through the peel-away sheath. Peel-away sheath and guidewire removed. Catheter fixed to the skin. Both catheter ports aspirated and flushed. Patient tolerated procedure well, without immediate complication. Followup chest x-ray obtained, documents catheter tip position at the cavoatrial junction Impression: Successful bedside placement of right arm PICC under sonographic guidance, as described above.
--- NOTE | 2020-04-15 19:06 | Internal Med Progress Note ---
Subjective Date of Service: Apr 15, 2020 Physician Name Atif Hogue Attending Physician Brayden Rg MD Current Medications Medications (Trade) Dose Ordered Sig/Jerman Route PRN Reason Start Time Stop Time Status Last Admin Dose Admin Acetaminophen (Tylenol) 650 mg Q6H PRN ORAL Temp >100.5 04/12/20 07:45 05/12/20 07:44 Acetaminophen (Tylenol) 650 mg Q6H PRN ORAL PAIN 1-3 04/12/20 08:00 05/12/20 07:59 04/15/20 08:23 Acetaminophen/ Hydrocodone Bitart ([place] 5/325) 1 tab Q6H PRN ORAL pain 4-10 04/12/20 07:45 04/19/20 07:44 Aspirin (ASA) 81 mg DAILY ORAL 04/12/20 09:00 05/27/20 08:59 04/15/20 08:16 Cefazolin Sodium 50 ml @ 100 mls/hr Q8H IVPB 04/13/20 12:00 04/20/20 11:59 04/15/20 11:29 Chlorhexidine Gluconate (Kelli-Hex 2%) 1 applic DAILY@2000 TOPIC 04/15/20 20:00 07/14/20 19:59 Clopidogrel Bisulfate (Plavix) 75 mg DAILY ORAL 04/12/20 09:00 05/12/20 08:59 04/15/20 08:16 Dextrose (Dextrose 50%) 25 ml Q30M PRN IV Hypoglycemia 04/12/20 07:45 07/11/20 07:44 Dextrose (Dextrose 50%) 50 ml Q30M PRN IV Hypoglycemia 04/12/20 07:45 07/11/20 07:44 Heparin Sodium (Porcine) (Heparin 5000 units/ml) 5,000 units EVERY 8 HOURS SUBQ 04/12/20 07:45 05/27/20 07:44 04/15/20 06:03 Heparin Sodium/ Sodium Chloride (Heparin 1000 units/500ml Premix) 1,000 unit ONCE PRN IV picc line placement 04/15/20 12:45 04/17/20 12:44 Insulin Aspart (NovoLOG) BEFORE MEALS AND HS SUBQ 04/12/20 11:30 07/11/20 11:29 04/15/20 16:45 Lidocaine HCl (Xylocaine 1% 30ml) 30 ml ONCE PRN INJ picc line placement 04/15/20 12:45 04/17/20 12:44 Ondansetron HCl (Zofran) 4 mg Q6H PRN IVP Nausea & Vomiting 04/12/20 07:45 05/12/20 07:44 Allergies: Coded Allergies: No Known Allergies (Unverified , 04/12/20) ROS Limited/Unobtainable: No Constitutional: Reports: no symptoms HEENT: Reports: no symptoms Cardiovascular: Reports: no symptoms Respiratory: Reports: no symptoms Gastrointestinal/Abdominal: Reports: no symptoms Genitourinary: Reports: no symptoms Neurologic/Psychiatric: Reports: no symptoms Subjective 60 YO F with history of left 1st toe osteomyelitis admitted with ulcer of left 1st toe. Now ostoemyelitis left 1st toe. Cover for Int Med-Dr Rg. S/P Incision and drainage 04/12/20 Objective Last Vital Signs Date Time Temp Pulse Resp B/P (MAP) Pulse Ox O2 Delivery O2 Flow Rate FiO2 04/15/20 16:00 97.5 89 22 114/67 (83) 97 04/15/20 09:00 Room Air Laboratory Tests Test 04/14/20 21:26 04/15/20 06:20 04/15/20 11:28 04/15/20 16:31 POC Whole Blood Glucose Pending Pending Pending White Blood Count 4.3 K/UL (4.8-10.8) L Red Blood Count 4.36 M/UL (4.20-5.40) Hemoglobin 11.5 G/DL (12.0-16.0) L Hematocrit 36.0 % (37.0-47.0) L Mean Corpuscular Volume 82 FL (80-99) Mean Corpuscular Hemoglobin 26.3 PG (27.0-31.0) L Mean Corpuscular Hemoglobin Concent 31.9 G/DL (32.0-36.0) L Red Cell Distribution Width 12.8 % (11.6-14.8) Platelet Count 365 K/UL (150-450) Mean Platelet Volume 7.6 FL (6.5-10.1) Neutrophils (%) (Auto) 42.3 % (45.0-75.0) L Lymphocytes (%) (Auto) 46.6 % (20.0-45.0) H Monocytes (%) (Auto) 9.6 % (1.0-10.0) Eosinophils (%) (Auto) 0.6 % (0.0-3.0) Basophils (%) (Auto) 0.9 % (0.0-2.0) Erythrocyte Sedimentation Rate 60 MM/HR (0-30) H Sodium Level 140 MMOL/L (136-145) Potassium Level 3.9 MMOL/L (3.5-5.1) Chloride Level 104 MMOL/L (98-107) Carbon Dioxide Level 26 MMOL/L (21-32) Anion Gap 10 mmol/L (5-15) Blood Urea Nitrogen 13 mg/dL (7-18) Creatinine 0.5 MG/DL (0.55-1.30) L Estimat Glomerular Filtration Rate > 60 mL/min (>60) Glucose Level 195 MG/DL (74-106) H Calcium Level 9.9 MG/DL (8.5-10.1) Total Bilirubin 0.2 MG/DL (0.2-1.0) Aspartate Amino Transf (AST/SGOT) 18 U/L (15-37) Alanine Aminotransferase (ALT/SGPT) 15 U/L (12-78) Alkaline Phosphatase 66 U/L (46-116) C-Reactive Protein, Quantitative 1.0 mg/dL (0.00-0.90) H Total Protein 7.7 G/DL (6.4-8.2) Albumin 2.8 G/DL (3.4-5.0) L Globulin 4.9 g/dL Albumin/Globulin Ratio 0.6 (1.0-2.7) L Microbiology Date/Time Source Procedure Growth Status 04/13/20 10:30 Nasal Nares Left MRSA Culture - Final NO METHICILLIN RESISTANT STAPH AUREUS... Complete Intake and Output 04/14/20 04/15/20 19:00 07:00 Intake Total 50 ml Balance 50 ml IV Total 50 ml # Voids 2 2 Objective General Appearance: WD/WN, no apparent distress, alert EENT: PERRL/EOMI, normal ENT inspection Neck: non-tender, normal alignment, supple, normal inspection Cardiovascular: normal peripheral pulses, normal rate, regular rhythm, no gallop/murmur, no JVD Respiratory/Chest: chest wall non-tender, lungs clear, normal breath sounds, no respiratory distress, no accessory muscle use Abdomen: normal bowel sounds, non tender, soft, no organomegaly, no mass Extremities: normal range of motion, non-tender Neurologic: wheat washer II-XII grossly normal, no motor/sensory deficits Skin: normal pigmentation, warm/dry Assessment/Plan Problem List: (1) Uncontrolled diabetes mellitus Assessment & Plan: continue novolog sliding scale (2) Osteomyelitis of great toe of left foot Assessment & Plan: ID=Dr Maurice. Podiatry=Dr Caicedo. Continue ancef per ID (3) Diabetic foot ulcer Assessment & Plan: Wound consult=DR Copeland (4) Peripheral vascular disease due to secondary diabetes (5) Abscess of toe, left Assessment & Plan: S/P bedside I&D by podiatry=Atif Lucas MD Apr 15, 2020 19:06
--- NOTE | 2020-04-15 19:30 | NUR ---
NURSE HAND-OFF: Important Events on Shift:[PICC placed at bedside. Flushed, placed caps] Patient Status: [stable] Diet: [CCHO high] Pending Orders: [CBC, CMP] Pending Results/Labs:[PCR] Pending MD notification:[] Latest Vital Signs: Temperature 97.5 , Pulse 89 , B/P 114 /67 , Respiratory Rate 22 , O2 SAT 97 , Room Air, O2 Flow Rate . Vital Sign Comment: [] Latest Benavides Fall Score: 35 Fall Risk: Medium Risk Safety Measures: Call light Within Reach, Bed Alarm Zone 2, Side Rails Side Rails x2, Bed position Low and Locked. Fall Precautions: Patient Fall Education Report given to [HERNAN Bundy].
--- NOTE | 2020-04-15 19:45 | NUR ---
NURSE NOTES: Received report from Joanne BECERRA. Patient is awake, alert and oriented x4. On room air, breathing is even and unlabored. No complains of pain or distress noted. IV right UA PICC line intact and patent with no bleeding. IV left AC intact and patent sailing lock. Bed low and locked. Call light within reach.
[2020-04-15 20:00] VITALS: BP 122/61
[2020-04-15] MEDS ORDERED: Dyna-Hex 2% Top Sol 2oz TOPIC SCH (20:00)
[2020-04-16] VITALS: BP 124/67
[2020-04-16 04:00] VITALS: BP 100/66
[2020-04-16] MEDS: ceFAZolin 2gm/50ml Premix 50 ML IVPB SCH ×2 (04:04→11:41)
[2020-04-16] MEDS: Heparin 5000 units/ml inj SUBQ SCH ×2 (06:12→13:30)
[2020-04-16] MEDS: NovoLOG Insulin Flexpen SUBQ SCH ×3 (06:13→17:02)
[2020-04-16 07:18] LABS: BASOPHILS % (AUTO) 0.7 % (0.0-2.0); EOSINOPHILS % (AUTO) 0.8 % (0.0-3.0); HEMATOCRIT 33.8 % (37.0-47.0); LYMPHOCYTES % (AUTO) 50.9 % (20.0-45.0); MEAN CORPUSCULAR VOLUME 83 FL (80-99); NEUTROPHILS % (AUTO) 40.7 % (45.0-75.0); PLATELET COUNT 347 K/UL (150-450); RED BLOOD COUNT 4.07 M/UL (4.20-5.40); RED CELL DISTRIBUTION WIDTH 12.9 % (11.6-14.8); WHITE BLOOD COUNT 4.5 K/UL (4.8-10.8)
--- NOTE | 2020-04-16 07:30 | NUR ---
NURSE HAND-OFF: Important Events on Shift: ABX therapy, BS management Patient Status: Stable Diet: CCHO (high) Pending Orders: [] Pending Results/Labs:[] Pending MD notification:[] Latest Vital Signs: Temperature 97.3 , Pulse 78 , B/P 100 /66 , Respiratory Rate 18 , O2 SAT 99 , Room Air, O2 Flow Rate . Vital Sign Comment: VS stable Latest Benavides Fall Score: 35 Fall Risk: Medium Risk Safety Measures: Call light Within Reach, Bed Alarm Zone 2, Side Rails Side Rails x2, Bed position Low and Locked. Fall Precautions: Patient Fall Education Report given to Zoila BECERRA.
[2020-04-16 07:39] LABS: ANION GAP 7 mmol/L (5-15); BLOOD UREA NITROGEN 16 mg/dL (7-18); CALCIUM 9.8 MG/DL (8.5-10.1); CARBON DIOXIDE 28 MMOL/L (21-32); CHLORIDE 107 MMOL/L (98-107); CREATININE 0.6 MG/DL (0.55-1.30); POTASSIUM 3.9 MMOL/L (3.5-5.1); SODIUM 142 MMOL/L (136-145)
[2020-04-16 08:00] VITALS: BP 113/65
--- NOTE | 2020-04-16 08:02 | NUR ---
NURSE NOTES: Received report from Esa BECERRA, patient a/a/o x4 laying in bed with no signs of distress or other issues at this time. IV on the left AC gauge #20 HL. and right upper arm picc line. patient has a dressing in the left toe with 4x4 and kerlix. dressing dry and intact. call light within reach, bed in lowest position, side rales up x2. I will f/u as needed. - plan to d/c home with IV abx.
[2020-04-16] MEDS: Aspirin Baby 81mg ORAL SCH (08:41)
--- NOTE | 2020-04-16 09:11 | Infectious Diseases Prog Note ---
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 GREAT TOE SOFT TISSUE ULCERATION. SOFT TISSUE EDEMA AT THE DORSUM OF THE FOREFOOT TO MIDFOOT. NO SOFT TISSUE FLUID COLLECTION OR ABSCESS. 04/13 ESR 60, CRP 2.8 MRSA nares neg R/o COVID given pandemic, low s/f it in this patient 04/13 COVID PCR p CXR: No acute process HIV screen neg PMH: PVD DM2 Plan: Cont cefazolin 2g IV q8hrs # to target prior known MSSA OM Will need 6 week course of IV abx for acute on chronic osteomyelitis of the L hallux - end date to be 05/24/20 Weekly CBC w diff, BMP, LFTs while on IV abx PICC line placed Will need PCP and Podiatry f/u on discharge Ok to d/c on above abx course from ID standpoint Appreciate Surgery input on if amputation in plans F/u COVID PCR screen - result does not have to keep pt in house, likely neg, was only screening PCR Monitor CBC/CMP Monitor temp curve, hemodynamics Monitor resp status D/w RN Thank you for this consult. [facility] will continue to follow. Subjective Allergies: Coded Allergies: No Known Allergies (Unverified , 04/12/20) AF NAD on RA WBC 4.5 No more pain in her toe RUE PICC placed Objective Last 24 Hour Vital Signs Date Time Temp Pulse Resp B/P (MAP) Pulse Ox O2 Delivery O2 Flow Rate FiO2 04/16/20 08:00 97.5 74 18 113/65 (81) 99 04/16/20 04:00 97.3 78 18 100/66 (77) 99 04/16/20 00:00 97.4 85 18 124/67 (86) 99 04/15/20 21:00 Room Air 04/15/20 20:00 97.9 87 19 122/61 (81) 96 04/15/20 16:00 97.5 89 22 114/67 (83) 97 04/15/20 12:00 97.3 74 20 112/66 (81) 98 Height (Feet): 5 Height (Inches): 8.00 Weight (Pounds): 180 Gen: NAD HEENT: NCAT, EOMI, PERRL Pulm: BL chest rise on RA, non-labored Abd: Non-distended Ext: No c/c/e except for L first toe w/ distal swelling and distal dry ulc eration wo drainage, TTP; today dressings c/d/i Skin: No visible rashes Neuro: Awake, alert, interactive. Intact sensation in LLE Microbiology Date/Time Source Procedure Growth Status 04/13/20 10:30 Nasal Nares Left MRSA Culture - Final NO METHICILLIN RESISTANT STAPH AUREUS... Complete Laboratory Tests Test 04/15/20 11:28 04/15/20 16:31 04/15/20 20:16 04/16/20 04:15 POC Whole Blood Glucose Pending Pending 213 MG/DL (74-106) H White Blood Count 4.5 K/UL (4.8-10.8) L Red Blood Count 4.07 M/UL (4.20-5.40) L Hemoglobin 11.0 G/DL (12.0-16.0) L Hematocrit 33.8 % (37.0-47.0) L Mean Corpuscular Volume 83 FL (80-99) Mean Corpuscular Hemoglobin 26.9 PG (27.0-31.0) L Mean Corpuscular Hemoglobin Concent 32.4 G/DL (32.0-36.0) Red Cell Distribution Width 12.9 % (11.6-14.8) Platelet Count 347 K/UL (150-450) Mean Platelet Volume 7.2 FL (6.5-10.1) Neutrophils (%) (Auto) 40.7 % (45.0-75.0) L Lymphocytes (%) (Auto) 50.9 % (20.0-45.0) H Monocytes (%) (Auto) 7.0 % (1.0-10.0) Eosinophils (%) (Auto) 0.8 % (0.0-3.0) Basophils (%) (Auto) 0.7 % (0.0-2.0) Sodium Level 142 MMOL/L (136-145) Potassium Level 3.9 MMOL/L (3.5-5.1) Chloride Level 107 MMOL/L (98-107) Carbon Dioxide Level 28 MMOL/L (21-32) Anion Gap 7 mmol/L (5-15) Blood Urea Nitrogen 16 mg/dL (7-18) Creatinine 0.6 MG/DL (0.55-1.30) Estimat Glomerular Filtration Rate > 60 mL/min (>60) Glucose Level 139 MG/DL (74-106) H Calcium Level 9.8 MG/DL (8.5-10.1) Test 04/16/20 05:42 POC Whole Blood Glucose 159 MG/DL (74-106) H Current Medications Medications (Trade) Dose Ordered Sig/Jerman Route PRN Reason Start Time Stop Time Status Last Admin Dose Admin Acetaminophen (Tylenol) 650 mg Q6H PRN ORAL Temp >100.5 04/12/20 07:45 05/12/20 07:44 Acetaminophen (Tylenol) 650 mg Q6H PRN ORAL PAIN 1-3 04/12/20 08:00 05/12/20 07:59 04/15/20 08:23 Acetaminophen/ Hydrocodone Bitart ([place] 5/325) 1 tab Q6H PRN ORAL pain 4-10 04/12/20 07:45 04/19/20 07:44 Aspirin (ASA) 81 mg DAILY ORAL 04/12/20 09:00 05/27/20 08:59 04/16/20 08:41 Cefazolin Sodium 50 ml @ 100 mls/hr Q8H IVPB 04/13/20 12:00 04/20/20 11:59 04/16/20 04:04 Chlorhexidine Gluconate (Kelli-Hex 2%) 1 applic DAILY@2000 TOPIC 04/15/20 20:00 07/14/20 19:59 04/15/20 19:55 Clopidogrel Bisulfate (Plavix) 75 mg DAILY ORAL 04/12/20 09:00 05/12/20 08:59 04/16/20 08:41 Dextrose (Dextrose 50%) 25 ml Q30M PRN IV Hypoglycemia 04/12/20 07:45 07/11/20 07:44 Dextrose (Dextrose 50%) 50 ml Q30M PRN IV Hypoglycemia 04/12/20 07:45 07/11/20 07:44 Heparin Sodium (Porcine) (Heparin 5000 units/ml) 5,000 units EVERY 8 HOURS SUBQ 04/12/20 07:45 05/27/20 07:44 04/16/20 06:12 Heparin Sodium/ Sodium Chloride (Heparin 1000 units/500ml Premix) 1,000 unit ONCE PRN IV picc line placement 04/15/20 12:45 04/17/20 12:44 Insulin Aspart (NovoLOG) BEFORE MEALS AND HS SUBQ 04/12/20 11:30 07/11/20 11:29 04/16/20 06:13 Lidocaine HCl (Xylocaine 1% 30ml) 30 ml ONCE PRN INJ picc line placement 04/15/20 12:45 04/17/20 12:44 Ondansetron HCl (Zofran) 4 mg Q6H PRN IVP Nausea & Vomiting 04/12/20 07:45 05/12/20 07:44 Viktoria Maurice M.D. Apr 16, 2020 09:11
[2020-04-16 12:00] VITALS: BP 107/66
--- NOTE | 2020-04-16 12:52 | NUR ---
CASE MANAGEMENT:REVIEW 04/16/20 SI: OSTEOMYELITIS OF LT BIG TOE 97.3 74 20 112/66 98% ON RA WBC-4.3 ESR+60 IS: IV ANCEF Q8HR PLAVIX PO QD ASA PO QD HEPARIN SQ Q8HRS : MED/SURG 4 EAST PLAN: PICC LINE
--- NOTE | 2020-04-16 14:26 | Surgery Progress Note ---
Surgery Progress Note Subjective Additional Comments picc line in on abx feels well dressings going well d/c planning Objective Last 24 Hour Vital Signs Date Time Temp Pulse Resp B/P (MAP) Pulse Ox O2 Delivery O2 Flow Rate FiO2 04/16/20 12:00 97.5 68 18 107/66 (80) 99 04/16/20 09:00 Room Air 04/16/20 08:00 97.5 74 18 113/65 (81) 99 04/16/20 04:00 97.3 78 18 100/66 (77) 99 04/16/20 00:00 97.4 85 18 124/67 (86) 99 04/15/20 21:00 Room Air 04/15/20 20:00 97.9 87 19 122/61 (81) 96 04/15/20 16:00 97.5 89 22 114/67 (83) 97 I&O Intake and Output 04/15/20 04/16/20 19:00 07:00 Intake Total 410 ml 600 ml Balance 410 ml 600 ml Intake Oral 360 ml 500 ml IV Total 50 ml 100 ml # Voids 3 4 Dressing: saturated Cardiovascular: RSR Respiratory: decreased breath sounds Abdomen: soft, non-tender, present bowel sounds, non-distended Extremities: tenderness, no edema, other Laboratory Tests Test 04/15/20 16:31 04/15/20 20:16 04/16/20 04:15 04/16/20 05:42 POC Whole Blood Glucose Pending 213 MG/DL (74-106) H 159 MG/DL (74-106) H White Blood Count 4.5 K/UL (4.8-10.8) L Red Blood Count 4.07 M/UL (4.20-5.40) L Hemoglobin 11.0 G/DL (12.0-16.0) L Hematocrit 33.8 % (37.0-47.0) L Mean Corpuscular Volume 83 FL (80-99) Mean Corpuscular Hemoglobin 26.9 PG (27.0-31.0) L Mean Corpuscular Hemoglobin Concent 32.4 G/DL (32.0-36.0) Red Cell Distribution Width 12.9 % (11.6-14.8) Platelet Count 347 K/UL (150-450) Mean Platelet Volume 7.2 FL (6.5-10.1) Neutrophils (%) (Auto) 40.7 % (45.0-75.0) L Lymphocytes (%) (Auto) 50.9 % (20.0-45.0) H Monocytes (%) (Auto) 7.0 % (1.0-10.0) Eosinophils (%) (Auto) 0.8 % (0.0-3.0) Basophils (%) (Auto) 0.7 % (0.0-2.0) Sodium Level 142 MMOL/L (136-145) Potassium Level 3.9 MMOL/L (3.5-5.1) Chloride Level 107 MMOL/L (98-107) Carbon Dioxide Level 28 MMOL/L (21-32) Anion Gap 7 mmol/L (5-15) Blood Urea Nitrogen 16 mg/dL (7-18) Creatinine 0.6 MG/DL (0.55-1.30) Estimat Glomerular Filtration Rate > 60 mL/min (>60) Glucose Level 139 MG/DL (74-106) H Calcium Level 9.8 MG/DL (8.5-10.1) Test 04/16/20 11:38 POC Whole Blood Glucose Pending Plan Problems: (1) Cellulitis Assessment & Plan: left great toe cellulitis and ulcer MRI noted plan for podiatry faustino isaac for diet local wound care will follow with recs abx thank you podiatry input appreciated abx and picc line limb salvage s/p I&D Pt admitted with Full thickness Ulcer tip of R 1st metatarsal with surrounding necrosis of metatarsal (L)1.5cm x (W)1.5cm x (D)0.4cm.NO odor or exudate noted. Tx.Plan: Cleanse with Hydrogen Peroxide . Cover with Gauze and wrap with Kerlix Daily and prn. podiatry / vascular input appreciated plan outpt angio surgical intervention after cont abx and local wound care prior on picc and iv abx cont abx id input There is markedly increased STIR signal and decreased T1 signal within the first distal phalanx. No other marrow signal abnormality is demonstrated. There is edema of the subcutaneous fat of the dorsum of the foot. There is circumferential edema of the soft tissues of the great toe. No discrete fluid collection to suggest drainable abscess demonstrated. Impression: Findings consistent with osteomyelitis of the first distal phalanx Dorsal soft tissue edema of the forefoot as well as circumferential edema of the great toe, most likely indicating cellulitis given stated clinical history. No evidence of drainable abscess Negative for evidence of significant peripheral arterial insufficiency on the right Monophasic but otherwise preserved waveforms on the left at the popliteal artery and distal levels. Suspect on the basis of decreased peripheral resistance due to hyperemia, but mild suprageniculate stenosis also possible. Abdominal aorta: There is minimal calcified atherosclerotic plaquing of the abdominal aorta. No significant aortic stenosis, aneurysm, or dissection. The celiac axis, superior mesenteric artery, and proximal branch vessels are patent and nonstenotic. Patent nonstenotic bilateral renal arteries. Patent inferior mesenteric artery. Right lower extremity: Patent and nonstenotic right common, external, and internal iliac arteries. Patent and nonstenotic right common femoral, profunda femoral, superficial femoral arteries. There is calcified atherosclerotic plaquing but no significant stenosis of the popliteal artery. The anterior tibial artery is patent, nonstenotic, reaches the ankle and forms a dorsalis pedis artery. The tibioperoneal trunk demonstrates calcified plaquing but no significant stenosis. It is patent and nonstenotic. The posterior tibial artery is patent, nonstenotic, reaches the ankle. The terminal plantar branch of the posterior tibial artery demonstrates a possibly significant stenosis as it passes the calcaneus, and appears to occlude distally. The peroneal artery occludes shortly beyond its origin and remains occluded over its length Left lower extremity: Patent and nonstenotic common, external, and internal iliac arteries. Patent and nonstenotic common femoral, is profunda femoral, superficial femoral arteries. There is focal stenosis, likely 50% or greater, of the mid popliteal artery at about the level of the knee joint. The anterior tibial artery demonstrates atherosclerotic calcification but no definite focal stenosis. The tibioperoneal trunk and posterior tibial arteries are patent, nonstenotic, the latter reaching well beyond the ankle. The peroneal artery is highly stenotic at its origin, occludes shortly beyond the origin, does not reconstitute. Nonvascular: The included lung bases demonstrate slight mosaic perfusion. The visualized portions of the liver are unremarkable. Unusual densities are seen around the gallbladder fossa. There is a fluid structure that appears to be the gallbladder, although this could represent a small postoperative biloma if there is been prior cholecystectomy. The bile ducts are nondilated. The pancreas, spleen, adrenals, kidneys are unremarkable. No retroperitoneal or mesenteric mass or adenopathy. No pelvic mass or adenopathy. The uterus and ovaries are unremarkable. The bladder is unremarkable. Considerable stool is seen throughout the colon. No small bowel distention. No free or loculated intraperitoneal gas or fluid is evident. The appendix is normal. No small bowel distention. There are degenerative changes of the lumbar spine. IMPRESSION: Stenosis, likely significant, of the mid left popliteal artery. This would likely be amenable to angioplasty Occlusion of the left peroneal artery. No other evidence of left lower extremity peripheral arterial insufficiency Occluded right peroneal artery. Probably occluded terminal branch of the right posterior tibial artery below the ankle. No other evidence of significant right lower extremity arterial insufficiency Somewhat unusual appearance to the gallbladder fossa, may reflect calcifications in or around the gallbladder wall, versus prior cholecystectomy and biloma. Corre late with surgical history (2) Osteomyelitis Assessment & Plan: Findings similar to that noted on the plain film exam. There is abnormal bony resorption noted of the first distal tuft. Marrow edema noted extensively throughout the first distal phalanx on both STIR and T1 images. Findings consistent with focal osteomyelitis. The other bony appendages otherwise appear intact and retain normal signal. Joint spaces appear well-maintained. There is soft tissue swelling noted at the dorsum of the forefoot to midfoot. No fluid collection or abscess identified. Tendinous and ligamentous structures of the forefoot and midfoot appear grossly unremarkable. IMPRESSION: OSTEOMYELITIS OF THE FIRST DISTAL PHALANX. GREAT TOE SOFT TISSUE ULCERATION. SOFT TISSUE EDEMA AT THE DORSUM OF THE FOREFOOT TO MIDFOOT. NO SOFT TISSUE FLUID COLLECTION OR ABSCESS. (3) Uncontrolled diabetes mellitus (4) Injury of toe on left foot Korey[place] elder Apr 16, 2020 14:26
--- NOTE | 2020-04-16 15:21 | NUR ---
CLOTH FOLDER HAND NOTES SPOKE WITH PT ON THE PHONE, PT IS DECLINING SNF AT THIS TIME. STATED SHE WOULD LIKE TO GO HOME. INQUIRY FAXED TO [facility] FOR [facility]. REQUESTED DC FROM . WILL FOLLOW UP. Addendum: 04/16/20 at 1723 by BRIDGETT KOROMA RN RECEIVED A CALL FROM DORY FROM [facility], PT ACCEPTED. NATASHA BOSTON TO SERVICE THE PT FOR ATB IV. OK TO DC PATIENT ONCE DC ORDER IS GIVEN.[facility] TO CONTACT PT FOR DELIVERY. NURSE MADE AWARE. NATASHA BOSTON [phone] [facility] [phone]
--- NOTE | 2020-04-16 15:55 | NUR ---
insurance CLINICALS/REVIEW FAXED TO [facility] FAX [phone] TELE [phone] ALYSSA- MATY Strange, EXT [phone]
[2020-04-16 16:00] VITALS: BP 112/67
[2020-04-16] MEDS ORDERED: CEFAZOLIN2 GM/50 ML IV ×2 (17:44→17:46)
--- NOTE | 2020-04-16 18:30 | Internal Med Progress Note ---
Subjective Date of Service: Apr 16, 2020 Physician Name Atif Hogue Attending Physician Brayden Rg MD Current Medications Medications (Trade) Dose Ordered Sig/Jerman Route PRN Reason Start Time Stop Time Status Last Admin Dose Admin Acetaminophen (Tylenol) 650 mg Q6H PRN ORAL Temp >100.5 04/12/20 07:45 05/12/20 07:44 Acetaminophen (Tylenol) 650 mg Q6H PRN ORAL PAIN 1-3 04/12/20 08:00 05/12/20 07:59 04/15/20 08:23 Acetaminophen/ Hydrocodone Bitart ([place] 5/325) 1 tab Q6H PRN ORAL pain 4-10 04/12/20 07:45 04/19/20 07:44 Aspirin (ASA) 81 mg DAILY ORAL 04/12/20 09:00 05/27/20 08:59 04/16/20 08:41 Cefazolin Sodium 50 ml @ 100 mls/hr Q8H IVPB 04/13/20 12:00 05/24/20 23:59 04/16/20 11:41 Chlorhexidine Gluconate (Kelli-Hex 2%) 1 applic DAILY@2000 TOPIC 04/15/20 20:00 07/14/20 19:59 04/15/20 19:55 Clopidogrel Bisulfate (Plavix) 75 mg DAILY ORAL 04/12/20 09:00 05/12/20 08:59 04/16/20 08:41 Dextrose (Dextrose 50%) 25 ml Q30M PRN IV Hypoglycemia 04/12/20 07:45 07/11/20 07:44 Dextrose (Dextrose 50%) 50 ml Q30M PRN IV Hypoglycemia 04/12/20 07:45 07/11/20 07:44 Heparin Sodium (Porcine) (Heparin 5000 units/ml) 5,000 units EVERY 8 HOURS SUBQ 04/12/20 07:45 05/27/20 07:44 04/16/20 13:30 Heparin Sodium/ Sodium Chloride (Heparin 1000 units/500ml Premix) 1,000 unit ONCE PRN IV picc line placement 04/15/20 12:45 04/17/20 12:44 Insulin Aspart (NovoLOG) BEFORE MEALS AND HS SUBQ 04/12/20 11:30 07/11/20 11:29 04/16/20 17:02 Lidocaine HCl (Xylocaine 1% 30ml) 30 ml ONCE PRN INJ picc line placement 04/15/20 12:45 04/17/20 12:44 Ondansetron HCl (Zofran) 4 mg Q6H PRN IVP Nausea & Vomiting 04/12/20 07:45 05/12/20 07:44 Allergies: Coded Allergies: No Known Allergies (Unverified , 04/12/20) ROS Limited/Unobtainable: No Constitutional: Reports: no symptoms HEENT: Reports: no symptoms Cardiovascular: Reports: no symptoms Respiratory: Reports: no symptoms Gastrointestinal/Abdominal: Reports: no symptoms Genitourinary: Reports: no symptoms Neurologic/Psychiatric: Reports: no symptoms Subjective 60 YO F with history of left 1st toe osteomyelitis admitted with ulcer of left 1st toe. Now ostoemyelitis left 1st toe. Cover for Int Rafy-Dr Rg. S/P Incision and drainage 04/12/20 Objective Last Vital Signs Date Time Temp Pulse Resp B/P (MAP) Pulse Ox O2 Delivery O2 Flow Rate FiO2 04/16/20 16:00 97.5 78 18 112/67 (82) 99 04/16/20 09:00 Room Air Laboratory Tests Test 04/15/20 20:16 04/16/20 04:15 04/16/20 05:42 04/16/20 11:38 POC Whole Blood Glucose 213 MG/DL (74-106) H 159 MG/DL (74-106) H Pending White Blood Count 4.5 K/UL (4.8-10.8) L Red Blood Count 4.07 M/UL (4.20-5.40) L Hemoglobin 11.0 G/DL (12.0-16.0) L Hematocrit 33.8 % (37.0-47.0) L Mean Corpuscular Volume 83 FL (80-99) Mean Corpuscular Hemoglobin 26.9 PG (27.0-31.0) L Mean Corpuscular Hemoglobin Concent 32.4 G/DL (32.0-36.0) Red Cell Distribution Width 12.9 % (11.6-14.8) Platelet Count 347 K/UL (150-450) Mean Platelet Volume 7.2 FL (6.5-10.1) Neutrophils (%) (Auto) 40.7 % (45.0-75.0) L Lymphocytes (%) (Auto) 50.9 % (20.0-45.0) H Monocytes (%) (Auto) 7.0 % (1.0-10.0) Eosinophils (%) (Auto) 0.8 % (0.0-3.0) Basophils (%) (Auto) 0.7 % (0.0-2.0) Sodium Level 142 MMOL/L (136-145) Potassium Level 3.9 MMOL/L (3.5-5.1) Chloride Level 107 MMOL/L (98-107) Carbon Dioxide Level 28 MMOL/L (21-32) Anion Gap 7 mmol/L (5-15) Blood Urea Nitrogen 16 mg/dL (7-18) Creatinine 0.6 MG/DL (0.55-1.30) Estimat Glomerular Filtration Rate > 60 mL/min (>60) Glucose Level 139 MG/DL (74-106) H Calcium Level 9.8 MG/DL (8.5-10.1) Test 04/16/20 16:29 POC Whole Blood Glucose 255 MG/DL (74-106) H Intake and Output 04/15/20 04/16/20 19:00 07:00 Intake Total 410 ml 600 ml Balance 410 ml 600 ml Intake Oral 360 ml 500 ml IV Total 50 ml 100 ml # Voids 3 4 Objective General Appearance: WD/WN, no apparent distress, alert EENT: PERRL/EOMI, normal ENT inspection Neck: non-tender, normal alignment, supple, normal inspection Cardiovascular: normal peripheral pulses, normal rate, regular rhythm, no gallop/murmur, no JVD Respiratory/Chest: chest wall non-tender, lungs clear, normal breath sounds, no respiratory distress, no accessory muscle use Abdomen: normal bowel sounds, non tender, soft, no organomegaly, no mass Extremities: normal range of motion, non-tender Neurologic: catering operations manager II-XII grossly normal, no motor/sensory deficits Skin: normal pigmentation, warm/dry Assessment/Plan Problem List: (1) Uncontrolled diabetes mellitus Assessment & Plan: continue novolog sliding scale (2) Osteomyelitis of great toe of left foot Assessment & Plan: ID=Dr Maurice. Podiatry=Dr Caicedo. Continue ancef for 6 weeks total per ID (3) Diabetic foot ulcer Assessment & Plan: Wound consult=DR Copeland (4) Peripheral vascular disease due to secondary diabetes (5) Abscess of toe, left Assessment & Plan: S/P bedside I&D by podiatry=DR Tesfaye Status Narrative D/C home with home health today 04/16/20 Atif Hogue MD Apr 16, 2020 18:30
--- NOTE | 2020-04-16 18:33 | NUR ---
NURSE NOTES: Received order to d/c home. discharge instructions and belongings given to the patient as well as her home medications. peripheral IV removed and keep the PICC line to be use for her home IV abx for 6weeks. patient is aware and has the information to call home health as well as infusion pharmacy. patient notify family and will provide transportation. I will f/u as needed [facility]: [phone] Infusion: IV [facility]: [phone]
--- NOTE | 2020-04-16 19:21 | NUR ---
NURSE NOTES: Report given to Angeline BECERRA, patient in stable condition. patient left the floor with no signs of distress or other issues at this time.
--- NOTE | 2020-04-18 16:16 | Discharge Summary ---
Discharge Summary Discharge Summary _ DATE OF ADMISSION: 04/12/2020 DATE OF DISCHARGE: 04/16/2020 DISCHARGED BY: Dr. Rg REASON FOR ADMISSION: 60 years old female with past medical history significant for peripheral vascular disease, diabetes mellitus type 2, poorly controlled, left foot first toe diabetic foot ulcer with prior history of osteomyelitis, presented to emergency department complaining of the left foot pain, swelling and drainage. Patient apparently did not have any insurance prior and was started on oral antibiotics. Patient had this ulcer for about a year. Her wound did not improve. She denied fever and chills. No chest pain or shortness of breath After initial evaluation in emergency room patient was admitted to the hospital with left foot diabetic foot ulcer and osteomyelitis. X-ray of the left foot revealed osteomyelitis of the first distal phalanx. CONSULTANTS: ID specialist Dr. Maurice web developer programmer Dr. Tesfaye surgery Dr. Copeland [facility] COURSE: Patient admitted to medical surgical floor. Patient subsequently undergone MRI of the left foot , which revealed osteomyelitis of the first distal phalanx. Great toe soft tissue ulceration. Soft tissue edema at the dorsum of the forefoot to midfoot. No soft tissue fluid collection or abscess. Patient started on antibiotic as per ID specialist recommendation. Blood cultures were negative. COVID-19 by PCR was not detected. PICC line was placed for long-term IV antibiotics. ID specialist recommended 6 weeks of antibiotic with Ancef to target prior known MSSA osteomyelitis. Medicaid Plan Compliance Director seen and evaluated patient Incision and drainage was done at the bedside to release the purulent drainage. Wound then was flushed with normal saline and hydrogen peroxide and then dry dressing applied. Surgeon closely followed. Surgeon recommended outpatient angiogram and surgical intervention afterwards. At this time continue antibiotics and local wound care. Home medication continued. Blood sugar was managed with sliding scale of insulin. DVT prophylaxis provided. Home health was arranged. Patient to follow-up with the PCP and podiatry on discharge. Patient will need weekly CBC with differential , BMP and LFT, while on antibiotics. FINAL DIAGNOSES: Left first toe acute on chronic osteomyelitis History of MSSA osteomyelitis of left first toe Diabetic foot ulcer Abscess of the toe, left Peripheral vascular disease Diabetes mellitus [id number] DISCHARGE MEDICATIONS: See Medication Reconciliation list. DISCHARGE INSTRUCTIONS: Patient was discharged home with home health services. Follow up with primary care provider in one week. I have been assigned to dictate discharge summary for this account. I was not involved in the patient's management. Zaria Oneal NP Apr 18, 2020 16:16
== END 2020-04-16 19:15 | disposition home or self-care (01) | DRG 197 ==
LOC: EMR 01:10 → 4E 02:21 → EDBEDREQ 03:57
PROC: 0Y9N3ZZ Drainage of Left Foot, Percutaneous Approach (ICD-10-PCS; principal; 2020-04-12)
PROC: 02HV33Z Insertion of Infusion Device into Superior Vena Cava, Percutaneous Approach (ICD-10-PCS; 2020-04-15)
DX: E11.51 Type 2 diabetes mellitus with diabetic peripheral angiopathy without gangrene (principal); M86.172 Other acute osteomyelitis, left ankle and foot; E11.621 Type 2 diabetes mellitus with foot ulcer; L03.032 Cellulitis of left toe; L97.529 Non-pressure chronic ulcer of other part of left foot with unspecified severity; L02.612 Cutaneous abscess of left foot; M86.672 Other chronic osteomyelitis, left ankle and foot; E11.65 Type 2 diabetes mellitus with hyperglycemia; B95.61 Methicillin susceptible Staphylococcus aureus infection as the cause of diseases classified elsewhere; Z79.82 Long term (current) use of aspirin; Z79.4 Long term (current) use of insulin; I70.202 Unspecified atherosclerosis of native arteries of extremities, left leg
CPT/HCPCS: 36415; 36569; 71045; 76937; 80048; 80053; 80202; 82962; 83605; 83735; 84100; 85025; 85651; 86140; 86703; 87040; 87081; 96365; 99285; J1815